=== PATIENT | female | born 1980 | race Caucasian/White ===

== ENCOUNTER 2018-12-20 11:29 | Observation (INO) | payer OTHER ==
[2018-12-20] MEDS ORDERED: Sodium Chloride 0.9% 1000 ML 1,000 ML IV STA (11:39)
[2018-12-20] MEDS: Zofran 4 MG/2 ML VIAL IV PRN (11:59)
[2018-12-20] MEDS: Levofloxacin 500MG/100ML D5W 500 MG/100 ML BAG IV SCH (12:02)
[2018-12-20] MEDS: Lactated Ringers 1,000 ML IV SCH ×2 (12:02→23:30)
[2018-12-20 12:08] LABS: BASOPHIL % 0.2 % (0.0-0.4); Basophil (Absolute #) 0.01 (0-0.4); Eosinophil % 4.9 % (0.00-5.0); Eosinophil (Absolute #) 0.24 (0-0.5); Granulocyte Absolute (ANC) 2.96 (1.4-6.9); Hematocrit 40.5 % (35-47); Hemoglobin 13.5 gm/dl (12.0-16.0); Lymphocyte (Absolute #) 1.23 (1.0-4.6); Lymphocytes % 25.4 % (24.0-44.0); Mean Cell Volume 92.3 fl (78-100); Mean Corpuscular Hemoglobin 30.8 pg (26-32); Mean Corpuscular Hgb Concent. 33.3 g/dl (32-36); Mean Platelet Volume 11.8 fl (6-9.5); Monocyte (Absolute #) 0.41 (0.0-1.3); Monocytes % 8.5 % (0.0-12.0); Platelet Count 218 K/mm3 (150-450); Red Blood Count 4.39 M/mm3 (4.1-5.4); Red Cell Distribution Width 14.1 % (11.5-14.0); White Blood Count 4.9 K/mm3 (4.0-10.5)
[2018-12-20 12:25] LABS: ALBUMIN 3.9 g/dL (3.5-5.0); ALKALINE PHOSPHATASE 42 U/L (38-126); AMYLASE 56 U/L (30-110); ANION GAP 15.6 MEQ/L (5-15); BLOOD UREA NITROGEN 9 mg/dL (7-17); CHLORIDE 110 mmol/L (98-107); Carbon Dioxide 18 mmol/L (22-30); Creatinine 1 0.71 mg/dL (0.52-1.04); Glucose 94 mg/dL (74-106); Potassium 3.8 mmol/L (3.5-5.1); SGOT/AST 31 U/L (14-36); SGPT/ALT 21 U/L (0-35); SODIUM 140 mmol/L (137-145); Total Protein 7.1 g/dL (6.3-8.2)
[2018-12-20] MEDS ORDERED: PROVENTIL COMMON CANISTER IH PRN (12:54)
[2018-12-20] MEDS ORDERED: Cyclobenzaprine 10 MG PO PRN (13:00)
[2018-12-20] MEDS ORDERED: MEDICATION INTERVENTION MC SCH (13:15)
[2018-12-20] MEDS: Protonix 40MG Tablet PO SCH (13:26)
[2018-12-20 16:49] LABS: Appearance TURBID (CLEAR); Bacteria RARE /HPF (NEGATIVE); Bilirubin NEGATIVE (NEGATIVE); Blood NEGATIVE Ery/ul (0-5); Epithelial Cells MODERATE /HPF (FEW); Glucose NEGATIVE (NEGATIVE); Hyaline Casts 0-2 /LPF (0-2); Ketones MODERATE (NEGATIVE); Leukocyte Esterase LARGE (NEGATIVE); Mucus SLIGHT /HPF (NEGATIVE); Nitrite NEGATIVE (NEGATIVE); Protein,Urine Dip NEGATIVE (Negative); Specific Gravity 1.021 (1.005-1.025); Urobilinogen NEGATIVE mg/dL (0-1); WBC 51-100 /HPF (0-5)
[2018-12-20] MEDS: Norco 10/325 MG Tablet PO PRN (20:13)
--- NOTE | 2018-12-20 20:32 | XRAY ---
Indication: Abdomen pain. Multiple contiguous axial images obtained through the abdomen and pelvis without contrast as ordered. Comparison: None Lung bases demonstrates right middle lobe calcified and noncalcified granulomas. No infiltrate or effusion. Heart is not enlarged. Noncontrasted stomach and bowel loops appear nonobstructed. Previous gastric bypass surgery. Normal appendix. There is a 5.3 x 3.7 x 3.7 cm right pelvic dermoid/teratoma mass. No free fluid/air. Spleen is enlarged measuring 13.4 cm in greatest axial dimension. Remaining liver, gallbladder, pancreas, spleen, adrenal glands, kidneys, ureters, uterus, and aorta appear unremarkable for noncontrast exam. Osseous structures intact with mild lower lumbar degenerative changes. Impression: 1. Right pelvic dermoid/teratoma mass as detailed. 2. Incidental right middle lobe calcified/noncalcified granulomas and splenomegaly. 3. Remaining CT abdomen/pelvis without contrast exam is negative. Comment: Preliminary interpretation was made by [facility]. No critical discrepancy. CTDI 23.68
--- NOTE | 2018-12-20 20:34 | XRAY ---
Indication: UTI. Pain. Comparison: None KUB nonacute and nonobstructed with gastric bypass surgery and CT proven right pelvic dermoid/teratoma. Remaining solid organs and osseous structures unremarkable. Comment: Preliminary interpretation was made by [facility]. No critical discrepancy.
[2018-12-20] MEDS: Prozac 20 MG PO SCH (23:26)
[2018-12-21] MEDS: Zofran 4 MG/2 ML VIAL IV PRN ×4 (07:54→21:59)
[2018-12-21] MEDS: Norco 10/325 MG Tablet PO PRN ×3 (07:56→17:29)
[2018-12-21] MEDS: Protonix 40MG Tablet PO SCH (08:36)
[2018-12-21] MEDS: Levofloxacin 500MG/100ML D5W 500 MG/100 ML BAG IV SCH (08:37)
[2018-12-21] MEDS: Lactated Ringers 1,000 ML IV SCH ×2 (08:42→17:33)
[2018-12-21] MEDS ORDERED: NON-FORMULARY ITEM (Omeprazole [Prilosec] 20 MG) PO SCH (10:00)
[2018-12-21] MEDS ORDERED: NON-FORMULARY ITEM (Fluticasone/Vilanterol [Breo Ellipta 100-25 Mcg Inh] 1 EACH) IH SCH (10:00)
--- NOTE | 2018-12-21 10:09 | PCM.HP ---
History of Present Illness - Chief Complaint Chief Complaint: uti History of Present Illness: is a 38 year old female pt of mine from [facility] with congentical myasthenia syndrome, thyroid nodule, obesity, and recent hx bariatric surgery ( October 2018) who has been treated twice for UTI in the past 1 month. She was initially given rocephin IM x 3d after UA done on 12/09/18 (which ended up mixed colonies), then with recurrence of sx on 12/16/18 she was started on macrobid, which she could not tolerate (this Ucx grew mixed colonies as well). Two days ago she called the office c/o low grade fevers and blood in the urine. She was instructed to go to as I was done seeing pts for the day. She went the next day (yesterday) and was admitted directly by me after I spoke with the nurse practitioner. Her UA showed 50-100 WBC and 3-5 RBC. neg nitrites. Pt showed me a picture of blood tinged mucous that she indicates came from her urethra. Temps were up to 99.9 at home. Was having LUQ/ epigastric pain, 8/10, intermittent, dull with sharp overtones, worse with eating. She had a question of a stone on the ureter on KUB so CT of the abd/pelvis was done which showed a 5.3cm x 3.7cm x 3.7 cm dermoid/teratoma mass in the R pelvis. Pt was admitted on IV levaquin. She is not feeling well today. Was given CLD but she has a poor appetite and feels she would do better on a regular diet. - Review of Systems Constitutional: Weight Loss (had bariatric surgery ) Cardiac: Edema (LE later in the day) Abdominal/Gastrointestinal: Abdominal Pain, Vomiting (of abx pills recently), Appetite Changes Genitourinary Symptoms: Frequency, Hematuria Skin: Rash (itchy that comes and goes, on back) Neurological: Dizziness, Other (no syncope) Psychological: No Anxiety, No Depression, No Suicidal Ideations, No Homicidal Ideations Medications & Allergies Home Medications: Home Medication List Cyclobenzaprine HCl 10 mg [Cyclobenzaprine 10 MG] 10 mg PO TIDPRN [History Confirmed 12/20/18] Hydrocodone/APAP 10/325 mg [[place] 10/325 MG Tablet] 1 tab PO QIDPRN PRN [History Confirmed 12/20/18] Omeprazole [Prilosec] 20 mg PO DAILY 06/30/15 [History Confirmed 12/20/18] Albuterol Common Canister [Proventil Common Canister] 2 puff IH Q4H PRN [History Confirmed 12/20/18] Fluoxetine HCl 20 mg [Prozac 20 MG] 1 cap PO HS 12/20/18 [History Confirmed 12/20/18] Fluticasone/Vilanterol [Breo Ellipta 100-25 Mcg INH] 1 each IH DAILY 12/20/18 [ History Confirmed 12/20/18] Pedi Multivit No.25/Folic Acid [Flintstones Multivit Chew Tab] 2 tab PO DAILY [History Confirmed 12/20/18] Vit D3/Folic Acid/B2/B6/B12 [Folgard Tablet] 1 each PO DAILY 12/20/18 [History Confirmed 12/20/18] Allergies/Adverse Reactions: Allergies Allergy/AdvReac Type Severity Reaction Status Date / Time NSAIDS (Non-Steroidal AdvReac Unknown Verified 12/20/18 23:25 Anti-Inflamma - Past Medical History Past Medical History: Yes Neurological History: Migraines ENT History: No Pertinent History Cardiac History: No Pertinent History Respiratory History: No Pertinent History Endocrine Medical History: Hypothyroidism Musculoskelatal History: No Pertinent History GI Medical History: GERD History: No Pertinent History Pyscho-Social History: No Pertinent History Reproductive Disorders: Menstrual Problems Comment: PT. TO HAVE HEART CATH 07/08/15; HX L-SPINE SURGERY - Female History Are you now?: No - Past Surgical History Past Surgical History: Yes Neuro Surgical History: No Pertinent History Cardiac History: No Pertinent History Respiratory Surgery: No Pertinent History GI Surgical History: No Pertinent History Genitourinary Surgical Hx: No Pertinent History Musculskeletal Surgical Hx: Orthopedic Surgery Female Surgical History: Other Other Surgical History: uterine thermal ablation, back surgery,L knee. D & C , several cyst. removed. nose. thyroid biopsy. tonsillectomy. - Social History Smoking Status: Never smoker Exposure to second hand smoke: No Alcohol: None Drug Use: none - Physical Exam Vital Signs: Vital Signs - 24 hr Temp Pulse Resp BP Pulse Ox 12/21/18 07:05 98.2 F 66 18 125/60 99 12/21/18 04:00 97.8 F 62 18 106/56 96 12/21/18 00:00 98.4 F 64 18 120/64 95 12/20/18 19:32 98.5 F 70 18 115/71 95 12/20/18 16:00 97.9 F 70 16 134/65 99 12/20/18 13:44 97 12/20/18 13:42 76 18 96 12/20/18 13:10 97.0 F 80 18 112/71 94 L 12/20/18 12:00 112/71 12/20/18 11:51 97.0 F 80 18 94 L General Appearance: no apparent distress, alert, obese Neurologic Exam: oriented x 3, cooperative Eye Exam: eyes nml inspection Ears, Nose, Throat Exam: moist mucous membranes Neck Exam: normal inspection Respiratory Exam: normal breath sounds, lungs clear, No crackles/rales, No rhonchi, No wheezing Cardiovascular Exam: regular rate/rhythm, normal heart sounds, No murmur Gastrointestinal/Abdomen Exam: soft, normal bowel sounds, tenderness (RUQ, LUQ, RLQ), No distention, No mass, No guarding, No rebound Back Exam: normal inspection, No CVA tenderness, No rash Extremity Exam: normal inspection, No pedal edema, No swelling Results - Labs Lab/Micro Results: Lab Results-Last 24 Hours 12/20/18 12/20/18 12/20/18 Range/Units 12:06 12:06 15:42 WBC 4.9 (4.0-10.5) K/mm3 RBC 4.39 (4.1-5.4) M/mm3 Hgb 13.5 (12.0-16.0) gm/dl Hct 40.5 (35-47) % MCV 92.3 (78-100) fl MCH 30.8 (26-32) pg MCHC 33.3 (32-36) g/dl RDW 14.1 H (11.5-14.0) % Plt Count 218 (150-450) K/mm3 MPV 11.8 H (6-9.5) fl Gran % 61.0 (36.0-66.0) % Eos # (Auto) 0.24 (0-0.5) Absolute Lymphs (auto) 1.23 (1.0-4.6) Absolute Monos (auto) 0.41 (0.0-1.3) Lymphocytes % 25.4 (24.0-44.0) % Monocytes % 8.5 (0.0-12.0) % Eosinophils % 4.9 (0.00-5.0) % Basophils % 0.2 (0.0-0.4) % Absolute Granulocytes 2.96 (1.4-6.9) Basophils # 0.01 (0-0.4) Sodium 140 (137-145) mmol/L Potassium 3.8 (3.5-5.1) mmol/L Chloride 110 H (98-107) mmol/L Carbon Dioxide 18 L (22-30) mmol/L Anion Gap 15.6 H (5-15) MEQ/L BUN 9 (7-17) mg/dL Creatinine 0.71 (0.52-1.04) mg/dL Estimated GFR > 60.0 ML/MIN Glucose 94 (74-106) mg/dL Calcium 9.0 (8.4-10.2) mg/dL Total Bilirubin 1.10 (0.2-1.3) mg/dL AST 31 (14-36) U/L ALT 21 (0-35) U/L Alkaline Phosphatase 42 (38-126) U/L Serum Total Protein 7.1 (6.3-8.2) g/dL Albumin 3.9 (3.5-5.0) g/dL Amylase 56 (30-110) U/L Lipase 69 (23-300) U/L Urine Color CARISSA (YELLOW) Urine Appearance TURBID (CLEAR) Urine pH 5.0 (5-6) Ur Specific [place] 1.021 (1.005-1.025) Urine Protein NEGATIVE (Negative) Urine Ketones MODERATE (NEGATIVE) Urine Blood NEGATIVE (0-5) Charly/ul Urine Nitrite NEGATIVE (NEGATIVE) Urine Bilirubin NEGATIVE (NEGATIVE) Urine Urobilinogen NEGATIVE (0-1) mg/dL Ur Leukocyte Esterase LARGE (NEGATIVE) Urine WBC (Auto) 51-100 (0-5) /HPF Urine RBC (Auto) 3-5 (0-2) /HPF U Hyaline Cast (Auto) 0-2 (0-2) /LPF U Epithel Cells (Auto) MODERATE (FEW) /HPF Urine Bacteria (Auto) RARE (NEGATIVE) /HPF Unidentified Crystals 2-5 (NEGATIVE) /HPF Urine Mucus (Auto) SLIGHT (NEGATIVE) /HPF Urine Culture Reflexed YES (NO) Urine Glucose NEGATIVE (NEGATIVE) mg/dL - Radiology Impressions Radiology Exams & Impressions: Radiology Procedures Category Date Time Status ABDOMEN AND PELVIS W/0 CONTRAS [CT] Routine Exams 12/20/18 15:37 Completed KUB Stat Exams 12/20/18 12:37 Completed - Other Procedures and Tests Respiratory Therapy 12/20/18 13:40 Respiratory MDI UD 12/20/18 13:41 Respiratory Therapy Assessment DAILY Assessment/Plan (1) UTI (urinary tract infection) Current Visit: Yes Status: Acute Qualifiers: Urinary tract infection type: acute cystitis Assessment & Plan: Dermoid/teratoma per CT abd/pelvis without IV contrast. Will have her f/u about this outpatient. I spoke with the compensation associate surgeon for that group, Dr. Robert Gordon, who indicated that they would not need to see the pt for this procedure. He recommended f/u with [facility] and stated that surgery for this tumor should not interfere with her recent gastric bypass. If she cannot or prefers not to go to for tx (as I usually refer to [facility]), Dr. Gordon recommended either Dr. Hoover (if she prefers a female physician) at the [facility] in [facility], or Dr. Nahid Houston (if she prefers a male physician) at [facility] [place]. Code(s): N39.0 - URINARY TRACT INFECTION, SITE NOT SPECIFIED (2) Pelvic mass Current Visit: Yes Status: Acute Assessment & Plan: Dermoid/Teratoma per CT without contrast. 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 Code(s): Z98.84 - BARIATRIC SURGERY STATUS
[2018-12-21 11:15] LABS: BASOPHIL % 0.3 % (0.0-0.4); Basophil (Absolute #) 0.01 (0-0.4); Eosinophil % 5.9 % (0.00-5.0); Eosinophil (Absolute #) 0.23 (0-0.5); Granulocytes % 56.2 % (36.0-66.0); Hematocrit 33.7 % (35-47); Hemoglobin 11.2 gm/dl (12.0-16.0); Lymphocyte (Absolute #) 1.12 (1.0-4.6); Lymphocytes % 28.6 % (24.0-44.0); Mean Cell Volume 93.1 fl (78-100); Mean Corpuscular Hemoglobin 30.9 pg (26-32); Mean Corpuscular Hgb Concent. 33.2 g/dl (32-36); Monocyte (Absolute #) 0.35 (0.0-1.3); Platelet Count 168 K/mm3 (150-450); Red Blood Count 3.62 M/mm3 (4.1-5.4); Red Cell Distribution Width 13.8 % (11.5-14.0); White Blood Count 3.9 K/mm3 (4.0-10.5)
[2018-12-21 11:26] LABS: ALBUMIN 3.2 g/dL (3.5-5.0); ALKALINE PHOSPHATASE 40 U/L (38-126); BLOOD UREA NITROGEN 6 mg/dL (7-17); CHLORIDE 106 mmol/L (98-107); Calcium 8.3 mg/dL (8.4-10.2); Carbon Dioxide 25 mmol/L (22-30); Creatinine 1 0.71 mg/dL (0.52-1.04); Glucose 80 mg/dL (74-106); Potassium 3.8 mmol/L (3.5-5.1); SGOT/AST 22 U/L (14-36); SGPT/ALT 19 U/L (0-35); SODIUM 140 mmol/L (137-145); Total Protein 5.9 g/dL (6.3-8.2)
[2018-12-21] MEDS: ENOXAPARIN SODIUM SQ SCH (12:38)
[2018-12-21] MEDS: Prozac 20 MG PO SCH (21:59)
[2018-12-22 06:13] LABS: BASOPHIL % 0.6 % (0.0-0.4); Basophil (Absolute #) 0.02 (0-0.4); Eosinophil % 6.8 % (0.00-5.0); Eosinophil (Absolute #) 0.23 (0-0.5); Granulocyte Absolute (ANC) 1.68 (1.4-6.9); Granulocytes % 49.4 % (36.0-66.0); Hematocrit 34.1 % (35-47); Hemoglobin 11.3 gm/dl (12.0-16.0); Lymphocyte (Absolute #) 1.15 (1.0-4.6); Lymphocytes % 33.8 % (24.0-44.0); Mean Cell Volume 92.4 fl (78-100); Mean Corpuscular Hemoglobin 30.6 pg (26-32); Mean Corpuscular Hgb Concent. 33.1 g/dl (32-36); Mean Platelet Volume 11.2 fl (6-9.5); Monocyte (Absolute #) 0.32 (0.0-1.3); Monocytes % 9.4 % (0.0-12.0); Platelet Count 166 K/mm3 (150-450); Red Blood Count 3.69 M/mm3 (4.1-5.4); Red Cell Distribution Width 13.9 % (11.5-14.0); White Blood Count 3.4 K/mm3 (4.0-10.5)
[2018-12-22] MEDS: Lactated Ringers 1,000 ML IV SCH (06:18)
[2018-12-22] MEDS: Norco 10/325 MG Tablet PO PRN (06:25)
[2018-12-22] MEDS: Zofran 4 MG/2 ML VIAL IV PRN (06:26)
[2018-12-22 06:32] LABS: ANION GAP 11.6 MEQ/L (5-15); BLOOD UREA NITROGEN 5 mg/dL (7-17); CHLORIDE 106 mmol/L (98-107); Calcium 8.1 mg/dL (8.4-10.2); Carbon Dioxide 24 mmol/L (22-30); Creatinine 1 0.67 mg/dL (0.52-1.04); Glucose 81 mg/dL (74-106); Potassium 3.3 mmol/L (3.5-5.1); SODIUM 138 mmol/L (137-145)
[2018-12-22] MEDS ORDERED: Klor Con 10 MEQ PO ONE (08:47)
[2018-12-22] MEDS: Protonix 40MG Tablet PO SCH (09:09)
[2018-12-22] MEDS: Levofloxacin 500MG/100ML D5W 500 MG/100 ML BAG IV SCH (09:10)
[2018-12-22] MEDS: ENOXAPARIN SODIUM SQ SCH (09:10)
[2018-12-22] MEDS ORDERED: Tums EX 750 MG PO SCH (10:00)
[2018-12-22 11:52] VITALS: BP 124/78; PULSE 68; O2SAT 98
--- NOTE | 2018-12-22 11:53 | PCM.DS ---
Discharge Summary Date of Admission: 12/20/18 11:29 Admitting Physician: RIANNA HUNTLEY Primary Care Provider: RIANNA HUNTLEY Allergies Allergies NSAIDS (Non-Steroidal Anti-Inflamma Adverse Reaction (Unknown, Verified 23:25) No NSAIDS due to bariatric surgery. Hospital Summary - Vitals & Intake/Output Vital Signs: Vital Signs Temperature 98.2 F 12/22/18 07:36 Pulse Rate 64 12/22/18 07:36 Respiratory Rate 18 12/22/18 07:36 Blood Pressure 109/59 12/22/18 07:36 O2 Sat by Pulse Oximetry 96 12/22/18 07:36 Intake & Output: Intake & Output 12/19/18 12/20/18 12/21/18 12/22/18 11:59 11:59 11:59 11:59 Intake Total 1440 2928 Output Total 600 1250 Balance 840 1678 Weight 97.1 kg 137.9 kg - Lab Result Diagrams: 12/22/18 05:52 12/22/18 05:00 Lab Results-Last 24 Hrs: Lab Results-Last 24 Hours 12/21/18 12/22/18 12/22/18 Range/Units 11:14 05:00 05:52 WBC 3.4 L (4.0-10.5) K/mm3 RBC 3.69 L (4.1-5.4) M/mm3 Hgb 11.3 L (12.0-16.0) gm/dl Hct 34.1 L (35-47) % MCV 92.4 (78-100) fl MCH 30.6 (26-32) pg MCHC 33.1 (32-36) g/dl RDW 13.9 (11.5-14.0) % Plt Count 166 (150-450) K/mm3 MPV 11.2 H (6-9.5) fl Gran % 49.4 (36.0-66.0) % Eos # (Auto) 0.23 (0-0.5) Absolute Lymphs (auto) 1.15 (1.0-4.6) Absolute Monos (auto) 0.32 (0.0-1.3) Lymphocytes % 33.8 (24.0-44.0) % Monocytes % 9.4 (0.0-12.0) % Eosinophils % 6.8 H (0.00-5.0) % Basophils % 0.6 (0.0-0.4) % Absolute Granulocytes 1.68 (1.4-6.9) Basophils # 0.02 (0-0.4) Sodium 140 138 (137-145) mmol/L Potassium 3.8 3.3 L (3.5-5.1) mmol/L Chloride 106 106 (98-107) mmol/L Carbon Dioxide 25 24 (22-30) mmol/L Anion Gap 13.0 11.6 (5-15) MEQ/L BUN 6 L 5 L (7-17) mg/dL Creatinine 0.71 0.67 (0.52-1.04) mg/dL Estimated GFR > 60.0 > 60.0 ML/MIN Glucose 80 81 (74-106) mg/dL Calcium 8.3 L 8.1 L (8.4-10.2) mg/dL Total Bilirubin 1.10 (0.2-1.3) mg/dL AST 22 (14-36) U/L ALT 19 (0-35) U/L Alkaline Phosphatase 40 (38-126) U/L Serum Total Protein 5.9 L (6.3-8.2) g/dL Albumin 3.2 L (3.5-5.0) g/dL 25-OH Vitamin D Total (30-100) ng/mL 12/22/18 Range/Units 06:00 WBC (4.0-10.5) K/mm3 RBC (4.1-5.4) M/mm3 Hgb (12.0-16.0) gm/dl Hct (35-47) % MCV (78-100) fl MCH (26-32) pg MCHC (32-36) g/dl RDW (11.5-14.0) % Plt Count (150-450) K/mm3 MPV (6-9.5) fl Gran % (36.0-66.0) % Eos # (Auto) (0-0.5) Absolute Lymphs (auto) (1.0-4.6) Absolute Monos (auto) (0.0-1.3) Lymphocytes % (24.0-44.0) % Monocytes % (0.0-12.0) % Eosinophils % (0.00-5.0) % Basophils % (0.0-0.4) % Absolute Granulocytes (1.4-6.9) Basophils # (0-0.4) Sodium (137-145) mmol/L Potassium (3.5-5.1) mmol/L Chloride (98-107) mmol/L Carbon Dioxide (22-30) mmol/L Anion Gap (5-15) MEQ/L BUN (7-17) mg/dL Creatinine (0.52-1.04) mg/dL Estimated GFR ML/MIN Glucose (74-106) mg/dL Calcium (8.4-10.2) mg/dL Total Bilirubin (0.2-1.3) mg/dL AST (14-36) U/L ALT (0-35) U/L Alkaline Phosphatase (38-126) U/L Serum Total Protein (6.3-8.2) g/dL Albumin (3.5-5.0) g/dL 25-OH Vitamin D Total 28.4 L (30-100) ng/mL Micro Results-Entire Visit: Microbiology 12/20/18 15:42 Urine Culture - Final Urine, Void MIXED RUSTY; 3 OR MORE TYPES. NO PREDOMINANT ORGANISM. NO FURTHER WORKUP. PLEASE RESUBMIT IF CLINICALLY INDICATED. - Radiology Exams Ordered Rad Exams-Entire Visit: Radiology Procedures Category Date Time Status ABDOMEN AND PELVIS W/0 CONTRAS [CT] Routine Exams 12/20/18 15:37 Completed KUB Stat Exams 12/20/18 12:37 Completed - Procedures and Test Procedures and Tests throughout Hospitalization: Therapy Orders & Screens 12/20/18 13:40 Respiratory MDI Comment: Diagnosis: uti 12/20/18 13:41 Respiratory Therapy Assessment DAILY Comment: Diagnosis: uti Final Diagnosis/Problem List - Final Discharge Diagnosis/Problem (1) Teratoma of pelvis Current Visit: Yes Status: Acute Assessment & Plan: teratoma right pelvis Code(s): D36.7 - BENIGN NEOPLASM OF OTHER SPECIFIED SITES (2) UTI (urinary tract infection) Current Visit: Yes Status: Acute Assessment & Plan: repeat UA ,clean catch and repeat culture. Rx Levaquin 500mg x 5 days Code(s): N39.0 - URINARY TRACT INFECTION, SITE NOT SPECIFIED (3) Abdominal pain Current Visit: Yes Status: Acute Assessment & Plan: chronic abdominal pain S/P bariatric surgery -has been on Hydrocodone for bouts of upper abdominal pain and is out and is asking for Rx. I filled a Bridge Rx # 14 tabs until she can see Dr Huntley in follow up. Code(s): R10.9 - UNSPECIFIED ABDOMINAL PAIN (4) Hx of bariatric surgery Current Visit: Yes Status: Acute Code(s): Z98.84 - BARIATRIC SURGERY STATUS (5) Congenital myasthenic syndrome Current Visit: Yes Status: Chronic Code(s): G70.2 - CONGENITAL AND DEVELOPMENTAL MYASTHENIA - Discharge Disposition: Home, Self-Care Condition: Stable Prescriptions: New Calcium Carbonate 750 mg [Tums EX 750 MG] 750 mg PO BID 30 Days #1 package Levofloxacin [Levaquin] 500 mg PO DAILY 5 Days #5 tablet Continue Omeprazole [Prilosec] 20 mg PO DAILY Cyclobenzaprine HCl 10 mg [Cyclobenzaprine 10 MG] 10 mg PO TIDPRN Hydrocodone/APAP 10/325 mg [[place] 10/325 MG Tablet] 1 tab PO QIDPRN PRN PRN Reason: Pain Fluoxetine HCl 20 mg [Prozac 20 MG] 1 cap PO HS Pedi Multivit No.25/Folic Acid [Flintstones Multivit Chew Tab] 2 tab PO DAILY Vit D3/Folic Acid/B2/B6/B12 [Folgard Tablet] 1 each PO DAILY Fluticasone/Vilanterol [Breo Ellipta 100-25 Mcg INH] 1 each IH DAILY Albuterol Common Canister [Proventil Common Canister] 2 puff IH Q4H PRN PRN Reason: Shortness Of Breath Instructions: Urinary Tract Infection, Adult (DC) Additional Instructions: COME TO [facility] ON 12/29 FOR LABWORK AND BRING PAPERWORK ('S ORDER) WITH YOU. Follow up with: BORA VALDERRAMA [COURTESY STAFF] - 12/29/18 2:00 pm RIANNA HUNTLEY [Primary Care Provider] - 01/01/19 10:45 am
[2018-12-22 12:20] LABS: Appearance CLEAR (CLEAR); Bacteria RARE /HPF (NEGATIVE); Bilirubin NEGATIVE (NEGATIVE); Blood NEGATIVE Ery/ul (0-5); Epithelial Cells RARE /HPF (FEW); Glucose NEGATIVE (NEGATIVE); Ketones SMALL (NEGATIVE); Leukocyte Esterase SMALL (NEGATIVE); Nitrite NEGATIVE (NEGATIVE); Protein,Urine Dip NEGATIVE (Negative); RBC 0-2 /HPF (0-2); Urobilinogen NEGATIVE mg/dL (0-1)
== END 2018-12-22 12:25 | disposition home or self-care (01) ==
LOC: MED SURG 11:29
PROVIDERS: ADMIT Family Medicine; ATTEND Family Medicine
DX: D36.7 Benign neoplasm of other specified sites (principal); N39.0 Urinary tract infection, site not specified; R10.9 Unspecified abdominal pain; Z98.84 Bariatric surgery status; G70.2 Congenital and developmental myasthenia; E03.9 Hypothyroidism, unspecified; R19.00 Intra-abdominal and pelvic swelling, mass and lump, unspecified site; K21.9 Gastro-esophageal reflux disease without esophagitis; Z79.899 Other long term (current) drug therapy
CPT/HCPCS: 36415; 74018; 74176; 80048; 80053; 81001; 82150; 82306; 83690; 85025; 87086; 94760; G0378; J1650; J1956; J2405; A9270-GY

== ENCOUNTER 2019-04-03 14:44 | Emergency (ER) | payer OTHER ==
[2019-04-03] MEDS ORDERED: Sodium Chloride 0.9% 1000 ML 1,000 ML IV STA (15:23)
[2019-04-03] MEDS ORDERED: Hydromorphone 1 mg/ml Ampule IV ONE (15:23)
[2019-04-03] MEDS ORDERED: Pepcid 20 MG VIAL IV ONE ×2 (15:25→15:51)
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
[2019-04-03 15:46] LABS: Absolute Neutrophil Ct (ANC) 3.25 (1.4-6.9); BASOPHIL % 0.4 % (0.0-0.4); Basophil (Absolute #) 0.02 (0-0.4); Eosinophil % 3.8 % (0.00-5.0); Hematocrit 34.8 % (35-47); Hemoglobin 11.7 gm/dl (12.0-16.0); Lymphocyte (Absolute #) 1.41 (1.0-4.6); Lymphocytes % 26.9 % (24.0-44.0); Mean Cell Volume 92.6 fl (78-100); Mean Corpuscular Hemoglobin 31.1 pg (26-32); Mean Corpuscular Hgb Concent. 33.6 g/dl (32-36); Mean Platelet Volume 10.9 fl (6-9.5); Monocyte (Absolute #) 0.36 (0.0-1.3); Monocytes % 6.9 % (0.0-12.0); Platelet Count 222 K/mm3 (150-450); Red Blood Count 3.76 M/mm3 (4.1-5.4); Red Cell Distribution Width 13.6 % (11.5-14.0); White Blood Count 5.2 K/mm3 (4.0-10.5)
[2019-04-03] MEDS ORDERED: Hydromorphone 1 mg/ml Ampule ONE (15:51)
[2019-04-03] MEDS ORDERED: Sodium Chloride 0.9% 1000 ML 1,000 ML ONE (15:51)
[2019-04-03 15:59] LABS: ALBUMIN 3.9 g/dL (3.5-5.0); ALKALINE PHOSPHATASE 58 U/L (38-126); AMYLASE 47 U/L (30-110); ANION GAP 15.2 MEQ/L (5-15); BLOOD UREA NITROGEN 18 mg/dL (7-17); CHLORIDE 107 mmol/L (98-107); Calcium 8.7 mg/dL (8.4-10.2); Carbon Dioxide 23 mmol/L (22-30); Creatinine 1 0.69 mg/dL (0.52-1.04); Glucose 88 mg/dL (74-106); LIPASE 36 U/L (23-300); Potassium 3.9 mmol/L (3.5-5.1); SGOT/AST 34 U/L (14-36); SGPT/ALT 26 U/L (0-35); SODIUM 142 mmol/L (137-145); Total Protein 7.1 g/dL (6.3-8.2)
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
[2019-04-03 18:06] LABS: Appearance SLIGHTLY CLOUDY (CLEAR); Bacteria RARE /HPF (NEGATIVE); Bilirubin NEGATIVE (NEGATIVE); Blood NEGATIVE Ery/ul (0-5); Epithelial Cells FEW /HPF (FEW); Glucose NEGATIVE (NEGATIVE); Ketones SMALL (NEGATIVE); Leukocyte Esterase SMALL (NEGATIVE); Mucus MANY /HPF (NEGATIVE); Nitrite NEGATIVE (NEGATIVE); Protein,Urine Dip NEGATIVE (Negative); Specific Gravity 1.056 (1.005-1.025); Urobilinogen 2 mg/dL (0-1)
[2019-04-03] MEDS ORDERED: TORAdol 30 mg Injection IV ONE (18:40)
[2019-04-03] MEDS ORDERED: TORAdol 30 mg Injection ONE (19:00)
[2019-04-03 19:14] VITALS: BP 117/87; PULSE 85; O2SAT 96
== END 2019-04-03 19:27 | disposition home or self-care (01) ==
LOC: ED 14:44
DX: R10.32 Left lower quadrant pain (principal); R03.0 Elevated blood-pressure reading, without diagnosis of hypertension; S16.1XXA Strain of muscle, fascia and tendon at neck level, initial encounter; S39.012A Strain of muscle, fascia and tendon of lower back, initial encounter; S29.019A Strain of muscle and tendon of unspecified wall of thorax, initial encounter; V53.6XXA Passenger in pick-up truck or van injured in collision with car, pick-up truck or van in traffic accident, initial encounter; M54.5 Low back pain; M54.2 Cervicalgia; Z79.899 Other long term (current) drug therapy; Z79.891 Long term (current) use of opiate analgesic; E03.9 Hypothyroidism, unspecified
CPT/HCPCS: 36000; 36415; 71046; 72050; 74177; 80053; 81001; 82150; 83605; 83690; 84703; 85025; 87086; 96374; 96375; 99285; J1170; J1885

== ENCOUNTER 2019-12-23 14:57 | Day surgery (SDC) | payer OTHER ==
[2019-12-23] MEDS ORDERED: Decadron 4 MG INJ IV ONE (14:58)
[2019-12-23] MEDS ORDERED: Sodium Chloride 0.9(Preservative Free) 10 ML IJ ONE (14:58)
[2019-12-23] MEDS ORDERED: Xylocaine 1% Vial 30 ML PF IJ ONE (14:58)
[2019-12-23] MEDS ORDERED: Lactated Ringers 1,000 ML IV ONE (16:39)
--- NOTE | 2019-12-23 18:47 | XRAY ---
29 seconds of fluoroscopy was used in surgery for a cervical BREE.
--- NOTE | 2019-12-23 18:50 | XRAY ---
Indication: Cervical BREE. Intraoperative fluoroscopy was provided for 29 seconds. 2 digital spot images submitted for interpretation demonstrates midline posterior needle tip projecting just posterior to the C7-T1 interspace. Small amount of contrast injected for needle tip placement. Correlate with intraoperative findings/report.
== END 2019-12-23 16:32 | disposition home or self-care (01) ==
LOC: SDC-PAIN 14:57
PROVIDERS: ATTEND Psychiatry & Neurology Pain Medicine
DX: M54.12 Radiculopathy, cervical region (principal); K21.9 Gastro-esophageal reflux disease without esophagitis; E06.3 Autoimmune thyroiditis; J45.909 Unspecified asthma, uncomplicated; G62.9 Polyneuropathy, unspecified; G70.2 Congenital and developmental myasthenia; Z79.899 Other long term (current) drug therapy
CPT/HCPCS: 62321; 72040; 77003; J1100; J2001; Q9966

== ENCOUNTER 2020-01-28 10:56 | Emergency (ER) | payer OTHER ==
--- NOTE | 2020-01-28 10:59 | ERPHSYRPT ---
- History of Present Illness Time Seen by Provider: 01/28/20 10:59 Source: patient Exam Limitations: no limitations Physician History: Is a 39-year-old white female who has a history of migraine headaches and presents with a 2-day history of similar type headache as her migraines. However it is lasted for 2 days. Her Maxalt medication is not helping. Patient denies head injury. It is been a while since she is had a CAT scan of her head per her report. Patient did drive herself but states she can get a ride home. Patient was sent here from the patient's doctor's office who told her to come to the emergency department to get some imaging performed. Patient has some other minor, generalized, chronic complaints. However, the main reason why she is here today, per her report, is her migraine headache. Timing/Duration: day(s) (2 days), worse Head Pain Location: global Severity of Pain-Max: moderate Severity of Pain-Current: moderate Recent Head Trauma: no recent headache/trauma, occasional headaches Modifying Factors: Improves With: exposure to light, noise Associated Symptoms: sensitive to light Previous symptoms: same symptoms as today Allergies/Adverse Reactions: NSAIDS (Non-Steroidal Anti-Inflamma Adverse Reaction (Unknown, Verified 04/03/19 15:10) No NSAIDS due to bariatric surgery. Home Medications: Cyclobenzaprine HCl 10 mg [Cyclobenzaprine 10 MG] 10 mg PO TIDPRN 06/30/15 [History] Omeprazole [Prilosec] 20 mg PO DAILY 06/30/15 [History] Albuterol Common Canister [Ventolin Common Canister] 2 puff IH Q4H PRN 12/20/18 [History] Fluoxetine HCl 20 mg [Prozac 20 MG] 1 cap PO HS 12/20/18 [History] Fluticasone/Vilanterol [Breo Ellipta 100-25 Mcg INH] 1 each IH DAILY 12/20/18 [History] Pedi Multivit No.25/Folic Acid [Flintstones Multivit Chew Tab] 2 tab PO DAILY 12/20/18 [History] Vit D3/Folic Acid/B2/B6/B12 [Folgard Tablet] 1 each PO DAILY 12/20/18 [History] Hx Tetanus, Diphtheria Vaccination/Date Given: (unk) Hx Influenza Vaccination/Date Given: No Hx Pneumococcal Vaccination/Date Given: No Travel Risk - International Travel Have you traveled outside of the country in past 3 weeks: No - Coronavirus Screening Are you exhibiting any of the following symptoms?: No Close contact with a COVID-19 positive Pt in past 14-21 Days: No - Review of Systems Constitutional: No Symptoms Eyes: No Symptoms Ears, Nose, & Throat: No Symptoms Respiratory: No Symptoms Cardiac: No Symptoms Abdominal/Gastrointestinal: No Symptoms Genitourinary Symptoms: No Symptoms Musculoskeletal: No Symptoms Skin: No Symptoms Neurological: Headache Psychological: No Symptoms Endocrine: No Symptoms Hematologic/Lymphatic: No Symptoms Immunological/Allergic: No Symptoms All Other Systems: Reviewed and Negative - Past Medical History Pertinent Past Medical History: Yes Neurological History: Migraines ENT History: No Pertinent History Cardiac History: No Pertinent History Respiratory History: No Pertinent History, Asthma Endocrine Medical History: Hypothyroidism Musculoskeletal History: No Pertinent History GI Medical History: GERD History: No Pertinent History Psycho-Social History: No Pertinent History Female Reproductive Disorders: Menstrual Problems Other Medical History: HX L-SPINE SURGERY. congenital muscle disease - Past Surgical History Past Surgical History: Yes Neuro Surgical History: No Pertinent History Cardiac: No Pertinent History, Cardiac Catheterization Respiratory: No Pertinent History Gastrointestinal: Other Genitourinary: No Pertinent History Musculoskeletal: Orthopedic Surgery Female Surgical History: Hysterectomy, Dilation & Curettage, Other Other Surgical History: uterine thermal ablation, back surgery 2011 ,L knee. D & C , several cyst. removed. thyroid biopsy. bariatric surgery 10/23/18 - Social History Smoking Status: Never smoker Exposure to second hand smoke: No Drug Use: none Patient Lives Alone: No - Nursing Vital Signs Nursing Vital Signs: Initial Vital Signs Temperature 98.8 F 01/28/20 11:10 Pulse Rate 82 01/28/20 11:10 Respiratory Rate 20 01/28/20 11:10 Blood Pressure 135/72 01/28/20 11:10 O2 Sat by Pulse Oximetry 96 01/28/20 11:10 Pain Scale Pain Intensity 8 - Physical Exam General Appearance: mild distress, alert, anxiety Eye Exam: PERRL/EOMI, eyes nml inspection Ears, Nose, Throat Exam: normal ENT inspection, moist mucous membranes Neck Exam: normal inspection, non-tender, supple, full range of motion Respiratory Exam: airway intact, No chest tenderness, No respiratory distress Gastrointestinal/Abdominal Exam: No tenderness Back Exam: normal inspection, normal range of motion, No CVA tenderness, No vertebral tenderness Extremity Exam: normal inspection, normal range of motion, pelvis stable Mental Status Exam: alert, oriented x 3, 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 Exam: normal hearing, normal speech, PERRL, tongue midline Coordination/Gait Exam: normal gait, normal cerebellar function Motor/Sensory Exam: no motor deficit, no sensory deficit Skin Exam: normal color, warm, dry Lymphatic Exam: No adenopathy SpO2 Interpretation: normal O2 Delivery: Room Air Ordered Tests: Active Orders 24 hr Category Date Time Status HEAD WITHOUT CONTRAST [CT] Stat Exams 01/28/20 11:31 Completed Medication Summary Discontinued Medications Generic Name Dose Route Start Last Admin Trade Name Elizabeth PRN Reason Stop Dose Admin Hydromorphone HCl 1 mg 01/28/20 12:06 Hydromorphone 1 Mg/Ml Ampule IM 01/28/20 12:07 STAT ONE Promethazine HCl 25 mg 01/28/20 12:06 Phenergan 25 Mg Inj IM 01/28/20 12:07 STAT ONE - Progress Progress: improved Air Movement: good Progress Note: 01/28/20 12:16 CAT scan of the head reveals no acute intracranial abnormality Blood Culture(s) Obtained: No Antibiotics given: No Counseled pt/family regarding: diagnosis, need for follow-up, rad results - Departure Departure Disposition: Home Clinical Impression: Migraine headache Condition: Stable Critical Care Time: No Referrals: RIANNA VAN [Primary Care Provider] - Additional Instructions: Take your medication as prescribed. Follow-up with your primary care physician for the addressing of your chronic medical conditions.
[2020-01-28] MEDS ORDERED: Hydromorphone 1 mg/ml Ampule IM ONE (12:06)
[2020-01-28] MEDS ORDERED: Phenergan 25 MG INJ IM ONE (12:06)
--- NOTE | 2020-01-28 12:10 | XRAY ---
Indication: Headache, nausea, and vomiting. Multiple contiguous axial images obtained through the head without contrast. Comparison: None Normal appearing brain parenchyma, ventricles, and bony calvarium. Visualized paranasal sinuses and mastoid air cells are clear. Impression: Normal CT head without contrast exam.
[2020-01-28] MEDS ORDERED: Hydromorphone 1 mg/ml Ampule ONE (12:40)
[2020-01-28] MEDS ORDERED: Phenergan 25 MG INJ ONE (12:40)
[2020-01-28] MEDS ORDERED: ZOFRAN ODT 4 MG PO ONE (13:02)
[2020-01-28] MEDS ORDERED: ZOFRAN ODT 4 MG ONE (13:07)
[2020-01-28 13:35] VITALS: BP 111/76; PULSE 67; O2SAT 97
== END 2020-01-28 13:30 | disposition home or self-care (01) ==
LOC: ED 10:56
DX: G43.909 Migraine, unspecified, not intractable, without status migrainosus (principal)
CPT/HCPCS: 70450; 96372; 99284; J1170; J2550; Q0162

== ENCOUNTER 2020-01-30 17:32 | Emergency (ER) | payer OTHER ==
[2020-01-30] MEDS ORDERED: Inapsine 5 MG/2 ML IV ONE (18:20)
[2020-01-30] MEDS ORDERED: Zofran 4 MG/2 ML VIAL IV ONE (18:20)
[2020-01-30] MEDS ORDERED: Sodium Chloride 0.9% 1000 ML 1,000 ML IV STA (18:20)
[2020-01-30] MEDS ORDERED: SUBLIMAZE 100 MCG/2 ML IV ONE (18:20)
--- NOTE | 2020-01-30 18:20 | ERPHSYRPT ---
- History of Present Illness Source: patient Exam Limitations: no limitations Timing/Duration: today Head Pain Location: occipital Severity of Pain-Max: moderate Severity of Pain-Current: moderate Recent Head Trauma: frequent headaches, chronic headaches Associated Symptoms: nausea/vomiting, neck pain Hx Tetanus, Diphtheria Vaccination/Date Given: (unk) Hx Influenza Vaccination/Date Given: No Hx Pneumococcal Vaccination/Date Given: No <GOLDIE VIZCARRA - Last Filed: 01/30/20 18:39> <ALO CAMACHO - Last Filed: 01/30/20 20:24> - History of Present Illness Time Seen by Provider: 01/30/20 18:18 Physician History: Patient is 39-year-old female with long history of for headache secondary to migraine as well as cervical disc degeneration as well as chronic sinusitis. Patient was in the emergency room 3 days ago and at that time she was given Toradol with very little help for her headache. She was given another dose of Toradol as an outpatient but her headache still persist so she came back to the emergency room today. She is complaining of nausea and stomach upset. She denies any fever chills or COVID exposure. (GOLDIE VIZCARRA) Allergies/Adverse Reactions: NSAIDS (Non-Steroidal Anti-Inflamma Adverse Reaction (Unknown, Verified 01/30/20 18:45) No NSAIDS due to bariatric surgery. Home Medications: Cyclobenzaprine HCl 10 mg [Cyclobenzaprine 10 MG] 10 mg PO TIDPRN 06/30/15 [History] Omeprazole [Prilosec] 20 mg PO DAILY 06/30/15 [History] Albuterol Common Canister [Ventolin Common Canister] 2 puff IH Q4H PRN 12/20/18 [History] Fluoxetine HCl 20 mg [Prozac 20 MG] 1 cap PO HS 12/20/18 [History] Fluticasone/Vilanterol [Breo Ellipta 100-25 Mcg INH] 1 each IH DAILY 12/20/18 [History] Pedi Multivit No.25/Folic Acid [Flintstones Multivit Chew Tab] 2 tab PO DAILY 12/20/18 [History] Vit D3/Folic Acid/B2/B6/B12 [Folgard Tablet] 1 each PO DAILY 12/20/18 [History] Gabapentin 400 mg PO TID 01/29/20 [History] Montelukast Sodium [Singulair] 4 mg PO DAILY 01/29/20 [History] Tiotropium [place] [Spiriva Respimat] 4 gm IH DAILY 01/29/20 [History] - Review of Systems Constitutional: No Fever, No Chills Eyes: No Symptoms Ears, Nose, & Throat: No Symptoms Respiratory: No Cough, No Dyspnea Cardiac: No Chest Pain, No Edema, No Syncope Abdominal/Gastrointestinal: No Abdominal Pain, No Nausea, No Vomiting, No Diarrhea Genitourinary Symptoms: No Dysuria Musculoskeletal: No Back Pain, No Neck Pain Skin: No Rash Neurological: Headache, No Dizziness, No Focal Weakness, No Sensory Changes Psychological: No Symptoms Endocrine: No Symptoms All Other Systems: Reviewed and Negative <CARMITA,GOLDIE - Last Filed: 01/30/20 18:39> - Past Medical History Pertinent Past Medical History: Yes Neurological History: Migraines ENT History: No Pertinent History Cardiac History: Arrhythmia Respiratory History: Asthma Endocrine Medical History: Hypothyroidism Musculoskeletal History: No Pertinent History GI Medical History: GERD History: No Pertinent History Psycho-Social History: No Pertinent History Female Reproductive Disorders: Menstrual Problems Other Medical History: HX L-SPINE SURGERY. congenital muscle disease - Past Surgical History Past Surgical History: Yes Neuro Surgical History: No Pertinent History Cardiac: Cardiac Catheterization Respiratory: No Pertinent History Gastrointestinal: Other Genitourinary: No Pertinent History Musculoskeletal: Orthopedic Surgery Female Surgical History: Hysterectomy, Dilation & Curettage, Other Other Surgical History: uterine thermal ablation, back surgery 2011 ,L knee. D & C , several cyst. removed. thyroid biopsy. bariatric surgery 10/23/18 - Social History Smoking Status: Never smoker Exposure to second hand smoke: No Drug Use: none Patient Lives Alone: No <CARMITA,GOLDIE - Last Filed: 01/30/20 18:39> - Physical Exam General Appearance: no apparent distress Eye Exam: PERRL/EOMI Ears, Nose, Throat Exam: normal ENT inspection, moist mucous membranes Neck Exam: normal inspection, supple, full range of motion, No meningismus Respiratory Exam: normal breath sounds, lungs clear Cardiovascular Exam: regular rate/rhythm, normal heart sounds Gastrointestinal/Abdominal Exam: soft, No tenderness, No distention Back Exam: normal inspection, normal range of motion Mental Status Exam: alert, oriented x 3, cooperative environment artist Exam: normal speech, PERRL, No facial droop Coordination/Gait Exam: normal cerebellar function Motor/Sensory Exam: no motor deficit, no sensory deficit Skin Exam: normal color, warm, dry, No rash <CARMITA,GOLDIE - Last Filed: 01/30/20 18:39> - Nursing Vital Signs Nursing Vital Signs: Initial Vital Signs Temperature 97.9 F 01/30/20 18:39 Pulse Rate 99 H 01/30/20 18:39 Respiratory Rate 01/30/20 18:39 O2 Sat by Pulse Oximetry 97 01/30/20 18:39 Pain Scale Pain Intensity 8 Ordered Tests: Medication Summary Discontinued Medications Generic Name Dose Route Start Last Admin Trade Name Trevorq PRN Reason Stop Dose Admin Droperidol 1.25 mg 01/30/20 18:20 01/30/20 19:19 Inapsine 5 Mg/2 Ml IV 01/30/20 18:21 1.25 mg STAT ONE Administration Droperidol Confirm 01/30/20 19:13 Inapsine 5 Mg/2 Ml Administered 01/30/20 19:14 Dose 5 mg .ROUTE .STK-MED ONE Fentanyl Citrate 50 mcg 01/30/20 18:20 01/30/20 19:23 Sublimaze 100 Mcg/2 Ml IV 01/30/20 18:21 50 mcg STAT ONE Administration Fentanyl Citrate Confirm 01/30/20 19:13 Sublimaze 100 Mcg/2 Ml Administered 01/30/20 19:14 Dose 100 mcg .ROUTE .STK-MED ONE Sodium Chloride 1,000 mls @ 999 mls/hr 01/30/20 18:20 01/30/20 19:19 Sodium Chloride 0.9% 1000 Ml IV 01/30/20 19:20 999 mls/hr .Q1H1M STA Administration Sodium Chloride Confirm 01/30/20 19:13 Sodium Chloride 0.9% 1000 Ml Administered 01/30/20 19:14 Dose 1,000 mls @ ud .ROUTE .STK-MED ONE Ondansetron HCl 4 mg 01/30/20 18:20 01/30/20 19:20 Zofran 4 Mg/2 Ml Vial IV 01/30/20 18:21 4 mg STAT ONE Administration Ondansetron HCl Confirm 01/30/20 19:13 Zofran 4 Mg/2 Ml Vial Administered 01/30/20 19:14 Dose 4 mg .ROUTE .STK-MED ONE - Progress Progress: re-examined Air Movement: good Blood Culture(s) Obtained: No Antibiotics given: No Counseled pt/family regarding: lab results, diagnosis, need for follow-up <ALO CAMACHO - Last Filed: 01/30/20 20:24> - Progress Progress Note: 01/30/20 18:57 pt received in handoff at change of shift from Dr. Vizcarra after discussion of prior w/u and is set up with pain management for Cspine Dx on recent imaging and well as neuro for headaches and is here for pain rescue tonight with no new symptoms or traumas or blood thinners or blood dyscrasias. No neuro deficits or findings. 01/30/20 20:19 pt states headache has resolved - no neuro symptoms; no neuro deficit on exam, no temporal tenderness ; normal fundi, no pronator drift . 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 (ALO CAMACHO) <GOLDIE VIZCARRA - Last Filed: 01/30/20 18:39> - Departure Departure Disposition: Home Critical Care Time: No <ALO CAMACHO - Last Filed: 01/30/20 20:24> - Departure Clinical Impression: chronic recuring headaches , cervical spine DDD/DJD Condition: Good Referrals: RIANNA VAN [Primary Care Provider] - Instructions: Headache, Adult (DC) Additional Instructions: followup with your Neurologist and pain Drs as planned and return meantime if fever, increasing symptoms or any neuro symptoms new numbness , weakness or other concerns
[2020-01-30 18:45] VITALS: O2SAT 97
[2020-01-30] MEDS ORDERED: Zofran 4 MG/2 ML VIAL ONE (19:13)
[2020-01-30] MEDS ORDERED: Inapsine 5 MG/2 ML ONE (19:13)
[2020-01-30] MEDS ORDERED: SUBLIMAZE 100 MCG/2 ML ONE (19:13)
[2020-01-30] MEDS ORDERED: Sodium Chloride 0.9% 1000 ML 1,000 ML ONE (19:13)
[2020-01-30 20:24] VITALS: BP 127/70; PULSE 65
== END 2020-01-30 20:33 | disposition home or self-care (01) ==
LOC: ED 17:32
DX: R51 Headache (principal); M50.30 Other cervical disc degeneration, unspecified cervical region; M47.892 Other spondylosis, cervical region
CPT/HCPCS: 96374; 96375; 99284; J2405; J3010

== ENCOUNTER 2020-03-28 07:25 | Day surgery (SDC) | payer OTHER ==
[2020-03-28] MEDS ORDERED: MEFOXIN 2 GM PREMIX** 2 GM/50 ML ML IV ONE (07:47)
[2020-03-28] MEDS ORDERED: Lactated Ringers 1,000 ML IV ONE ×2 (07:47→09:08)
[2020-03-28] MEDS ORDERED: MEFOXIN 2 GM PREMIX** 2 GM/50 ML ML IV SCH (08:00)
[2020-03-28] MEDS ORDERED: Lactated Ringers 1,000 ML IV SCH (08:00)
--- NOTE | 2020-03-28 08:03 | HP ---
DATE OF SURGERY: 03/28/2020 HISTORY OF PRESENT ILLNESS: The patient is a 39 year old who had some left upper abdominal pain radiating to right upper quadrant. CT scan showed stones and prior gastric bypass, no evidence of disease. She has been having symptoms with eating but not with bland food. PAST MEDICAL HISTORY: Asthma. Migraines. Gastroesophageal reflux disease. Congenital muscle disease. [place]. Enlarged spleen. Peripheral neuropathy. PAST SURGICAL HISTORY: Cardiac catheterization. Bariatric surgery. Back surgery. Cysts removed. Thyroid biopsy. D&C. Hysterectomy. Lumbar spine surgery. MEDICATIONS: Omeprazole, Spiriva, Pepcid, Prozac, Albuterol, carvedilol, oxybutynin, estradiol, vitamin D3, Singulair, diclofenac gel, Mestinon, gabapentin, Azelastine. ALLERGIES: NSAIDS. FAMILY HISTORY: Throat cancer. Colon cancer. Hypertension. SOCIAL HISTORY: No smoking or alcohol use. REVIEW OF SYSTEMS: Fourteen systems reviewed. No chest pain or palpitations. Other systems negative or noncontributory as above and per preadmission questionnaire. PHYSICAL EXAMINATION: GENERAL: No acute distress. HEENT: Sclerae nonicteric. NECK: No JVD. CHEST: Equal excursion, nonlabored breathing. CVS: Regular rate and rhythm. ABDOMEN: Soft. No peritoneal signs. EXTREMITIES: No edema. NEURO: Alert, oriented, moving extremities symmetrically. No gross motor deficits noted. PSYCH: Appropriate mood and affect. IMPRESSION: Right upper quadrant pain radiating to the back. I feel she would benefit from diagnostic laparoscopy for further evaluation given persistent symptoms. She prefers to go ahead and proceed cholecystectomy at this point. If it fails to improve her symptoms would consider upper endoscopy, other studies or procedures. Risks and benefits were explained in detail. I feel she is a candidate for cholecystectomy. Risks and benefits explained in detail including but not limited to bleeding or infection, risk of trocar injury or hernia, risk of bowel, bladder or blood vessel injury, risk of bile leak, bile duct injury, retained stone or sludge possibly requiring further procedure either open or ERCP, general risk of anesthesia, deep venous thrombosis, pulmonary embolism, pneumonia, perioperative risk of aches, pains, bloating, constipation and/or loose stools possibly even chronic in nature, possibility the procedure may not improve her symptoms. She may need further work up and/or testing, endoscopy, other studies or procedures. She understands and agrees to the planned procedure, will proceed with laparoscopic cholecystectomy with possible open as an outpatient.
[2020-03-28] MEDS ORDERED: Sensorcaine 0.25% 10 ML ONE (09:07)
[2020-03-28] MEDS ORDERED: DIPRIVAN 200 MG/20 ML IV ONE (09:41)
[2020-03-28] MEDS ORDERED: Sufenta 50 MCG/ML ONE (09:41)
[2020-03-28] MEDS ORDERED: Versed 2 MG/2 ML Injection ONE (09:41)
[2020-03-28] MEDS ORDERED: PHENYLEPHRINE HCL ONE (10:29)
[2020-03-28] MEDS ORDERED: Pre-Attached Lta Kit TP ONE (10:33)
[2020-03-28] MEDS ORDERED: SUBLIMAZE 100 MCG/2 ML ONE (11:01)
[2020-03-28] MEDS ORDERED: Zofran 4 MG/2 ML VIAL IV PRN (12:05)
[2020-03-28 12:35] VITALS: O2SAT 99
[2020-03-28 12:41] VITALS: BP 130/80; PULSE 68
--- NOTE | 2020-03-29 08:52 | OP ---
SURGERY DATE/TIME: 03/28/2020 0954 PREOPERATIVE DIAGNOSIS: Acute exacerbation symptomatic cholelithiasis, chronic cholecystitis. POSTOPERATIVE DIAGNOSIS: Acute exacerbation symptomatic cholelithiasis, chronic cholecystitis. PROCEDURE: Laparoscopic cholecystectomy. SURGEON: Dr. Nahid Garcia. ANESTHESIA: General. ESTIMATED BLOOD LOSS: Minimal. INDICATIONS: As noted above. Risks and benefits explained in detail but not limited to and consent obtained. DESCRIPTION OF PROCEDURE AND FINDINGS: The patient was taken to the operating room. General anesthesia induced. Abdomen prepped and draped in the usual sterile fashion. After official time out and no disagreement with planned procedure, a transverse incision made at the supraumbilical area. Fascia grasped and pulled upward. Veress needle inserted and tested with saline. Pneumoperitoneum accomplished insufflating opening pressure of 0-15. An 11 mm bladeless port and camera inserted without difficulty followed by two - 5 mm right upper quadrant ports and 5 mm epigastric port. The gallbladder is grasped. It had some mild chronic inflammatory reaction. Dissecting posterior, lateral to anterior fashion slowly and carefully cystic duct and infundibular area slowly and carefully well skeletonized until the critical view obtained both anteriorly and posteriorly. Once this was accomplished the cystic duct and cystic artery clipped x3 and divided in usual fashion. Gallbladder slowly and carefully dissected free clipping additional oozing side branches off the cystic artery directly on the gallbladder wall as necessary. Just prior to releasing from final attachments to the anterior edge of the liver, the liver bed re-inspected. Clips noted to be in place in cystic duct and cystic artery stumps. No signs of any active bleeding or bowel leakage. It was felt there was no benefit from drain placement. Gallbladder released from final attachments to anterior edge of the liver. The gallbladder is pulled up into the supraumbilical 10/11 port size site, decompressed of bile and sludge, pulled free and passed off. Copious amount of irrigation accomplished lateral to the liver and subhepatic space irrigating until clear. Liver bed re-inspected. Clips noted in place cystic duct and cystic artery stump. No signs of any active bleeding or bile leakage. It was felt there is no benefit from drain placement. Fascial defect 10/11 site was closed with puncture closure device with #1 Vicryl. Pneumoperitoneum decompressed. The wound irrigated out. Skin incision closed with 4-0 Vicryl. Steri-Strips and sterile dressing applied. The patient tolerated the procedure well. There were no immediate complications. Findings discussed with the family out in the waiting area.
== END 2020-03-28 12:30 | disposition home or self-care (01) ==
LOC: SDC 07:25
PROVIDERS: ATTEND Surgery
DX: K80.10 Calculus of gallbladder with chronic cholecystitis without obstruction (principal); Z79.899 Other long term (current) drug therapy
CPT/HCPCS: 88304; J0694; J2250; J2370; J2405; J2704; J3010

== ENCOUNTER 2020-04-02 15:34 | Emergency (ER) | payer OTHER ==
[2020-04-02] MEDS ORDERED: MORPHINE SULFATE 2 MG INJ IV ONE (16:04)
[2020-04-02] MEDS ORDERED: Zofran 4 MG/2 ML VIAL IV ONE (16:04)
[2020-04-02] MEDS ORDERED: Sodium Chloride 0.9% 1000 ML 1,000 ML IV STA (16:04)
[2020-04-02] MEDS ORDERED: Zofran 4 MG/2 ML VIAL ONE (16:12)
[2020-04-02] MEDS ORDERED: Sodium Chloride 0.9% 1000 ML 1,000 ML ONE (16:12)
[2020-04-02 16:30] LABS: BASOPHIL % 0.2 % (0.0-0.4); Basophil (Absolute #) 0.01 (0-0.4); Eosinophil % 10.8 % (0.00-5.0); Hematocrit 36.7 % (35-47); Hemoglobin 12.1 gm/dl (12.0-16.0); Lymphocyte (Absolute #) 1.67 (1.0-4.6); Mean Cell Volume 94.6 fl (78-100); Mean Corpuscular Hemoglobin 31.2 pg (26-32); Monocyte (Absolute #) 0.38 (0.0-1.3); Monocytes % 6.8 % (0.0-12.0); Neutrophil % 52.2 % (36.0-66.0); Platelet Count 236 K/mm3 (150-450); Red Blood Count 3.88 M/mm3 (4.1-5.4); Red Cell Distribution Width 12.6 % (11.5-14.0); White Blood Count 5.6 K/mm3 (4.0-10.5)
[2020-04-02 16:37] LABS: Appearance SLIGHTLY CLOUDY (CLEAR); Bacteria FEW /HPF (NEGATIVE); Bilirubin NEGATIVE (NEGATIVE); Blood NEGATIVE Ery/ul (0-5); Calcium Oxalate Crystals 0-2 /HPF (NEGATIVE); Epithelial Cells FEW /HPF (FEW); Glucose NEGATIVE (NEGATIVE); Ketones NEGATIVE (NEGATIVE); Leukocyte Esterase NEGATIVE (NEGATIVE); Mucus SLIGHT /HPF (NEGATIVE); Nitrite NEGATIVE (NEGATIVE); Protein,Urine Dip NEGATIVE (Negative); Specific Gravity 1.013 (1.005-1.025); Urobilinogen 4 mg/dL (0-1)
[2020-04-02 17:06] LABS: ALBUMIN 3.6 g/dL (3.5-5.0); ALKALINE PHOSPHATASE 85 U/L (38-126); ANION GAP 9.5 MEQ/L (5-15); BLOOD UREA NITROGEN 14 mg/dL (7-17); CHLORIDE 106 mmol/L (98-107); Calcium 8.1 mg/dL (8.4-10.2); Carbon Dioxide 25 mmol/L (22-30); Creatinine 1 0.76 mg/dL (0.52-1.04); EST GLOMERULAR FILTRATION RATE > 60.0 ML/MIN; Glucose 83 mg/dL (74-106); LIPASE 56 U/L (23-300); Potassium 4.2 mmol/L (3.5-5.1); SGOT/AST 38 U/L (14-36); SGPT/ALT 24 U/L (0-35); SODIUM 136 mmol/L (137-145); Total Protein 6.2 g/dL (6.3-8.2)
[2020-04-02] MEDS ORDERED: MORPHINE SULFATE 2 MG INJ ONE (17:53)
--- NOTE | 2020-04-02 17:57 | ERPHSYRPT ---
- History of Present Illness Time Seen by Provider: 04/02/20 15:55 Historian: patient Exam Limitations: no limitations Patient Subjective Stated Complaint: Abdominal pain Triage Nursing Assessment: Patient ambulated back to ED and transferred self to bed. Patient A+O X 3. Patient's skin pink, warm and dry. Patient complains of abdominal pain after eating X 2. Patient had recent gallbladder surgery on Saturday03/28/[address] Banks. Patient's abdomen soft and round with BS X 4. Patient denies N/V or diarrhea. Pain is 9/10. Physician History: 39 years old female with history of laparoscopic cholecystectomy postop day 5 presented in the ER with gradually increasing pain epigastric and right upper quadrant since last night moderate intensity sharp in nature, nonradiating, aggravated with movements palpation and partial relief with being still and taking Hinton's. She also reports increasing nausea since last night but has no vomiting. Does have history of bariatric surgery and does not usually vomit a lot. No fever or chills reported. Denies any diarrhea. Timing/Duration: yesterday, gradual onset, worse Activities at Onset: activity, rest Quality: sharpness Abdominal Pain Onset Location: RUQ, epigastric Pain Radiation: no radiation Severity of Pain-Max: moderate Severity of Pain-Current: moderate Modifying Factors: Improves With: rest. Worsens With: movement, palpation Associated Symptoms: nausea Previous symptoms: no prior history Allergies/Adverse Reactions: NSAIDS (Non-Steroidal Anti-Inflamma Adverse Reaction (Unknown, Verified 04/02/20 16:08) No NSAIDS due to bariatric surgery. Home Medications: Cyclobenzaprine HCl 10 mg [Cyclobenzaprine 10 MG] 10 mg PO TIDPRN 06/30/15 [History] Omeprazole [Prilosec] 20 mg PO DAILY 06/30/15 [History] Albuterol Common Canister [Ventolin Common Canister] 2 puff IH Q4H PRN 12/20/18 [History] Fluoxetine HCl 20 mg [Prozac 20 MG] 1 cap PO HS 12/20/18 [History] Fluticasone/Vilanterol [Breo Ellipta 100-25 Mcg INH] 1 each IH DAILY 12/20/18 [History] Pedi Multivit No.25/Folic Acid [Flintstones Multivit Chew Tab] 2 tab PO DAILY 12/20/18 [History] Gabapentin 800 mg PO TID 01/29/20 [History] Montelukast Sodium [Singulair] 4 mg PO DAILY 01/29/20 [History] Tiotropium [place] [Spiriva Respimat] 4 gm IH DAILY 01/29/20 [History] Azelastine Nasal [Astelin Nasal] 1 spray INTRANASAL UD 03/25/20 [History] Carvedilol 3.125 mg [Coreg 3.125 MG] 3.125 mg PO BID 03/25/20 [History] Diclofenac Sodium Gel [Voltaren GEL] 1 applic TOP UD PRN 03/25/20 [History] Estradiol 1 mg [Estrace 1 mg] 1 mg PO DAILY 03/25/20 [History] Ondansetron ODT 4 MG [Zofran Odt 4 mg] 4 mg PO Q4-6HPRN PRN 03/25/20 [History] Oxybutynin Chloride [Oxybutynin Chloride ER] 10 mg PO DAILY 03/25/20 [History] Pyridostigmine [place] [Mestinon] 60 mg PO TID 03/25/20 [History] Topiramate [Topamax] 50 mg PO BID 03/25/20 [History] Trazodone HCl 150 mg PO DAILY 03/25/20 [History] Hx Tetanus, Diphtheria Vaccination/Date Given: (unk) Hx Influenza Vaccination/Date Given: No Hx Pneumococcal Vaccination/Date Given: No Immunizations Up to Date: Yes Travel Risk - International Travel Have you traveled outside of the country in past 3 weeks: No - Coronavirus Screening Are you exhibiting any of the following symptoms?: No Close contact with a COVID-19 positive Pt in past 14-21 Days: No - Review of Systems Constitutional: No Symptoms Eyes: No Symptoms Ears, Nose, & Throat: No Symptoms Respiratory: No Symptoms Cardiac: No Symptoms Abdominal/Gastrointestinal: Abdominal Pain, Nausea Genitourinary Symptoms: No Symptoms Musculoskeletal: No Symptoms Skin: No Symptoms Neurological: No Symptoms Psychological: No Symptoms Endocrine: No Symptoms Hematologic/Lymphatic: No Symptoms Immunological/Allergic: No Symptoms - Past Medical History Pertinent Past Medical History: Yes Neurological History: Migraines, Peripheral Neuropathy, Other ENT History: No Pertinent History Cardiac History: Other Respiratory History: Asthma Endocrine Medical History: Other Musculoskeletal History: Other GI Medical History: GERD, Gallbladder Disease History: No Pertinent History Psycho-Social History: No Pertinent History Female Reproductive Disorders: Menstrual Problems Other Medical History: Congenital Myathenic Syndrome , Hashimotos, Bariatric surgery, enlarged spleen, Peripherial neuropathy. - Past Surgical History Past Surgical History: Yes Neuro Surgical History: No Pertinent History Cardiac: Cardiac Catheterization Respiratory: No Pertinent History Gastrointestinal: Other Genitourinary: No Pertinent History Musculoskeletal: Orthopedic Surgery Female Surgical History: Hysterectomy, Dilation & Curettage, Other Other Surgical History: uterine thermal ablation, back surgery 2011 ,L knee scope D & C , several cyst. removed. thyroid biopsy. bariatric surgery 10/23/18. ear tubes - Social History Smoking Status: Never smoker Exposure to second hand smoke: No Drug Use: none Patient Lives Alone: No - Female History Hx Last Menstrual Period: hysterectomy 2018 Hx Now: (unkn) - Nursing Vital Signs Nursing Vital Signs: Initial Vital Signs Temperature 98.0 F 04/02/20 15:56 Pulse Rate 85 04/02/20 15:56 Respiratory Rate 18 04/02/20 15:56 Blood Pressure 95/72 04/02/20 15:56 O2 Sat by Pulse Oximetry 99 04/02/20 15:56 Pain Scale Pain Intensity 4 - Physical Exam General Appearance: no apparent distress, alert Eye Exam: eyes nml inspection Ears, Nose, Throat Exam: normal ENT inspection, pharynx normal Neck Exam: normal inspection, supple, full range of motion Respiratory Exam: normal breath sounds, lungs clear Cardiovascular Exam: regular rate/rhythm, normal heart sounds Gastrointestinal/Abdomen Exam: soft, normal bowel sounds, tenderness (Right upper quadrant/epigastric area), No guarding Back Exam: normal inspection Extremity Exam: normal inspection, normal range of motion Neurologic Exam: alert, oriented x 3, cooperative Skin Exam: normal color SpO2 Interpretation: normal SpO2: 98 O2 Delivery: Room Air Ordered Tests: Active Orders 24 hr Category Date Time Status IV Insertion STAT Care 04/02/20 16:04 Completed NPO (ED) STAT Care 04/02/20 16:04 Completed ABDOMEN AND PELVIS W CONTRAST [CT] Stat Exams 04/02/20 16:04 Completed AMYLASE Stat Lab 04/02/20 16:23 Completed CBC W DIFF Stat Lab 04/02/20 16:23 Completed CMP Stat Lab 04/02/20 16:23 Completed CULTURE,URINE Stat Lab 04/02/20 16:23 Received HCG,QUALITATIVE URINE Stat Lab 04/02/20 16:23 Completed LIPASE Stat Lab 04/02/20 16:23 Completed UA W/RFX UR CULTURE Stat Lab 04/02/20 16:23 Completed Medication Summary Discontinued Medications Generic Name Dose Route Start Last Admin Trade Name Elizabeth PRN Reason Stop Dose Admin Sodium Chloride 1,000 mls @ 999 mls/hr 04/02/20 16:04 04/02/20 17:22 Sodium Chloride 0.9% 1000 Ml IV 04/02/20 17:04 Infused .Q1H1M STA Infusion Sodium Chloride Confirm 04/02/20 16:12 Sodium Chloride 0.9% 1000 Ml Administered 04/02/20 16:13 Dose 1,000 mls @ ud .ROUTE .STK-MED ONE Morphine Sulfate 2 mg 04/02/20 16:04 04/02/20 17:55 Morphine Sulfate 2 Mg Inj IV 04/02/20 16:05 2 mg STAT ONE Administration Morphine Sulfate Confirm 04/02/20 17:53 Morphine Sulfate 2 Mg Inj Administered 04/02/20 17:54 Dose 2 mg .ROUTE .STK-MED ONE Ondansetron HCl 4 mg 04/02/20 16:04 04/02/20 16:13 Zofran 4 Mg/2 Ml Vial IV 04/02/20 16:05 4 mg STAT ONE Administration Ondansetron HCl Confirm 04/02/20 16:12 Zofran 4 Mg/2 Ml Vial Administered 04/02/20 16:13 Dose 4 mg .ROUTE .STK-MED ONE Lab/Rad Data: Laboratory Result Diagrams 04/02/20 16:23 04/02/20 16:23 Laboratory Results 04/02/20 04/02/20 04/02/20 Range/Units 16:23 16:23 16:23 WBC (4.0-10.5) K/mm3 RBC (4.1-5.4) M/mm3 Hgb (12.0-16.0) gm/dl Hct (35-47) % MCV (78-100) fl MCH (26-32) pg MCHC (32-36) g/dl RDW (11.5-14.0) % Plt Count (150-450) K/mm3 MPV (7.5-11.0) fl Gran % (36.0-66.0) % Eos # (Auto) (0-0.5) Absolute Lymphs (auto) (1.0-4.6) Absolute Monos (auto) (0.0-1.3) Lymphocytes % (24.0-44.0) % Monocytes % (0.0-12.0) % Eosinophils % (0.00-5.0) % Basophils % (0.0-0.4) % Absolute Granulocytes (1.4-6.9) Basophils # (0-0.4) Sodium 136 L (137-145) mmol/L Potassium 4.2 (3.5-5.1) mmol/L Chloride 106 (98-107) mmol/L Carbon Dioxide 25 (22-30) mmol/L Anion Gap 9.5 (5-15) MEQ/L BUN 14 (7-17) mg/dL Creatinine 0.76 (0.52-1.04) mg/dL Estimated GFR > 60.0 ML/MIN Glucose 83 (74-106) mg/dL Calcium 8.1 L (8.4-10.2) mg/dL Total Bilirubin 0.60 (0.2-1.3) mg/dL AST 38 H (14-36) U/L ALT 24 (0-35) U/L Alkaline Phosphatase 85 (38-126) U/L Serum Total Protein 6.2 L (6.3-8.2) g/dL Albumin 3.6 (3.5-5.0) g/dL Amylase 59 (30-110) U/L Lipase 56 (23-300) U/L Urine Color YELLOW (YELLOW) Urine Appearance SLIGHTLY CLOUDY (CLEAR) Urine pH 7.0 (5-6) Ur Specific [place] 1.013 (1.005-1.025) Urine Protein NEGATIVE (Negative) Urine Ketones NEGATIVE (NEGATIVE) Urine Blood NEGATIVE (0-5) Charly/ul Urine Nitrite NEGATIVE (NEGATIVE) Urine Bilirubin NEGATIVE (NEGATIVE) Urine Urobilinogen 4 (0-1) mg/dL Ur Leukocyte Esterase NEGATIVE (NEGATIVE) Urine WBC (Auto) 3-5 (0-5) /HPF Urine RBC (Auto) 3-5 (0-2) /HPF U Epithel Cells (Auto) FEW (FEW) /HPF Urine Bacteria (Auto) FEW (NEGATIVE) /HPF Calcium Oxalate Crystal 0-2 (NEGATIVE) /HPF Urine Mucus (Auto) SLIGHT (NEGATIVE) /HPF Urine Culture Reflexed YES (NO) Urine Glucose NEGATIVE (NEGATIVE) mg/dL Urine HCG, Qual NEGATIVE (Negative) 04/02/20 Range/Units 16:23 WBC 5.6 (4.0-10.5) K/mm3 RBC 3.88 L (4.1-5.4) M/mm3 Hgb 12.1 (12.0-16.0) gm/dl Hct 36.7 (35-47) % MCV 94.6 (78-100) fl MCH 31.2 (26-32) pg MCHC 33.0 (32-36) g/dl RDW 12.6 (11.5-14.0) % Plt Count 236 (150-450) K/mm3 MPV 10.0 (7.5-11.0) fl Gran % 52.2 (36.0-66.0) % Eos # (Auto) 0.60 H (0-0.5) Absolute Lymphs (auto) 1.67 (1.0-4.6) Absolute Monos (auto) 0.38 (0.0-1.3) Lymphocytes % 30.0 (24.0-44.0) % Monocytes % 6.8 (0.0-12.0) % Eosinophils % 10.8 H (0.00-5.0) % Basophils % 0.2 (0.0-0.4) % Absolute Granulocytes 2.90 (1.4-6.9) Basophils # 0.01 (0-0.4) Sodium (137-145) mmol/L Potassium (3.5-5.1) mmol/L Chloride (98-107) mmol/L Carbon Dioxide (22-30) mmol/L Anion Gap (5-15) MEQ/L BUN (7-17) mg/dL Creatinine (0.52-1.04) mg/dL Estimated GFR ML/MIN Glucose (74-106) mg/dL Calcium (8.4-10.2) mg/dL Total Bilirubin (0.2-1.3) mg/dL AST (14-36) U/L ALT (0-35) U/L Alkaline Phosphatase (38-126) U/L Serum Total Protein (6.3-8.2) g/dL Albumin (3.5-5.0) g/dL Amylase (30-110) U/L Lipase (23-300) U/L Urine Color (YELLOW) Urine Appearance (CLEAR) Urine pH (5-6) Ur Specific [place] (1.005-1.025) Urine Protein (Negative) Urine Ketones (NEGATIVE) Urine Blood (0-5) Charly/ul Urine Nitrite (NEGATIVE) Urine Bilirubin (NEGATIVE) Urine Urobilinogen (0-1) mg/dL Ur Leukocyte Esterase (NEGATIVE) Urine WBC (Auto) (0-5) /HPF Urine RBC (Auto) (0-2) /HPF U Epithel Cells (Auto) (FEW) /HPF Urine Bacteria (Auto) (NEGATIVE) /HPF Calcium Oxalate Crystal (NEGATIVE) /HPF Urine Mucus (Auto) (NEGATIVE) /HPF Urine Culture Reflexed (NO) Urine Glucose (NEGATIVE) mg/dL Urine HCG, Qual (Negative) - Progress Progress: improved, pain not gone completely, re-examined Progress Note: She is given symptomatic treatment for pain. Has normal white count, grossly unremarkable chemistries. CT ruled out biliary leak or any other acute intra- abdominal findings. Patient has no signs of peritonitis on repeat evaluation. She is advised to continue with pain medicine which she has at home and outpatient follow-up with general surgery. Counseled pt/family regarding: lab results, diagnosis, need for follow-up, rad results - Departure Departure Disposition: Home Clinical Impression: Postoperative upper abdominal pain Condition: Stable Critical Care Time: No Referrals: RIANNA BUI [Primary Care Provider] - Follow Up with PCP/3 days MEENAKSHI SAMANIEGO [COURTESY STAFF] - (2 days for re evaluation) Instructions: Acute Abdomen (Belly Pain), Adult (DC) Additional Instructions: Take pain medications which you have at home as needed. Follow-up with your general surgeon for reevaluation early next week. Return to ER for worsening pain/nausea or if develop fever chills etc.
[2020-04-02 18:19] LABS: AMYLASE 59 U/L (30-110)
[2020-04-02 18:46] VITALS: BP 108/76; PULSE 68
--- NOTE | 2020-04-02 20:40 | XRAY ---
Indication: Pain dominant nausea, and vomiting. Status post cholecystectomy 5 days ago. Multiple contiguous axial images obtained through the abdomen and pelvis using 80 cc of Isovue 370 contrast. Comparison: February 01, 2020. Lung bases demonstrates new tiny bibasilar effusions, right greater than left. Incidental right middle lobe and right hilar calcified granulomas not previously imaged. Heart is not enlarged. Again previous gastric bypass surgery and hysterectomy. Noncontrasted stomach and bowel loops appear nonobstructed. Normal appendix. There remains mild diffuse scattered colonic fecal debris, less than before. Stable minimal sigmoid diverticulosis and 14 cm splenomegaly. Interval cholecystectomy. No free fluid/air. Remaining liver, pancreas, spleen, adrenal glands, kidneys, ureters, bladder, and aorta appear unremarkable. Osseous structures intact again with L4-S1 degenerative disc disease. Impression: 1. Status post cholecystectomy without complications. 2. Again diffuse fecal debris without obstruction, sigmoid diverticulosis, and splenomegaly. 3. New tiny bibasilar effusions. 4. Remaining CT abdomen/pelvis with contrast exam is negative. Comment: Preliminary interpretation was made by [facility]. No critical discrepancy.
[2020-04-03 10:18] VITALS: O2SAT 98
== END 2020-04-02 18:55 | disposition home or self-care (01) ==
LOC: ED 15:34
DX: G89.18 Other acute postprocedural pain (principal); R10.11 Right upper quadrant pain; R10.13 Epigastric pain; Z98.84 Bariatric surgery status; Z79.899 Other long term (current) drug therapy; R11.0 Nausea
CPT/HCPCS: 36000; 36415; 74177; 80053; 81001; 82150; 83690; 84703; 85025; 87077; 87086; 87186; 96374; 96375; 99284; J2270; J2405

== ENCOUNTER 2020-04-20 14:01 | Day surgery (SDC) | payer OTHER ==
[2020-04-20] MEDS ORDERED: Xylocaine 1% Vial 30 ML PF IJ ONE (14:02)
[2020-04-20] MEDS ORDERED: Sodium Chloride 0.9(Preservative Free) 10 ML IJ ONE (14:02)
[2020-04-20] MEDS ORDERED: Decadron 4 MG INJ IV ONE (14:02)
[2020-04-20] MEDS ORDERED: MORPHINE SULFATE 10 MG/ML ONE (16:33)
[2020-04-20] MEDS ORDERED: TORAdol 30 mg Injection ONE (16:34)
--- NOTE | 2020-04-20 16:45 | XRAY ---
30 seconds fluoroscopy time in surgery for cervical BREE.
--- NOTE | 2020-04-20 16:49 | XRAY ---
Indication: Cervical BREE. Intraoperative fluoroscopy was provided for 30 seconds. 2 digital spot images submitted for interpretation demonstrates midline posterior needle tip projecting posterior to the C7-T1 interspace. Small amount of contrast injected for needle tip placement. Correlate with intraoperative findings/report.
[2020-04-20] MEDS ORDERED: Lactated Ringers 1,000 ML IV ONE (16:52)
== END 2020-04-20 16:45 | disposition home or self-care (01) ==
LOC: SDC-PAIN 14:01
PROVIDERS: ATTEND Psychiatry & Neurology Pain Medicine
DX: M54.12 Radiculopathy, cervical region (principal); K21.9 Gastro-esophageal reflux disease without esophagitis; E06.3 Autoimmune thyroiditis; G62.9 Polyneuropathy, unspecified; G70.2 Congenital and developmental myasthenia; J45.909 Unspecified asthma, uncomplicated; Z79.899 Other long term (current) drug therapy
CPT/HCPCS: 62321; 72040; 77003; J1100; J1885; J2001; J2270; Q9966

== ENCOUNTER 2020-05-11 10:44 | Day surgery (SDC) | payer OTHER ==
[2020-05-11] MEDS ORDERED: Decadron 4 MG INJ IV ONE (10:45)
[2020-05-11] MEDS ORDERED: LIDOCAINE HCL 2% 100 MG/5 ML IJ ONE (10:45)
[2020-05-11] MEDS ORDERED: Ketamine HCl 50 MG/ML ONE (13:05)
[2020-05-11] MEDS ORDERED: DIPRIVAN 200 MG/20 ML IV ONE (13:05)
--- NOTE | 2020-05-11 14:05 | XRAY ---
Indication: Right C2-C4 MBB. Intraoperative fluoroscopy was provided for 17 seconds. 2 digital spot images submitted for interpretation demonstrates posterior needle tips projecting over the expected right C2-C4 nerve roots. Correlate with intraoperative findings/report.
--- NOTE | 2020-05-11 14:09 | XRAY ---
17 seconds fluoroscopy time in surgery for right C2-C4 MBB.
[2020-05-11] MEDS ORDERED: Lactated Ringers 1,000 ML IV ONE (15:43)
== END 2020-05-11 13:33 | disposition home or self-care (01) ==
LOC: SDC-PAIN 10:44
PROVIDERS: ATTEND Psychiatry & Neurology Pain Medicine
DX: M47.812 Spondylosis without myelopathy or radiculopathy, cervical region (principal); E06.3 Autoimmune thyroiditis; K21.9 Gastro-esophageal reflux disease without esophagitis; G62.9 Polyneuropathy, unspecified; G70.2 Congenital and developmental myasthenia; J45.909 Unspecified asthma, uncomplicated; Z79.899 Other long term (current) drug therapy
CPT/HCPCS: 36415; 64490; 64491; 72020; 77002; 80053; 82306; 82525; 82607; 82728; 82746; 83540; 83921; 83970; 84134; 84425; 84590; 84630; 85025; J1100; J2704

== ENCOUNTER 2020-07-06 10:07 | Day surgery (SDC) | payer OTHER ==
[2020-07-06] MEDS ORDERED: LIDOCAINE HCL 2% 100 MG/5 ML IJ ONE (10:08)
[2020-07-06] MEDS ORDERED: Decadron 4 MG INJ IV ONE (10:08)
[2020-07-06] MEDS ORDERED: Ketamine HCl 50 MG/ML ONE (12:18)
[2020-07-06] MEDS ORDERED: DIPRIVAN 200 MG/20 ML IV ONE (12:18)
--- NOTE | 2020-07-06 13:57 | XRAY ---
27 seconds fluoroscopy time in surgery for left C2-C4 MBB.
--- NOTE | 2020-07-06 14:07 | XRAY ---
Indication: Left C2-C4 MBB. Intraoperative fluoroscopy was provided for 27 seconds. 2 digital spot images submitted for interpretation demonstrates posterior needle tips projecting over the expected left C2-C4 nerve roots. Correlate with intraoperative findings/report.
[2020-07-06] MEDS ORDERED: Lactated Ringers 1,000 ML IV ONE (15:28)
== END 2020-07-06 13:08 | disposition home or self-care (01) ==
LOC: SDC-PAIN 10:07
PROVIDERS: ATTEND Psychiatry & Neurology Pain Medicine
DX: M47.812 Spondylosis without myelopathy or radiculopathy, cervical region (principal); K21.9 Gastro-esophageal reflux disease without esophagitis; E06.3 Autoimmune thyroiditis; G70.2 Congenital and developmental myasthenia; J45.909 Unspecified asthma, uncomplicated; G62.9 Polyneuropathy, unspecified; Z79.899 Other long term (current) drug therapy
CPT/HCPCS: 72020; 77002; J1100; J2704

== ENCOUNTER 2020-07-27 10:41 | Day surgery (SDC) | payer OTHER ==
[2020-07-27] MEDS ORDERED: BUPIVACAINE 0.5% VIAL IJ ONE (10:42)
[2020-07-27] MEDS ORDERED: Depo-Medrol 40 MG/ML IM ONE (10:42)
[2020-07-27] MEDS ORDERED: DIPRIVAN 200 MG/20 ML IV ONE (13:08)
--- NOTE | 2020-07-27 14:21 | XRAY ---
Indication: Left knee injection. Intraoperative fluoroscopy was provided for 7 seconds. 2 digital spot images submitted for interpretation demonstrates needle tip projecting over the left femur intercondylar notch. Small amount of contrast injected for needle tip placement. Correlate with intraoperative findings/report.
--- NOTE | 2020-07-27 14:21 | XRAY ---
7 seconds fluoroscopy time in surgery for intra-articular injection of the left knee.
--- NOTE | 2020-07-27 14:21 | XRAY ---
Indication: Right knee injection. Intraoperative fluoroscopy was provided for 9 seconds. 2 digital spot images submitted for interpretation demonstrates needle tip projecting over the right femur intercondylar notch. Small amount of contrast injected for needle tip placement. Correlate with intraoperative findings/report.
--- NOTE | 2020-07-27 14:21 | XRAY ---
9 seconds fluoroscopy time in surgery for intra-articular injection of the right knee.
[2020-07-27] MEDS ORDERED: Lactated Ringers 1,000 ML IV ONE (14:38)
== END 2020-07-27 13:50 | disposition home or self-care (01) ==
LOC: SDC-PAIN 10:41
PROVIDERS: ATTEND Psychiatry & Neurology Pain Medicine
DX: M17.0 Bilateral primary osteoarthritis of knee (principal); E06.3 Autoimmune thyroiditis; K21.9 Gastro-esophageal reflux disease without esophagitis; G62.9 Polyneuropathy, unspecified; G70.2 Congenital and developmental myasthenia; J45.909 Unspecified asthma, uncomplicated; Z79.899 Other long term (current) drug therapy
CPT/HCPCS: 20610; 73560; 77002; 77003; J1030; J2704; Q9966

== ENCOUNTER 2020-08-10 10:03 | Day surgery (SDC) | payer OTHER ==
[2020-08-10] MEDS ORDERED: BUPIVACAINE 0.5% VIAL IJ ONE (10:04)
[2020-08-10] MEDS ORDERED: Decadron 4 MG INJ IV ONE (10:04)
[2020-08-10] MEDS ORDERED: Lactated Ringers 1,000 ML IV ONE (11:02)
[2020-08-10] MEDS ORDERED: DIPRIVAN 200 MG/20 ML IV ONE (12:38)
[2020-08-10] MEDS ORDERED: Ketamine HCl 50 MG/ML ONE (12:39)
--- NOTE | 2020-08-10 13:59 | XRAY ---
Indication: Right C2-C4 MBB. Intraoperative fluoroscopy provided for 31 seconds. 2 digital spot images submitted for interpretation demonstrates posterior needle tips projecting over the expected right C2-C4 nerve roots. Correlate with intraoperative findings/report.
--- NOTE | 2020-08-10 14:08 | XRAY ---
31 seconds of fluoroscopy was used in surgery for a right C2-C3 and C3-C4 MBB.
== END 2020-08-10 13:07 | disposition home or self-care (01) ==
LOC: SDC-PAIN 10:03
PROVIDERS: ATTEND Psychiatry & Neurology Pain Medicine
DX: M47.812 Spondylosis without myelopathy or radiculopathy, cervical region (principal); K21.9 Gastro-esophageal reflux disease without esophagitis; E06.3 Autoimmune thyroiditis; G62.9 Polyneuropathy, unspecified; G70.2 Congenital and developmental myasthenia; J45.909 Unspecified asthma, uncomplicated; Z79.899 Other long term (current) drug therapy
CPT/HCPCS: 64490; 64491; 72020; 77002; J1100; J2704

== ENCOUNTER 2020-09-21 11:02 | Day surgery (SDC) | payer OTHER ==
[2020-09-21] MEDS ORDERED: BUPIVACAINE 0.5% VIAL IJ ONE (11:03)
[2020-09-21] MEDS ORDERED: Decadron 4 MG INJ IV ONE (11:03)
[2020-09-21] MEDS ORDERED: DIPRIVAN 200 MG/20 ML IV ONE (13:02)
--- NOTE | 2020-09-21 13:35 | XRAY ---
Indication: Left C2-C4 MBB. Intraoperative fluoroscopy provided for 26 seconds. 2 digital spot image submitted for interpretation demonstrates posterior needle tips projecting over the left C2-C4 nerve roots. Correlate with intraoperative findings/report.
--- NOTE | 2020-09-21 14:01 | XRAY ---
26 seconds fluoroscopy time in surgery for left C2-C4 MBB.
[2020-09-21] MEDS ORDERED: Lactated Ringers 1,000 ML IV ONE (14:37)
== END 2020-09-21 13:31 | disposition home or self-care (01) ==
LOC: SDC-PAIN 11:02
PROVIDERS: ATTEND Psychiatry & Neurology Pain Medicine
DX: M47.812 Spondylosis without myelopathy or radiculopathy, cervical region (principal); K21.9 Gastro-esophageal reflux disease without esophagitis; E06.3 Autoimmune thyroiditis; G62.9 Polyneuropathy, unspecified; G70.2 Congenital and developmental myasthenia; J45.909 Unspecified asthma, uncomplicated; Z79.899 Other long term (current) drug therapy
CPT/HCPCS: 64490; 64491; 72020; 77002; J1100; J2704

== ENCOUNTER 2020-11-09 13:59 | Day surgery (SDC) | payer OTHER ==
[2020-11-09] MEDS ORDERED: Lactated Ringers 1,000 ML IV ONE ×2 (14:22→15:30)
[2020-11-09] MEDS ORDERED: DIPRIVAN 200 MG/20 ML IV ONE ×2 (15:56→16:10)
--- NOTE | 2020-11-09 18:29 | XRAY ---
Indication: Right C2-C4 RFA. Intraoperative fluoroscopy provided for 1 minute 2 seconds. 7 digital spot images submitted for interpretation demonstrates posterior needle tips projecting over the expected right C2-C4 nerve roots. Correlate with intraoperative findings/report.
--- NOTE | 2020-11-10 09:12 | XRAY ---
1 minute and 2 seconds fluoroscopy time in surgery for right C2-C4 RFA.
== END 2020-11-09 16:47 | disposition home or self-care (01) ==
LOC: SDC-PAIN 13:59
PROVIDERS: ATTEND Psychiatry & Neurology Pain Medicine
DX: M47.812 Spondylosis without myelopathy or radiculopathy, cervical region (principal); E06.3 Autoimmune thyroiditis; K21.9 Gastro-esophageal reflux disease without esophagitis; G62.9 Polyneuropathy, unspecified; G70.2 Congenital and developmental myasthenia; J45.909 Unspecified asthma, uncomplicated; Z79.899 Other long term (current) drug therapy
CPT/HCPCS: 64633; 64634; 72040; 77002; J2704

== ENCOUNTER 2020-11-16 10:41 | Day surgery (SDC) | payer OTHER ==
[2020-11-16] MEDS ORDERED: Xylocaine 1% Vial 30 ML PF IJ ONE (10:42)
[2020-11-16] MEDS ORDERED: Decadron 4 MG INJ IV ONE (10:42)
[2020-11-16] MEDS ORDERED: BUPIVACAINE 0.5% VIAL IJ ONE (10:42)
[2020-11-16] MEDS ORDERED: DIPRIVAN 200 MG/20 ML IV ONE (12:12)
--- NOTE | 2020-11-16 13:06 | XRAY ---
Indication: Left C2-C4 RFA. Intraoperative fluoroscopy provided for 32 seconds. 2 digital spot images submitted for interpretation demonstrates posterior needle tips projecting over the expected left C2-C4 nerve roots. Correlate with intraoperative findings/report.
--- NOTE | 2020-11-16 13:41 | XRAY ---
32 seconds fluoroscopy time in surgery for left C2-C4 RFA.
[2020-11-16] MEDS ORDERED: Lactated Ringers 1,000 ML IV ONE (16:19)
== END 2020-11-16 12:54 | disposition home or self-care (01) ==
LOC: SDC-PAIN 10:41
PROVIDERS: ATTEND Psychiatry & Neurology Pain Medicine
DX: M47.812 Spondylosis without myelopathy or radiculopathy, cervical region (principal); K21.9 Gastro-esophageal reflux disease without esophagitis; E06.3 Autoimmune thyroiditis; G62.9 Polyneuropathy, unspecified; J45.909 Unspecified asthma, uncomplicated; Z79.899 Other long term (current) drug therapy
CPT/HCPCS: 64633; 64634; 72040; 77002; J1100; J2001; J2704

== ENCOUNTER 2021-01-11 17:12 | Observation (INO) | payer MEDICAID ==
[2021-01-11 19:17] LABS: BASOPHIL % 0.4 % (0.0-0.4); Basophil (Absolute #) 0.02 (0-0.4); Eosinophil % 4.9 % (0.00-5.0); Eosinophil (Absolute #) 0.26 (0-0.5); Hematocrit 34.8 % (35-47); Hemoglobin 11.3 gm/dl (12.0-16.0); Lymphocyte (Absolute #) 1.45 (1.0-4.6); Lymphocytes % 27.6 % (24.0-44.0); Mean Cell Volume 94.3 fl (78-100); Mean Corpuscular Hemoglobin 30.6 pg (26-32); Mean Corpuscular Hgb Concent. 32.5 g/dl (32-36); Mean Platelet Volume 10.1 fl (7.5-11.0); Monocyte (Absolute #) 0.33 (0.0-1.3); Monocytes % 6.3 % (0.0-12.0); Neutrophil % 60.8 % (36.0-66.0); Platelet Count 203 K/mm3 (150-450); Red Blood Count 3.69 M/mm3 (4.1-5.4); Red Cell Distribution Width 12.8 % (11.5-14.0); White Blood Count 5.3 K/mm3 (4.0-10.5)
[2021-01-11 19:32] LABS: ALBUMIN 3.4 g/dL (3.5-5.0); ALKALINE PHOSPHATASE 56 U/L (38-126); ANION GAP 13.8 MEQ/L (5-15); BLOOD UREA NITROGEN 15 mg/dL (7-17); CHLORIDE 107 mmol/L (98-107); Calcium 8.2 mg/dL (8.4-10.2); Carbon Dioxide 22 mmol/L (22-30); Creatinine 1 0.62 mg/dL (0.52-1.04); EST GLOMERULAR FILTRATION RATE > 60.0 ML/MIN; Glucose 81 mg/dL (74-106); Potassium 4.3 mmol/L (3.5-5.1); SGOT/AST 28 U/L (14-36); SGPT/ALT 13 U/L (0-35); SODIUM 138 mmol/L (137-145); Total Protein 5.8 g/dL (6.3-8.2)
[2021-01-11 19:56] LABS: Appearance SLIGHTLY CLOUDY (CLEAR); Bilirubin NEGATIVE (NEGATIVE); Blood NEGATIVE Ery/ul (0-5); Epithelial Cells RARE /HPF (FEW); Glucose NEGATIVE (NEGATIVE); Ketones NEGATIVE (NEGATIVE); Leukocyte Esterase NEGATIVE (NEGATIVE); Mucus SLIGHT /HPF (NEGATIVE); Nitrite NEGATIVE (NEGATIVE); Protein,Urine Dip NEGATIVE (Negative); Specific Gravity 1.021 (1.005-1.025); Urobilinogen 4 mg/dL (0-1); WBC 0-2 /HPF (0-5)
--- NOTE | 2021-01-11 20:10 | ERPHSYRPT ---
- History of Present Illness Time Seen by Provider: 01/11/21 17:30 Source: patient Exam Limitations: no limitations Patient Subjective Stated Complaint: pt here for vomiting about 6 times today. she aslo feels like food is getting stuck, she has gastric bypass surg october 2018. she is to get testes done next week Triage Nursing Assessment: pt alert, resp easy, skin w/d/p.abd soft Physician History: Patient is a 40-year-old female presents to our ED with vomiting x6 times. She also has chest discomfort. Patient states over the past week she has had difficulty keeping her food down. Patient states she has a history of esophageal strictures. Patient had a meal today and thinks that she may have gotten food stuck in her esophagus. Patient tried a dose of Zofran and states that the medication "came back up". Patient states that she has had her esophagus dilated in the past. Additionally patient had a gastric bypass performed in 2018. Patient denies chest pain. No diarrhea. No trauma. No fever. No rash. Symptoms are mild to moderate in intensity. No specific worsening improving factors. Patient gastric bypass surgeon is Dr. Camejo from [facility]. Timing/Duration: week(s) Severity: moderate (Weeks) Modifying Factors: Improves With: nothing Associated Symptoms: vomiting, No abdominal pain, No diaphoresis, No chest pain, No fever, No malaise, No weakness Allergies/Adverse Reactions: NSAIDS (Non-Steroidal Anti-Inflamma Adverse Reaction (Unknown, Verified 01/11/21 17:26) No NSAIDS due to bariatric surgery. Home Medications: Cyclobenzaprine HCl 10 mg [Cyclobenzaprine 10 MG] 10 mg PO TIDPRN 06/30/15 [History] Omeprazole [Prilosec] 20 mg PO DAILY 06/30/15 [History] Albuterol Common Canister [Ventolin Common Canister] 2 puff IH Q4H PRN 12/20/18 [History] Fluoxetine HCl 20 mg [Prozac 20 MG] 1 cap PO HS 12/20/18 [History] Fluticasone/Vilanterol [Breo Ellipta 100-25 Mcg INH] 1 each IH DAILY 12/20/18 [History] Pedi Multivit No.25/Folic Acid [Flintstones Multivit Chew Tab] 2 tab PO DAILY 12/20/18 [History] Gabapentin 800 mg PO TID 01/29/20 [History] Montelukast Sodium [Singulair] 4 mg PO DAILY 01/29/20 [History] Tiotropium [place] [Spiriva Respimat] 4 gm IH DAILY 01/29/20 [History] Azelastine Nasal [Astelin Nasal] 1 spray INTRANASAL UD 03/25/20 [History] Diclofenac Sodium Gel [Voltaren GEL] 1 applic TOP UD PRN 03/25/20 [History] Estradiol 1 mg [Estrace 1 mg] 1 mg PO DAILY 03/25/20 [History] Ondansetron ODT 4 MG [Zofran Odt 4 mg] 4 mg PO Q4-6HPRN PRN 03/25/20 [History] Oxybutynin Chloride [Oxybutynin Chloride ER] 10 mg PO DAILY 03/25/20 [History] Pyridostigmine [place] [Mestinon] 60 mg PO TID 03/25/20 [History] Topiramate [Topamax] 50 mg PO BID 03/25/20 [History] Trazodone HCl 150 mg PO DAILY 03/25/20 [History] Isomethept/Acetaminop/Dichlphn [Midrin Capsule] 1 ea DAILY 01/11/21 [History] Pramipexole Di-HCl 0.5 mg [Mirapex 0.5 MG Tablet] 1 ea DAILY 01/11/21 [Hi story] Hx Tetanus, Diphtheria Vaccination/Date Given: (unk) Hx Influenza Vaccination/Date Given: No Hx Pneumococcal Vaccination/Date Given: No Immunizations Up to Date: Yes Travel Risk - International Travel Have you traveled outside of the country in past 3 weeks: No - Coronavirus Screening Are you exhibiting any of the following symptoms?: No Close contact with a COVID-19 positive Pt in past 14-21 Days: No - Vaccine Status Have you recieved a Covid-19 vaccination: No - Review of Systems Constitutional: No Symptoms, No Fever, No Chills Eyes: No Symptoms Ears, Nose, & Throat: No Symptoms Respiratory: No Symptoms, No Cough, No Dyspnea Cardiac: No Symptoms, No Chest Pain, No Edema, No Syncope Abdominal/Gastrointestinal: No Symptoms, No Abdominal Pain, No Nausea, No Vomiting, No Diarrhea Genitourinary Symptoms: No Symptoms, No Dysuria Musculoskeletal: No Symptoms, No Back Pain, No Neck Pain Skin: No Symptoms, No Rash Neurological: No Symptoms, No Dizziness, No Focal Weakness, No Sensory Changes Psychological: No Symptoms Endocrine: No Symptoms Hematologic/Lymphatic: No Symptoms Immunological/Allergic: No Symptoms All Other Systems: Reviewed and Negative - Past Medical History Pertinent Past Medical History: Yes Neurological History: Migraines, Peripheral Neuropathy, Other ENT History: No Pertinent History Cardiac History: Other Respiratory History: Asthma Endocrine Medical History: Other Musculoskeletal History: Other GI Medical History: GERD, Gallbladder Disease History: No Pertinent History Psycho-Social History: No Pertinent History Female Reproductive Disorders: Menstrual Problems Other Medical History: Congenital Myathenic Syndrome , Hashimotos, Bariatric surgery, enlarged spleen, Peripherial neuropathy. - Past Surgical History Past Surgical History: Yes Neuro Surgical History: No Pertinent History Cardiac: Cardiac Catheterization Respiratory: No Pertinent History Gastrointestinal: Other Genitourinary: No Pertinent History Musculoskeletal: Orthopedic Surgery Female Surgical History: Hysterectomy, Dilation & Curettage, Other Other Surgical History: uterine thermal ablation, back surgery 2011 ,L knee scope D & C , several cyst. removed. thyroid biopsy. bariatric surgery 10/23/18. ear tubes - Social History Smoking Status: Never smoker Exposure to second hand smoke: No Drug Use: none Patient Lives Alone: No - Female History Hx Last Menstrual Period: hyster Hx Now: No - Nursing Vital Signs Nursing Vital Signs: Initial Vital Signs O2 Sat by Pulse Oximetry 100 01/11/21 17:12 Pain Scale Pain Intensity 2 - Physical Exam General Appearance: no apparent distress, alert Eye Exam: PERRL/EOMI, eyes nml inspection Ears, Nose, Throat Exam: normal ENT inspection, TMs normal, pharynx normal, moist mucous membranes Neck Exam: normal inspection, non-tender, supple, full range of motion Respiratory Exam: normal breath sounds, lungs clear, No respiratory distress Cardiovascular Exam: regular rate/rhythm, normal heart sounds, normal peripheral pulses Gastrointestinal/Abdomen Exam: soft, normal bowel sounds, pulsatile mass, No tenderness, No mass Back Exam: normal inspection, normal range of motion, No CVA tenderness, No v ertebral tenderness Extremity Exam: normal inspection, normal range of motion, pelvis stable Neurologic Exam: alert, oriented x 3, cooperative, normal mood/affect, nml cerebellar function, nml station & gait, sensation nml, No motor deficits Skin Exam: normal color, warm, dry, No rash Lymphatic Exam: No adenopathy SpO2 Interpretation: normal SpO2: 97 O2 Delivery: Room Air - Course Nursing assessment & vital signs reviewed: Yes EKG Interpreted by Me: RATE (60), Sinus Rhythm, NORMAL AXIS, NORMAL INTERVALS - CT Exams Chest CT Interpretation: Tele-radiologist Report (To 10/29/2017, interval gastric bypass surgery with new small hiatal hernia. Otherwise continued negative CT chest including esophagus.) Ordered Tests: Active Orders 24 hr Category Date Time Status Environmental Planner STAT Care 01/11/21 18:23 Active EKG-ER Only STAT Care 01/11/21 18:22 Active IV Insertion STAT Care 01/11/21 18:22 Active Pulse Oximetry (ED) STAT Care 01/11/21 18:22 Active CHEST WITHOUT CONTRAST [CT] Stat Exams 01/11/21 19:28 Taken CBC W DIFF Stat Lab 01/11/21 19:14 Completed CMP Stat Lab 01/11/21 19:14 Completed TROPONIN Q3H Lab 01/11/21 19:14 Completed TROPONIN Q3H Lab 01/11/21 21:30 Completed TROPONIN Q3H Lab 01/12/21 00:30 Ordered TROPONIN Q3H Lab 01/12/21 03:30 Ordered TROPONIN Q3H Lab 01/12/21 06:30 Ordered UA W/RFX UR CULTURE Stat Lab 01/11/21 19:40 Completed Transfer Order Routine Transfer 01/11/21 Ordered Medication Summary Generic Name Dose Route Start Last Admin Trade Name Freq PRN Reason Stop Dose Admin Sodium Chloride 1,000 mls @ 100 mls/hr 01/11/21 22:45 01/11/21 22:46 Sodium Chloride 0.9% 1000 Ml IV 02/10/21 22:44 100 mls/hr .Q10H RAHUL Administration Zinc Acetate/Diphenhydramine 0.5 gm 01/11/21 20:59 01/11/21 21:10 Benadryl Itch Stopping Crm TP 02/10/21 20:58 0.5 gm QID PRN PRN Administration ITCHING Discontinued Medications Generic Name Dose Route Start Last Admin Trade Name Freq PRN Reason Stop Dose Admin Sodium Chloride Confirm 01/11/21 22:43 Sodium Chloride 0.9% 1000 Ml Administered 01/11/21 22:44 Dose 1,000 mls @ .ROUTE .[facility] Lab/Rad Data: Laboratory Result Diagrams 01/11/21 19:14 01/11/21 19:14 Laboratory Results 01/11/21 01/11/21 01/11/21 Range/Units 21:30 21:10 19:40 WBC (4.0-10.5) K/mm3 RBC (4.1-5.4) M/mm3 Hgb (12.0-16.0) gm/dl Hct (35-47) % MCV (78-100) fl MCH (26-32) pg MCHC (32-36) g/dl RDW (11.5-14.0) % Plt Count (150-450) K/mm3 MPV (7.5-11.0) fl Gran % (36.0-66.0) % Eos # (Auto) (0-0.5) Absolute Lymphs (auto) (1.0-4.6) Absolute Monos (auto) (0.0-1.3) Lymphocytes % (24.0-44.0) % Monocytes % (0.0-12.0) % Eosinophils % (0.00-5.0) % Basophils % (0.0-0.4) % Absolute Granulocytes (1.4-6.9) Basophils # (0-0.4) Sodium (137-145) mmol/L Potassium (3.5-5.1) mmol/L Chloride (98-107) mmol/L Carbon Dioxide (22-30) mmol/L Anion Gap (5-15) MEQ/L BUN (7-17) mg/dL Creatinine (0.52-1.04) mg/dL Estimated GFR ML/MIN Glucose (74-106) mg/dL Calcium (8.4-10.2) mg/dL Total Bilirubin (0.2-1.3) mg/dL AST (14-36) U/L ALT (0-35) U/L Alkaline Phosphatase (38-126) U/L Troponin I < 0.012 (0.000-0.034) ng/mL Serum Total Protein (6.3-8.2) g/dL Albumin (3.5-5.0) g/dL Urine Color YELLOW (YELLOW) Urine Appearance SLIGHTLY CLOUDY (CLEAR) Urine pH 6.0 (5-6) Ur Specific [place] 1.021 (1.005-1.025) Urine Protein NEGATIVE (Negative) Urine Ketones NEGATIVE (NEGATIVE) Urine Blood NEGATIVE (0-5) Charly/ul Urine Nitrite NEGATIVE (NEGATIVE) Urine Bilirubin NEGATIVE (NEGATIVE) Urine Urobilinogen 4 (0-1) mg/dL Ur Leukocyte Esterase NEGATIVE (NEGATIVE) Urine WBC (Auto) 0-2 (0-5) /HPF Urine RBC (Auto) NONE (0-2) /HPF U Epithel Cells (Auto) RARE (FEW) /HPF Urine Bacteria (Auto) NONE (NEGATIVE) /HPF Urine Mucus (Auto) SLIGHT (NEGATIVE) /HPF Urine Culture Reflexed NO (NO) Urine Glucose NEGATIVE (NEGATIVE) mg/dL SARS-CoV-2 (PCR) NEGATIVE (NEGATIVE) 01/11/21 01/11/21 01/11/21 Range/Units 19:14 19:14 19:14 WBC 5.3 (4.0-10.5) K/mm3 RBC 3.69 L (4.1-5.4) M/mm3 Hgb 11.3 L (12.0-16.0) gm/dl Hct 34.8 L (35-47) % MCV 94.3 (78-100) fl MCH 30.6 (26-32) pg MCHC 32.5 (32-36) g/dl RDW 12.8 (11.5-14.0) % Plt Count 203 (150-450) K/mm3 MPV 10.1 (7.5-11.0) fl Gran % 60.8 (36.0-66.0) % Eos # (Auto) 0.26 (0-0.5) Absolute Lymphs (auto) 1.45 (1.0-4.6) Absolute Monos (auto) 0.33 (0.0-1.3) Lymphocytes % 27.6 (24.0-44.0) % Monocytes % 6.3 (0.0-12.0) % Eosinophils % 4.9 (0.00-5.0) % Basophils % 0.4 (0.0-0.4) % Absolute Granulocytes 3.20 (1.4-6.9) Basophils # 0.02 (0-0.4) Sodium 138 (137-145) mmol/L Potassium 4.3 (3.5-5.1) mmol/L Chloride 107 (98-107) mmol/L Carbon Dioxide 22 (22-30) mmol/L Anion Gap 13.8 (5-15) MEQ/L BUN 15 (7-17) mg/dL Creatinine 0.62 (0.52-1.04) mg/dL Estimated GFR > 60.0 ML/MIN Glucose 81 (74-106) mg/dL Calcium 8.2 L (8.4-10.2) mg/dL Total Bilirubin 0.40 (0.2-1.3) mg/dL AST 28 (14-36) U/L ALT 13 (0-35) U/L Alkaline Phosphatase 56 (38-126) U/L Troponin I < 0.012 (0.000-0.034) ng/mL Serum Total Protein 5.8 L (6.3-8.2) g/dL Albumin 3.4 L (3.5-5.0) g/dL Urine Color (YELLOW) Urine Appearance (CLEAR) Urine pH (5-6) Ur Specific [place] (1.005-1.025) Urine Protein (Negative) Urine Ketones (NEGATIVE) Urine Blood (0-5) Charly/ul Urine Nitrite (NEGATIVE) Urine Bilirubin (NEGATIVE) Urine Urobilinogen (0-1) mg/dL Ur Leukocyte Esterase (NEGATIVE) Urine WBC (Auto) (0-5) /HPF Urine RBC (Auto) (0-2) /HPF U Epithel Cells (Auto) (FEW) /HPF Urine Bacteria (Auto) (NEGATIVE) /HPF Urine Mucus (Auto) (NEGATIVE) /HPF Urine Culture Reflexed (NO) Urine Glucose (NEGATIVE) mg/dL SARS-CoV-2 (PCR) (NEGATIVE) - Progress Progress: improved Progress Note: This discussed with Dr. Clemente Who accepts admission to observation. She will contact Dr. Camejo in the morning regarding transfer for esophageal dilation. Plan of care discussed with patient. She agrees to admission at [facility] for further evaluation and treatment. 01/11/21 22:52 Patient is Covid negative. 01/11/21 22:[address] DrKyle: Puja Will see patient in: hospital (observation) Counseled pt/family regarding: lab results, diagnosis, rad results - Departure Departure Disposition: Home Clinical Impression: Hiatal hernia, Esophageal stricture, Nausea & vomiting Condition: Stable Critical Care Time: No Referrals: RIANNA CLEMENTE [Primary Care Provider] - Additional Instructions: Discharge/Care Plan JUANCARLOSSYDNI BLANCA was seen on 01/11/21 in the Emergency Room. The patient was counseled regarding Diagnosis,Lab results, Imaging studies, need for follow up and when to return to the Emergency Room. Prescriptions given: Discharge Note I have spoken with the patient and/or caregivers. I have explained the patient's condition, diagnosis and treatment plan based on the information available to me at this time. I have answered the patient's and/or caregiver's questions and addressed any concerns. The patient and/or caregivers have as good understanding of the patient's diagnosis, condition and treatment plan as can be expected at this point. The vital signs have been stable. The patient's condition is stable and appropriate for discharge from the emergency department. The patient will pursue further outpatient evaluation with the primary care physician or other designated or consulting physician as outlined in the discharge instructions. The patient and/or caregivers are agreeable to this plan of care and follow-up instructions have been explained in detail. The patient and/or caregivers have received these instruction. The patient/and or caregivers are aware that any significant change in condition or worsening of symptoms should prompt an immediate return to this or the closest emergency department or call 911.
[2021-01-11] MEDS ORDERED: Benadryl Itch Stopping Crm TP PRN (20:59)
[2021-01-11] MEDS ORDERED: Sodium Chloride 0.9% 1000 ML 1,000 ML ONE (22:43)
[2021-01-11] MEDS ORDERED: Sodium Chloride 0.9% 1000 ML 1,000 ML IV SCH (22:45)
[2021-01-11] MEDS: Sodium Chloride 0.9% 1000 ML 1,000 ML IV SCH (23:05)
[2021-01-11] MEDS: Zofran 4 MG/2 ML VIAL IV PRN (23:56)
[2021-01-11] MEDS: MORPHINE SULFATE 2 MG INJ IV PRN (23:56)
[2021-01-12] MEDS ORDERED: Prozac 20 MG PO SCH (00:30)
[2021-01-12] MEDS: Ativan 2 MG/1 ML VIAL IV PRN ×2 (00:44→03:54)
[2021-01-12 05:28] LABS: BASOPHIL % 0.2 % (0.0-0.4); Basophil (Absolute #) 0.01 (0-0.4); Eosinophil % 8.1 % (0.00-5.0); Eosinophil (Absolute #) 0.33 (0-0.5); Hematocrit 33.2 % (35-47); Hemoglobin 10.8 gm/dl (12.0-16.0); Lymphocyte (Absolute #) 1.52 (1.0-4.6); Lymphocytes % 37.3 % (24.0-44.0); Mean Cell Volume 94.6 fl (78-100); Mean Corpuscular Hemoglobin 30.8 pg (26-32); Mean Corpuscular Hgb Concent. 32.5 g/dl (32-36); Mean Platelet Volume 9.7 fl (7.5-11.0); Monocyte (Absolute #) 0.31 (0.0-1.3); Monocytes % 7.6 % (0.0-12.0); Neutrophil % 46.8 % (36.0-66.0); Platelet Count 178 K/mm3 (150-450); Red Blood Count 3.51 M/mm3 (4.1-5.4); Red Cell Distribution Width 12.8 % (11.5-14.0); White Blood Count 4.1 K/mm3 (4.0-10.5)
[2021-01-12 05:46] LABS: ALKALINE PHOSPHATASE 47 U/L (38-126); ANION GAP 11.7 MEQ/L (5-15); BLOOD UREA NITROGEN 12 mg/dL (7-17); CHLORIDE 107 mmol/L (98-107); Carbon Dioxide 24 mmol/L (22-30); Creatinine 1 0.68 mg/dL (0.52-1.04); EST GLOMERULAR FILTRATION RATE > 60.0 ML/MIN; Glucose 81 mg/dL (74-106); Potassium 3.5 mmol/L (3.5-5.1); SGOT/AST 20 U/L (14-36); SGPT/ALT 11 U/L (0-35); SODIUM 139 mmol/L (137-145); Total Protein 5.3 g/dL (6.3-8.2)
[2021-01-12] MEDS: Neurontin 400 MG PO SCH ×3 (06:19→15:50)
[2021-01-12] MEDS: TOPIRAMATE PO SCH ×2 (06:19→11:42)
[2021-01-12] MEDS: Sodium Chloride 0.9% 1000 ML 1,000 ML IV SCH ×2 (07:51→15:49)
[2021-01-12] MEDS: Zofran 4 MG/2 ML VIAL IV PRN ×2 (07:59→14:21)
[2021-01-12] MEDS: MORPHINE SULFATE 2 MG INJ IV PRN ×2 (07:59→14:20)
--- NOTE | 2021-01-12 08:56 | XRAY ---
Indication: Esophageal pain. Difficulty swallowing. Possible esophageal food bolus. Nausea and vomiting. Multiple contiguous axial images obtained through the chest without contrast. Comparison: October 29, 2017. Esophagus is normal in course and caliber with new small hiatal hernia with new gastric bypass surgery. No pneumomediastinum. Heart not enlarged. Aorta is normal in course and caliber. Stable small right hilar calcified nodes. No pathologic mediastinal lymphadenopathy. Lungs again demonstrates right perihilar calcified and noncalcified granulomas. No suspicious pulmonary mass, infiltrate, effusion, or pneumothorax. Bony thorax intact. Limited upper abdomen again demonstrates fatty liver. There has been interval cholecystectomy. Impression: 1. Interval gastric bypass surgery and cholecystectomy. New small hiatal hernia. 2. Again incidental fatty liver and old granulomatous disease. 3. Remaining CT chest without contrast exam is negative.
--- NOTE | 2021-01-12 09:20 | PCM.SSS ---
History of Present Illness - Chief Complaint Chief Complaint: esophageal stricture, dehydration History of Present Illness: is a 40 year old female who admitted last night with persistent vomiting and epigastric pain, she had a ct that showed hiatal hernia and evidence of small hiatal hernia. had gastric bypass at [facility] 2 years ago, hx esophageal dilation 10 years ago, she is unable to tolerate anything by mouth yesterday and vomiting 5-6 times. - Review of Systems Constitutional: No Fever, No Chills Ears, Nose, & Throat: No Symptoms Respiratory: No Cough, No Short Of Breath Cardiac: No Chest Pain, No Edema, No Syncope Abdominal/Gastrointestinal: Abdominal Pain, Nausea, Vomiting Genitourinary Symptoms: No Dysuria Skin: No Rash All Other Systems: Reviewed and Negative Medications & Allergies Home Medications: Home Medication List Cyclobenzaprine HCl 10 mg [Cyclobenzaprine 10 MG] 10 mg PO TIDPRN 06/30/15 [History Confirmed 01/11/21] Omeprazole [Prilosec] 20 mg PO DAILY 06/30/15 [History Confirmed 01/11/21] Albuterol Common Canister [Ventolin Common Canister] 2 puff IH Q4H PRN 12/20/18 [History Confirmed 01/11/21] Fluoxetine HCl 20 mg [Prozac 20 MG] 1 cap PO HS 12/20/18 [History Confirme d 01/11/21] Fluticasone/Vilanterol [Breo Ellipta 100-25 Mcg INH] 1 each IH DAILY 12/20/18 [History Confirmed 01/11/21] Pedi Multivit No.25/Folic Acid [Flintstones Multivit Chew Tab] 2 tab PO DAILY 12/20/18 [History Confirmed 01/11/21] Gabapentin 800 mg PO TID 01/29/20 [History Confirmed 01/11/21] Montelukast Sodium [Singulair] 4 mg PO DAILY 01/29/20 [History Confirmed 01/11/21] Tiotropium Ardenvoir [Spiriva Respimat] 4 gm IH DAILY 01/29/20 [History Confirmed 01/11/21] Azelastine Nasal [Astelin Nasal] 1 spray INTRANASAL UD 03/25/20 [History Confirmed 01/11/21] Diclofenac Sodium Gel [Voltaren GEL] 1 applic TOP UD PRN 03/25/20 [History Confirmed 01/11/21] Estradiol 1 mg [Estrace 1 mg] 1 mg PO DAILY 03/25/20 [History Confirmed 01/11/21] Ondansetron ODT 4 MG [Zofran Odt 4 mg] 4 mg PO Q4-6HPRN PRN 03/25/20 [History Confirmed 01/11/21] Oxybutynin Chloride [Oxybutynin Chloride ER] 10 mg PO DAILY 03/25/20 [History Confirmed 01/11/21] Pyridostigmine Ardenvoir [Mestinon] 60 mg PO TID 03/25/20 [History Confirmed 01/11/21] Topiramate [Topamax] 50 mg PO BID 03/25/20 [History Confirmed 01/11/21] Trazodone HCl 150 mg PO HS 03/25/20 [History Confirmed 01/12/21] Isomethept/Acetaminop/Dichlphn [Midrin Capsule] 10 mg PO TID 01/11/21 [History Confirmed 01/12/21] Pramipexole Di-HCl 0.5 mg [Mirapex 0.5 MG Tablet] 1 ea DAILY 01/11/21 [History Confirmed 01/11/21] Hydrocodone/APAP 5-325 Tab^^^ [Moultrie 5-325 Tablet^^^] 10 - 325 mg PO TID MDD 6 01/12/21 [History Confirmed 01/12/21] Allergies/Adverse Reactions: Allergies Allergy/AdvReac Type Severity Reaction Status Date / Time NSAIDS (Non-Steroidal AdvReac Unknown Verified 01/11/21 17:26 Anti-Inflamma - Past Medical History Past Medical History: Yes Neurological History: Migraines, Peripheral Neuropathy, Other ENT History: Other Cardiac History: Other Respiratory History: Asthma Endocrine Medical History: Other Musculoskelatal History: Other GI Medical History: GERD, Gallbladder Disease History: No Pertinent History Pyscho-Social History: No Pertinent History Reproductive Disorders: Menstrual Problems Comment: Congenital Myathenic Syndrome , Hashimotos, Bariatric surgery, enlarged spleen, Peripherial neuropathy. Throat strictures. postural tachycardia. cms, arthritis, back surgery in 2011 for herniated disc. Bone spurs, arthritis in neck - Female History Hx Last Menstrual Period: hyster Are you now?: No - Past Surgical History Past Surgical History: Yes Neuro Surgical History: No Pertinent History Cardiac History: Cardiac Catheterization Respiratory Surgery: No Pertinent History GI Surgical History: Other Genitourinary Surgical Hx: No Pertinent History Musculskeletal Surgical Hx: Orthopedic Surgery Female Surgical History: Hysterectomy, Dilation & Curettage, Other Other Surgical History: uterine thermal ablation, back surgery 2011 ,L knee scope D & C , several cyst. removed. thyroid biopsy. bariatric surgery 10/23/18. ear tubes - Social History Smoking Status: Never smoker Exposure to second hand smoke: No Alcohol: None Drug Use: none - Physical Exam Vital Signs: Vital Signs - 24 hr Temp Pulse Resp BP BP Pulse Ox 01/12/21 07:29 98.8 F 51 L 16 100/59 98 01/12/21 04:00 97.9 F 53 L 16 104/59 97 01/11/21 23:16 99.9 F 70 18 117/63 99 01/11/21 22:55 97 01/11/21 22:00 76 16 112/78 97 01/11/21 21:00 71 18 111/72 99 01/11/21 20:09 81 95/68 96 01/11/21 19:40 97 01/11/21 19:00 88 18 110/75 98 01/11/21 17:20 97.9 F 89 18 107/60 95 01/11/21 17:12 100 General Appearance: no apparent distress, alert Respiratory Exam: normal breath sounds, lungs clear, No respiratory distress Cardiovascular Exam: regular rate/rhythm, normal heart sounds, normal peripheral pulses Gastrointestinal/Abdomen Exam: soft, normal bowel sounds Extremity Exam: normal inspection, normal range of motion, pelvis stable Results - Labs Lab/Micro Results: Lab Results-Last 24 Hours 01/11/21 01/11/21 01/11/21 Range/Units 19:14 19:14 19:14 WBC 5.3 (4.0-10.5) K/mm3 RBC 3.69 L (4.1-5.4) M/mm3 Hgb 11.3 L (12.0-16.0) gm/dl Hct 34.8 L (35-47) % MCV 94.3 (78-100) fl MCH 30.6 (26-32) pg MCHC 32.5 (32-36) g/dl RDW 12.8 (11.5-14.0) % Plt Count 203 (150-450) K/mm3 MPV 10.1 (7.5-11.0) fl Gran % 60.8 (36.0-66.0) % Eos # (Auto) 0.26 (0-0.5) Absolute Lymphs (auto) 1.45 (1.0-4.6) Absolute Monos (auto) 0.33 (0.0-1.3) Lymphocytes % 27.6 (24.0-44.0) % Monocytes % 6.3 (0.0-12.0) % Eosinophils % 4.9 (0.00-5.0) % Basophils % 0.4 (0.0-0.4) % Absolute Granulocytes 3.20 (1.4-6.9) Basophils # 0.02 (0-0.4) Sodium 138 (137-145) mmol/L Potassium 4.3 (3.5-5.1) mmol/L Chloride 107 (98-107) mmol/L Carbon Dioxide 22 (22-30) mmol/L Anion Gap 13.8 (5-15) MEQ/L BUN 15 (7-17) mg/dL Creatinine 0.62 (0.52-1.04) mg/dL Estimated GFR > 60.0 ML/MIN Glucose 81 (74-106) mg/dL Calcium 8.2 L (8.4-10.2) mg/dL Total Bilirubin 0.40 (0.2-1.3) mg/dL AST 28 (14-36) U/L ALT 13 (0-35) U/L Alkaline Phosphatase 56 (38-126) U/L Troponin I < 0.012 (0.000-0.034) ng/mL Serum Total Protein 5.8 L (6.3-8.2) g/dL Albumin 3.4 L (3.5-5.0) g/dL Urine Color (YELLOW) Urine Appearance (CLEAR) Urine pH (5-6) Ur Specific Frederica (1.005-1.025) Urine Protein (Negative) Urine Ketones (NEGATIVE) Urine Blood (0-5) Charly/ul Urine Nitrite (NEGATIVE) Urine Bilirubin (NEGATIVE) Urine Urobilinogen (0-1) mg/dL Ur Leukocyte Esterase (NEGATIVE) Urine WBC (Auto) (0-5) /HPF Urine RBC (Auto) (0-2) /HPF U Epithel Cells (Auto) (FEW) /HPF Urine Bacteria (Auto) (NEGATIVE) /HPF Urine Mucus (Auto) (NEGATIVE) /HPF Urine Culture Reflexed (NO) Urine Glucose (NEGATIVE) mg/dL SARS-CoV-2 (PCR) (NEGATIVE) 01/11/21 01/11/21 01/11/21 Range/Units 19:40 21:10 21:30 WBC (4.0-10.5) K/mm3 RBC (4.1-5.4) M/mm3 Hgb (12.0-16.0) gm/dl Hct (35-47) % MCV (78-100) fl MCH (26-32) pg MCHC (32-36) g/dl RDW (11.5-14.0) % Plt Count (150-450) K/mm3 MPV (7.5-11.0) fl Gran % (36.0-66.0) % Eos # (Auto) (0-0.5) Absolute Lymphs (auto) (1.0-4.6) Absolute Monos (auto) (0.0-1.3) Lymphocytes % (24.0-44.0) % Monocytes % (0.0-12.0) % Eosinophils % (0.00-5.0) % Basophils % (0.0-0.4) % Absolute Granulocytes (1.4-6.9) Basophils # (0-0.4) Sodium (137-145) mmol/L Potassium (3.5-5.1) mmol/L Chloride (98-107) mmol/L Carbon Dioxide (22-30) mmol/L Anion Gap (5-15) MEQ/L BUN (7-17) mg/dL Creatinine (0.52-1.04) mg/dL Estimated GFR ML/MIN Glucose (74-106) mg/dL Calcium (8.4-10.2) mg/dL Total Bilirubin (0.2-1.3) mg/dL AST (14-36) U/L ALT (0-35) U/L Alkaline Phosphatase (38-126) U/L Troponin I < 0.012 (0.000-0.034) ng/mL Serum Total Protein (6.3-8.2) g/dL Albumin (3.5-5.0) g/dL Urine Color YELLOW (YELLOW) Urine Appearance SLIGHTLY CLOUDY (CLEAR) Urine pH 6.0 (5-6) Ur Specific Frederica 1.021 (1.005-1.025) Urine Protein NEGATIVE (Negative) Urine Ketones NEGATIVE (NEGATIVE) Urine Blood NEGATIVE (0-5) Charly/ul Urine Nitrite NEGATIVE (NEGATIVE) Urine Bilirubin NEGATIVE (NEGATIVE) Urine Urobilinogen 4 (0-1) mg/dL Ur Leukocyte Esterase NEGATIVE (NEGATIVE) Urine WBC (Auto) 0-2 (0-5) /HPF Urine RBC (Auto) NONE (0-2) /HPF U Epithel Cells (Auto) RARE (FEW) /HPF Urine Bacteria (Auto) NONE (NEGATIVE) /HPF Urine Mucus (Auto) SLIGHT (NEGATIVE) /HPF Urine Culture Reflexed NO (NO) Urine Glucose NEGATIVE (NEGATIVE) mg/dL SARS-CoV-2 (PCR) NEGATIVE (NEGATIVE) 01/12/21 01/12/21 Range/Units 05:05 05:05 WBC 4.1 (4.0-10.5) K/mm3 RBC 3.51 L (4.1-5.4) M/mm3 Hgb 10.8 L (12.0-16.0) gm/dl Hct 33.2 L (35-47) % MCV 94.6 (78-100) fl MCH 30.8 (26-32) pg MCHC 32.5 (32-36) g/dl RDW 12.8 (11.5-14.0) % Plt Count 178 (150-450) K/mm3 MPV 9.7 (7.5-11.0) fl Gran % 46.8 (36.0-66.0) % Eos # (Auto) 0.33 (0-0.5) Absolute Lymphs (auto) 1.52 (1.0-4.6) Absolute Monos (auto) 0.31 (0.0-1.3) Lymphocytes % 37.3 (24.0-44.0) % Monocytes % 7.6 (0.0-12.0) % Eosinophils % 8.1 H (0.00-5.0) % Basophils % 0.2 (0.0-0.4) % Absolute Granulocytes 1.90 (1.4-6.9) Basophils # 0.01 (0-0.4) Sodium 139 (137-145) mmol/L Potassium 3.5 (3.5-5.1) mmol/L Chloride 107 (98-107) mmol/L Carbon Dioxide 24 (22-30) mmol/L Anion Gap 11.7 (5-15) MEQ/L BUN 12 (7-17) mg/dL Creatinine 0.68 (0.52-1.04) mg/dL Estimated GFR > 60.0 ML/MIN Glucose 81 (74-106) mg/dL Calcium 8.0 L (8.4-10.2) mg/dL Total Bilirubin 0.40 (0.2-1.3) mg/dL AST 20 (14-36) U/L ALT 11 (0-35) U/L Alkaline Phosphatase 47 (38-126) U/L Troponin I (0.000-0.034) ng/mL Serum Total Protein 5.3 L (6.3-8.2) g/dL Albumin 3.0 L (3.5-5.0) g/dL Urine Color (YELLOW) Urine Appearance (CLEAR) Urine pH (5-6) Ur Specific Frederica (1.005-1.025) Urine Protein (Negative) Urine Ketones (NEGATIVE) Urine Blood (0-5) Charly/ul Urine Nitrite (NEGATIVE) Urine Bilirubin (NEGATIVE) Urine Urobilinogen (0-1) mg/dL Ur Leukocyte Esterase (NEGATIVE) Urine WBC (Auto) (0-5) /HPF Urine RBC (Auto) (0-2) /HPF U Epithel Cells (Auto) (FEW) /HPF Urine Bacteria (Auto) (NEGATIVE) /HPF Urine Mucus (Auto) (NEGATIVE) /HPF Urine Culture Reflexed (NO) Urine Glucose (NEGATIVE) mg/dL SARS-CoV-2 (PCR) (NEGATIVE) - Radiology Impressions Radiology Exams & Impressions: Radiology Procedures Category Date Time Status CHEST WITHOUT CONTRAST [CT] Stat Exams 01/11/21 19:28 Completed Assessment/Plan (1) Nausea & vomiting Current Visit: Yes Status: Acute Assessment & Plan: I spoke with Dr Camejo and he requests transfer, he will have transfer center call unit with bed assignment Code(s): R11.2 - NAUSEA WITH VOMITING, UNSPECIFIED (2) Abdominal pain Current Visit: No Status: Acute Code(s): R10.9 - UNSPECIFIED ABDOMINAL PAIN (3) Hx of bariatric surgery Current Visit: No Status: Acute Code(s): Z98.84 - BARIATRIC SURGERY STATUS Hospital Summary - Vitals & Intake/Output Vital Signs: Vital Signs Temperature 98.8 F 01/12/21 07:29 Pulse Rate 51 L 01/12/21 07:29 Respiratory Rate 16 01/12/21 07:29 Blood Pressure 100/59 01/12/21 07:29 O2 Sat by Pulse Oximetry 98 01/12/21 07:29 Intake & Output: Intake & Output 01/09/21 01/10/21 01/11/21 01/12/21 11:59 11:59 11:59 11:59 Intake Total 560 Balance 560 Weight 106 kg - Lab Result Diagrams: 01/12/21 05:05 01/12/21 05:05 Lab Results-Last 24 Hrs: Lab Results-Last 24 Hours 01/11/21 01/11/21 01/11/21 Range/Units 19:14 19:14 19:14 WBC 5.3 (4.0-10.5) K/mm3 RBC 3.69 L (4.1-5.4) M/mm3 Hgb 11.3 L (12.0-16.0) gm/dl Hct 34.8 L (35-47) % MCV 94.3 (78-100) fl MCH 30.6 (26-32) pg MCHC 32.5 (32-36) g/dl RDW 12.8 (11.5-14.0) % Plt Count 203 (150-450) K/mm3 MPV 10.1 (7.5-11.0) fl Gran % 60.8 (36.0-66.0) % Eos # (Auto) 0.26 (0-0.5) Absolute Lymphs (auto) 1.45 (1.0-4.6) Absolute Monos (auto) 0.33 (0.0-1.3) Lymphocytes % 27.6 (24.0-44.0) % Monocytes % 6.3 (0.0-12.0) % Eosinophils % 4.9 (0.00-5.0) % Basophils % 0.4 (0.0-0.4) % Absolute Granulocytes 3.20 (1.4-6.9) Basophils # 0.02 (0-0.4) Sodium 138 (137-145) mmol/L Potassium 4.3 (3.5-5.1) mmol/L Chloride 107 (98-107) mmol/L Carbon Dioxide 22 (22-30) mmol/L Anion Gap 13.8 (5-15) MEQ/L BUN 15 (7-17) mg/dL Creatinine 0.62 (0.52-1.04) mg/dL Estimated GFR > 60.0 ML/MIN Glucose 81 (74-106) mg/dL Calcium 8.2 L (8.4-10.2) mg/dL Total Bilirubin 0.40 (0.2-1.3) mg/dL AST 28 (14-36) U/L ALT 13 (0-35) U/L Alkaline Phosphatase 56 (38-126) U/L Troponin I < 0.012 (0.000-0.034) ng/mL Serum Total Protein 5.8 L (6.3-8.2) g/dL Albumin 3.4 L (3.5-5.0) g/dL Urine Color (YELLOW) Urine Appearance (CLEAR) Urine pH (5-6) Ur Specific Frederica (1.005-1.025) Urine Protein (Negative) Urine Ketones (NEGATIVE) Urine Blood (0-5) Charly/ul Urine Nitrite (NEGATIVE) Urine Bilirubin (NEGATIVE) Urine Urobilinogen (0-1) mg/dL Ur Leukocyte Esterase (NEGATIVE) Urine WBC (Auto) (0-5) /HPF Urine RBC (Auto) (0-2) /HPF U Epithel Cells (Auto) (FEW) /HPF Urine Bacteria (Auto) (NEGATIVE) /HPF Urine Mucus (Auto) (NEGATIVE) /HPF Urine Culture Reflexed (NO) Urine Glucose (NEGATIVE) mg/dL SARS-CoV-2 (PCR) (NEGATIVE) 01/11/21 01/11/21 01/11/21 Range/Units 19:40 21:10 21:30 WBC (4.0-10.5) K/mm3 RBC (4.1-5.4) M/mm3 Hgb (12.0-16.0) gm/dl Hct (35-47) % MCV (78-100) fl MCH (26-32) pg MCHC (32-36) g/dl RDW (11.5-14.0) % Plt Count (150-450) K/mm3 MPV (7.5-11.0) fl Gran % (36.0-66.0) % Eos # (Auto) (0-0.5) Absolute Lymphs (auto) (1.0-4.6) Absolute Monos (auto) (0.0-1.3) Lymphocytes % (24.0-44.0) % Monocytes % (0.0-12.0) % Eosinophils % (0.00-5.0) % Basophils % (0.0-0.4) % Absolute Granulocytes (1.4-6.9) Basophils # (0-0.4) Sodium (137-145) mmol/L Potassium (3.5-5.1) mmol/L Chloride (98-107) mmol/L Carbon Dioxide (22-30) mmol/L Anion Gap (5-15) MEQ/L BUN (7-17) mg/dL Creatinine (0.52-1.04) mg/dL Estimated GFR ML/MIN Glucose (74-106) mg/dL Calcium (8.4-10.2) mg/dL Total Bilirubin (0.2-1.3) mg/dL AST (14-36) U/L ALT (0-35) U/L Alkaline Phosphatase (38-126) U/L Troponin I < 0.012 (0.000-0.034) ng/mL Serum Total Protein (6.3-8.2) g/dL Albumin (3.5-5.0) g/dL Urine Color YELLOW (YELLOW) Urine Appearance SLIGHTLY CLOUDY (CLEAR) Urine pH 6.0 (5-6) Ur Specific Frederica 1.021 (1.005-1.025) Urine Protein NEGATIVE (Negative) Urine Ketones NEGATIVE (NEGATIVE) Urine Blood NEGATIVE (0-5) Charly/ul Urine Nitrite NEGATIVE (NEGATIVE) Urine Bilirubin NEGATIVE (NEGATIVE) Urine Urobilinogen 4 (0-1) mg/dL Ur Leukocyte Esterase NEGATIVE (NEGATIVE) Urine WBC (Auto) 0-2 (0-5) /HPF Urine RBC (Auto) NONE (0-2) /HPF U Epithel Cells (Auto) RARE (FEW) /HPF Urine Bacteria (Auto) NONE (NEGATIVE) /HPF Urine Mucus (Auto) SLIGHT (NEGATIVE) /HPF Urine Culture Reflexed NO (NO) Urine Glucose NEGATIVE (NEGATIVE) mg/dL SARS-CoV-2 (PCR) NEGATIVE (NEGATIVE) 01/12/21 01/12/21 Range/Units 05:05 05:05 WBC 4.1 (4.0-10.5) K/mm3 RBC 3.51 L (4.1-5.4) M/mm3 Hgb 10.8 L (12.0-16.0) gm/dl Hct 33.2 L (35-47) % MCV 94.6 (78-100) fl MCH 30.8 (26-32) pg MCHC 32.5 (32-36) g/dl RDW 12.8 (11.5-14.0) % Plt Count 178 (150-450) K/mm3 MPV 9.7 (7.5-11.0) fl Gran % 46.8 (36.0-66.0) % Eos # (Auto) 0.33 (0-0.5) Absolute Lymphs (auto) 1.52 (1.0-4.6) Absolute Monos (auto) 0.31 (0.0-1.3) Lymphocytes % 37.3 (24.0-44.0) % Monocytes % 7.6 (0.0-12.0) % Eosinophils % 8.1 H (0.00-5.0) % Basophils % 0.2 (0.0-0.4) % Absolute Granulocytes 1.90 (1.4-6.9) Basophils # 0.01 (0-0.4) Sodium 139 (137-145) mmol/L Potassium 3.5 (3.5-5.1) mmol/L Chloride 107 (98-107) mmol/L Carbon Dioxide 24 (22-30) mmol/L Anion Gap 11.7 (5-15) MEQ/L BUN 12 (7-17) mg/dL Creatinine 0.68 (0.52-1.04) mg/dL Estimated GFR > 60.0 ML/MIN Glucose 81 (74-106) mg/dL Calcium 8.0 L (8.4-10.2) mg/dL Total Bilirubin 0.40 (0.2-1.3) mg/dL AST 20 (14-36) U/L ALT 11 (0-35) U/L Alkaline Phosphatase 47 (38-126) U/L Troponin I (0.000-0.034) ng/mL Serum Total Protein 5.3 L (6.3-8.2) g/dL Albumin 3.0 L (3.5-5.0) g/dL Urine Color (YELLOW) Urine Appearance (CLEAR) Urine pH (5-6) Ur Specific Frederica (1.005-1.025) Urine Protein (Negative) Urine Ketones (NEGATIVE) Urine Blood (0-5) Charly/ul Urine Nitrite (NEGATIVE) Urine Bilirubin (NEGATIVE) Urine Urobilinogen (0-1) mg/dL Ur Leukocyte Esterase (NEGATIVE) Urine WBC (Auto) (0-5) /HPF Urine RBC (Auto) (0-2) /HPF U Epithel Cells (Auto) (FEW) /HPF Urine Bacteria (Auto) (NEGATIVE) /HPF Urine Mucus (Auto) (NEGATIVE) /HPF Urine Culture Reflexed (NO) Urine Glucose (NEGATIVE) mg/dL SARS-CoV-2 (PCR) (NEGATIVE) - Radiology Exams Ordered Rad Exams-Entire Visit: Radiology Procedures Category Date Time Status CHEST WITHOUT CONTRAST [CT] Stat Exams 01/11/21 19:28 Completed - Discharge Disposition: XFER OTHER Condition: Stable Prescriptions: No Action Omeprazole [Prilosec] 20 mg PO DAILY Cyclobenzaprine HCl 10 mg [Cyclobenzaprine 10 MG] 10 mg PO TIDPRN Fluoxetine HCl 20 mg [Prozac 20 MG] 1 cap PO HS Pedi Multivit No.25/Folic Acid [Flintstones Multivit Chew Tab] 2 tab PO DAILY Fluticasone/Vilanterol [Breo Ellipta 100-25 Mcg INH] 1 each IH DAILY Albuterol Common Canister [Ventolin Common Canister] 2 puff IH Q4H PRN PRN Reason: Shortness Of Breath Montelukast Sodium [Singulair] 4 mg PO DAILY Tiotropium Ardenvoir [Spiriva Respimat] 4 gm IH DAILY Gabapentin 800 mg PO TID Ondansetron ODT 4 MG [Zofran Odt 4 mg] 4 mg PO Q4-6HPRN PRN PRN Reason: Nausea Estradiol 1 mg [Estrace 1 mg] 1 mg PO DAILY Azelastine Nasal [Astelin Nasal] 1 spray INTRANASAL UD Trazodone HCl 150 mg PO HS Pyridostigmine Ardenvoir [Mestinon] 60 mg PO TID Oxybutynin Chloride [Oxybutynin Chloride ER] 10 mg PO DAILY Topiramate [Topamax] 50 mg PO BID Diclofenac Sodium Gel [Voltaren GEL] 1 applic TOP UD PRN PRN Reason: joint pain Pramipexole Di-HCl 0.5 mg [Mirapex 0.5 MG Tablet] 1 ea DAILY Isomethept/Acetaminop/Dichlphn [Midrin Capsule] 10 mg PO TID Hydrocodone/APAP 5-325 Tab^^^ [Moultrie 5-325 Tablet^^^] 10 - 325 mg PO TID MDD 6 Additional Instructions: Dr Liang Camejo accepting physician Follow up with: RIANNA BUI [Primary Care Provider] -
[2021-01-12] MEDS ORDERED: VENTOLIN COMMON CANISTER IH PRN (09:54)
[2021-01-12] MEDS ORDERED: NON-FORMULARY ITEM (Pyridostigmine Bromide [Mestinon] 60 MG) PO SCH (10:00)
[2021-01-12] MEDS ORDERED: ASTELIN NASAL INTRANASAL SCH (10:00)
[2021-01-12] MEDS ORDERED: Spiriva 18 Mcg/Cap Inhaler IH SCH (10:00)
[2021-01-12] MEDS ORDERED: NON-FORMULARY ITEM (Fluticasone/Vilanterol [Breo Ellipta 100-25 Mcg Inh] 1 EACH) IH SCH (10:00)
[2021-01-12] MEDS ORDERED: TIOTROPIUM BROMIDE 4 GM IH SCH (10:00)
[2021-01-12] MEDS ORDERED: PROTONIX 40 MG IV IV SCH (10:00)
[2021-01-12] MEDS ORDERED: MEDICATION INTERVENTION MC SCH (10:15)
[2021-01-12] MEDS ORDERED: Advair Hfa 115/21 Common canister IH SCH (10:30)
[2021-01-12] MEDS ORDERED: MORPHINE SULFATE 4 MG INJ IV ONE (10:32)
[2021-01-12 11:53] VITALS: BP 99/63; PULSE 62; O2SAT 97
== END 2021-01-12 16:20 ==
LOC: ED 17:12 → MED SURG 22:53
PROVIDERS: ADMIT Family Medicine; ATTEND Family Medicine
DX: R11.2 Nausea with vomiting, unspecified (principal); K22.2 Esophageal obstruction; E86.0 Dehydration; R10.9 Unspecified abdominal pain; Z98.84 Bariatric surgery status; Z79.899 Other long term (current) drug therapy; Z20.828 Contact with and (suspected) exposure to other viral communicable diseases; K44.9 Diaphragmatic hernia without obstruction or gangrene
CPT/HCPCS: 36000; 36415; 71250; 80053; 81001; 84484; 85025; 93005; 93041; 94640; 94760; 99285; G0378; U0003; J2060; J2270; J2405; A9270-GY

== ENCOUNTER 2021-02-08 17:41 | Day surgery (SDC) | payer MEDICAID ==
[2021-02-08] MEDS ORDERED: Sodium Chloride 0.9(Preservative Free) 10 ML IJ ONE (17:42)
[2021-02-08] MEDS ORDERED: Decadron 4 MG INJ IV ONE (17:42)
[2021-02-08] MEDS ORDERED: Xylocaine 1% Vial 30 ML PF IJ ONE (17:42)
[2021-02-08] MEDS ORDERED: Lactated Ringers 1,000 ML IV ONE (17:58)
[2021-02-08] MEDS ORDERED: TORAdol 30 mg Injection ONE (19:12)
--- NOTE | 2021-02-09 09:13 | XRAY ---
Indication: Cervical BREE. Intraoperative fluoroscopy provided for 30 seconds. Single digital spot image submitted for interpretation demonstrates midline posterior needle tip projecting over the cervical thoracic junction. Small amount of contrast injected for needle tip placement. Correlate with intraoperative findings/report.
--- NOTE | 2021-02-09 15:50 | XRAY ---
30 seconds of fluoroscopy was used in surgery for a cervical BREE.
== END 2021-02-08 19:08 | disposition home or self-care (01) ==
LOC: SDC-PAIN 17:41
PROVIDERS: ATTEND Psychiatry & Neurology Pain Medicine
DX: M54.12 Radiculopathy, cervical region (principal); Z79.899 Other long term (current) drug therapy
CPT/HCPCS: 62321; 72040; 77003; J1100; J1885; J2001; Q9966

== ENCOUNTER 2021-05-12 14:48 | Emergency (ER) | payer OTHER ==
--- NOTE | 2021-05-12 14:54 | ERPHSYRPT ---
- History of Present Illness Time Seen by Provider: 05/12/21 14:54 Source: patient Exam Limitations: no limitations Physician History: This is a 40-year-old white female patient of Dr. Bryn Villarreal who presents with dizziness for at least a week and a half. Dr. Bryn Villarreal is aware of this patient's dizziness complaint. Patient does see a pain specialist as well. She is recently seen by her pain specialist. Patient has a history of migraine headaches, hypothyroidism, gastroesophageal reflux disease, asthma, peripheral neuropathy, congenital myasthenia syndrome, and Bárbara's disease. Patient states she also has some head pressure which is different than her typical migraine headache presentation. She has no visual changes. Patient underwent lab work on 05/12/2021 (today) and her thyroxine for level was within normal limits but her TSH level was low. She also had significant lab work done on 05/10/[address] Bryn Villarreal. Of significance the sedimentation rate was 37 with normal being less than 20. Patient denies head injury. Patient is concerned because she has had persistent dizziness for a week and a half. Timing/Duration: week(s) (A week and a half) Severity: mild (To moderate) Character of Deficits: none Deficits: no difficulties Baseline/Normal Cognition: alert oriented x 3 Current Cognition: alert oriented x 3 Baseline Gait: walks w/o assistance Associated Symptoms: headache (Described as a pressure) Allergies/Adverse Reactions: NSAIDS (Non-Steroidal Anti-Inflamma Adverse Reaction (Unknown, Verified 05/12/21 15:12) No NSAIDS due to bariatric surgery. Home Medications: Cyclobenzaprine HCl 10 mg [Cyclobenzaprine 10 MG] 10 mg PO TIDPRN 06/30/15 [History] Omeprazole [Prilosec] 20 mg PO DAILY 06/30/15 [History] Albuterol Common Canister [Ventolin Common Canister] 2 puff IH Q4H PRN 12/20/18 [History] Fluoxetine HCl 20 mg [Prozac 20 MG] 1 cap PO HS 12/20/18 [History] Fluticasone/Vilanterol [Breo Ellipta 100-25 Mcg INH] 1 each IH DAILY 12/20/18 [History] Pedi Multivit No.25/Folic Acid [Flintstones Multivit Chew Tab] 2 tab PO DAILY 12/20/18 [History] Gabapentin 800 mg PO TID 01/29/20 [History] Montelukast Sodium [Singulair] 4 mg PO DAILY 01/29/20 [History] Tiotropium [place] [Spiriva Respimat] 4 gm IH DAILY 01/29/20 [History] Azelastine Nasal [Astelin Nasal] 1 spray INTRANASAL UD 03/25/20 [History] Diclofenac Sodium Gel [Voltaren GEL] 1 applic TOP UD PRN 03/25/20 [History] Estradiol 1 mg [Estrace 1 mg] 1 mg PO DAILY 03/25/20 [History] Ondansetron ODT 4 MG [Zofran Odt 4 mg] 4 mg PO Q4-6HPRN PRN 03/25/20 [History] Pyridostigmine [place] [Mestinon] 60 mg PO TID 03/25/20 [History] Topiramate [Topamax] 50 mg PO BID 03/25/20 [History] Trazodone HCl 150 mg PO HS 03/25/20 [History] Isomethept/Acetaminop/Dichlphn [Midrin Capsule] 10 mg PO TID 01/11/21 [History] Pramipexole Di-HCl 0.5 mg [Mirapex 0.5 MG Tablet] 1 ea DAILY 01/11/21 [History] Hydrocodone/APAP 5-325 Tab^^^ [[place] 5-325 Tablet^^^] 10 - 325 mg PO TID MDD 6 01/12/21 [History] Cyanocobalamin 1000 Mcg/ml [Cyanocobalamin B-12 1000 MCG/ML] 1,000 mcg SQ DIRECTIONS UNKNOWN 05/12/21 [History] Duloxetine HCl 30 mg [Cymbalta 30 MG Capsule] 30 mg PO DAILY 05/12/21 [History] Ergocalciferol (Vitamin D2) [Vitamin D2] 1 cap PO 2XW 05/12/21 [History] Pramipexole Di-HCl [Pramipexole Dihydrochloride] 1 tab PO DAILY 05/12/21 [History] Hx Tetanus, Diphtheria Vaccination/Date Given: (unk) Hx Influenza Vaccination/Date Given: No Hx Pneumococcal Vaccination/Date Given: No Travel Risk - International Travel Have you traveled outside of the country in past 3 weeks: No - Coronavirus Screening Are you exhibiting any of the following symptoms?: No Close contact with a COVID-19 positive Pt in past 14-21 Days: No - Vaccine Status Have you recieved a Covid-19 vaccination: No - Review of Systems Constitutional: No Symptoms Eyes: No Symptoms Ears, Nose, & Throat: No Symptoms Respiratory: No Symptoms Cardiac: No Symptoms Abdominal/Gastrointestinal: No Symptoms Genitourinary Symptoms: No Symptoms Musculoskeletal: No Symptoms Skin: No Symptoms Neurological: Dizziness, Headache (Described as a pressure) Psychological: No Symptoms Endocrine: No Symptoms Hematologic/Lymphatic: No Symptoms Immunological/Allergic: No Symptoms All Other Systems: Reviewed and Negative - Past Medical History Pertinent Past Medical History: Yes Neurological History: Migraines, Peripheral Neuropathy, Other ENT History: Other Cardiac History: Other Respiratory History: Asthma Endocrine Medical History: Other Musculoskeletal History: Other GI Medical History: GERD, Gallbladder Disease History: No Pertinent History Psycho-Social History: No Pertinent History Female Reproductive Disorders: Menstrual Problems Other Medical History: Congenital Myathenic Syndrome , Hashimotos, Bariatric surgery, enlarged spleen, Peripherial neuropathy. Throat strictures. postural tachycardia. cms, arthritis, back surgery in 2011 for herniated disc. Bone spurs, arthritis in neck - Past Surgical History Past Surgical History: Yes Neuro Surgical History: No Pertinent History Cardiac: Cardiac Catheterization Respiratory: No Pertinent History Gastrointestinal: Other Genitourinary: No Pertinent History Musculoskeletal: Orthopedic Surgery Female Surgical History: Hysterectomy, Dilation & Curettage, Other Other Surgical History: uterine thermal ablation, back surgery 2011 ,L knee scope D & C , several cyst. removed. thyroid biopsy. bariatric surgery 10/23/18. ear tubes - Social History Smoking Status: Never smoker Exposure to second hand smoke: No Drug Use: none Patient Lives Alone: No - Nursing Vital Signs Nursing Vital Signs: Initial Vital Signs Temperature 98.8 F 05/12/21 14:56 Pulse Rate 96 H 05/12/21 14:56 Respiratory Rate 20 05/12/21 14:56 Blood Pressure 131/84 05/12/21 14:56 O2 Sat by Pulse Oximetry 100 05/12/21 14:56 Pain Scale Pain Intensity 4 - [place] Coma Scale Best Eye Response ([place]): (4) open spontaneously Best Verbal Response ([place]): (5) oriented Best Motor Response ([place]): (6) obeys commands Earnest Total: 15 - Physical Exam General Appearance: no apparent distress, alert, anxiety Eye Exam: bilateral eye: normal inspection, PERRL, EOMI Ears, Nose, Throat Exam: normal ENT inspection, moist mucous membranes Neck Exam: normal inspection, non-tender, supple, full range of motion Respiratory: normal breath sounds, lungs clear, airway intact, No chest tenderness, No respiratory distress Cardiovascular: regular rate/rhythm, normal heart sounds, normal peripheral pulses Gastrointestinal: soft, normal bowel sounds, No tenderness Pelvic Exam: not done Rectal Exam: not done Back Exam: normal inspection, normal range of motion, No CVA tenderness Extremity Exam: normal inspection, normal range of motion, pelvis stable Mental Status: alert, oriented x 3, 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 Exam: normal hearing, normal speech, PERRL, tongue midline Coordination/Gait: normal finger to nose, normal gait, normal cerebellar function Motor/Sensory: no motor deficit, no sensory deficit, no pronator drift Skin Exam: normal color, warm, dry SpO2 Interpretation: normal O2 Delivery: Room Air - Course Nursing assessment & vital signs reviewed: Yes Ordered Tests: Active Orders 24 hr Category Date Time Status Clean Catch Urine Specimen STAT Care 05/12/21 15:46 Active EKG-ER Only STAT Care 05/12/21 15:46 Active IV Insertion STAT Care 05/12/21 15:46 Active HEAD WITHOUT CONTRAST [CT] Stat Exams 05/12/21 15:47 Completed CBC W DIFF Stat Lab 05/12/21 16:25 Completed CMP Stat Lab 05/12/21 16:25 Completed MAGNESIUM Stat Lab 05/12/21 16:25 Completed TROPONIN Q3H Lab 05/12/21 16:25 Received TROPONIN Q3H Lab 05/12/21 19:00 Ordered TROPONIN Q3H Lab 05/12/21 22:00 Ordered TROPONIN Q3H Lab 05/13/21 01:00 Ordered TROPONIN Q3H Lab 05/13/21 04:00 Ordered UA W/RFX UR CULTURE Stat Lab 05/12/21 16:55 Completed Urine Triage Profile Stat Lab 05/12/21 16:55 Ordered Lab/Rad Data: Laboratory Result Diagrams 05/12/21 16:25 05/12/21 16:25 Laboratory Results 05/12/21 05/12/21 05/12/21 Range/Units 16:55 16:25 16:25 WBC 6.6 (4.0-10.5) K/mm3 RBC 4.07 L (4.1-5.4) M/mm3 Hgb 12.3 (12.0-16.0) gm/dl Hct 38.5 (35-47) % MCV 94.6 (78-100) fl MCH 30.2 (26-32) pg MCHC 31.9 L (32-36) g/dl RDW 12.9 (11.5-14.0) % Plt Count 244 (150-450) K/mm3 MPV 9.9 (7.5-11.0) fl Gran % 65.4 (36.0-66.0) % Eos # (Auto) 0.41 (0-0.5) Absolute Lymphs (auto) 1.48 (1.0-4.6) Absolute Monos (auto) 0.37 (0.0-1.3) Lymphocytes % 22.5 L (24.0-44.0) % Monocytes % 5.6 (0.0-12.0) % Eosinophils % 6.2 H (0.00-5.0) % Basophils % 0.3 (0.0-0.4) % Absolute Granulocytes 4.29 (1.4-6.9) Basophils # 0.02 (0-0.4) Sodium 141 (137-145) mmol/L Potassium 4.4 (3.5-5.1) mmol/L Chloride 108 H (98-107) mmol/L Carbon Dioxide 25 (22-30) mmol/L Anion Gap 11.3 (5-15) MEQ/L BUN 21 H (7-17) mg/dL Creatinine 0.70 (0.52-1.04) mg/dL Estimated GFR > 60.0 ML/MIN Glucose 87 (74-106) mg/dL Calcium 8.1 L (8.4-10.2) mg/dL Magnesium 1.9 (1.6-2.3) mg/dL Total Bilirubin 0.50 (0.2-1.3) mg/dL AST 21 (14-36) U/L ALT 16 (0-35) U/L Alkaline Phosphatase 85 (38-126) U/L Serum Total Protein 6.5 (6.3-8.2) g/dL Albumin 3.8 (3.5-5.0) g/dL Urine Color YELLOW (YELLOW) Urine Appearance SLIGHTLY CLOUDY (CLEAR) Urine pH 5.0 (5-6) Ur Specific [place] 1.024 (1.005-1.025) Urine Protein NEGATIVE (Negative) Urine Ketones TRACE (NEGATIVE) Urine Blood NEGATIVE (0-5) Charly/ul Urine Nitrite NEGATIVE (NEGATIVE) Urine Bilirubin NEGATIVE (NEGATIVE) Urine Urobilinogen 2 (0-1) mg/dL Ur Leukocyte Esterase NEGATIVE (NEGATIVE) Urine WBC (Auto) 0-2 (0-5) /HPF Urine RBC (Auto) NONE (0-2) /HPF U Epithel Cells (Auto) RARE (FEW) /HPF Urine Bacteria (Auto) NONE (NEGATIVE) /HPF Urine Mucus (Auto) SLIGHT (NEGATIVE) /HPF Urine Culture Reflexed NO (NO) Urine Glucose >=500 (NEGATIVE) mg/dL - Progress Progress: improved, re-examined Progress Note: 05/12/21 17:41 CAT scan of the head without contrast is normal without acute findings Counseled pt/family regarding: lab results, diagnosis, need for follow-up, rad results - Departure Departure Disposition: Home Clinical Impression: Dizziness Condition: Stable Critical Care Time: No Referrals: RIANNA CUELLAR [Primary Care Provider] - Follow up/PCP as directed Additional Instructions: Drink plenty of fluids. Take your medication as prescribed. Follow-up with Dr. Bryn Villarreal office by phone on 05/15/2021, for further instructions and management.
--- NOTE | 2021-05-12 16:14 | XRAY ---
Indication: Dizziness and headache. Multiple contiguous images obtained through the head without contrast. Comparison: July 12, 2020. Normal appearing brain parenchyma, ventricles, and bony calvarium. Visualized paranasal sinuses and mastoid air cells are clear. Impression: Continued normal CT head without contrast exam.
[2021-05-12 17:22] LABS: ALBUMIN 3.8 g/dL (3.5-5.0); ALKALINE PHOSPHATASE 85 U/L (38-126); ANION GAP 11.3 MEQ/L (5-15); BLOOD UREA NITROGEN 21 mg/dL (7-17); CHLORIDE 108 mmol/L (98-107); Calcium 8.1 mg/dL (8.4-10.2); Carbon Dioxide 25 mmol/L (22-30); EST GLOMERULAR FILTRATION RATE > 60.0 ML/MIN; Glucose 87 mg/dL (74-106); MAGNESIUM 1.9 mg/dL (1.6-2.3); Potassium 4.4 mmol/L (3.5-5.1); SGOT/AST 21 U/L (14-36); SGPT/ALT 16 U/L (0-35); SODIUM 141 mmol/L (137-145); Total Protein 6.5 g/dL (6.3-8.2)
[2021-05-12 17:25] LABS: Appearance SLIGHTLY CLOUDY (CLEAR); Bilirubin NEGATIVE (NEGATIVE); Blood NEGATIVE Ery/ul (0-5); Epithelial Cells RARE /HPF (FEW); Glucose >=500 mg/dL (NEGATIVE); Ketones TRACE (NEGATIVE); Leukocyte Esterase NEGATIVE (NEGATIVE); Mucus SLIGHT /HPF (NEGATIVE); Nitrite NEGATIVE (NEGATIVE); Protein,Urine Dip NEGATIVE (Negative); Specific Gravity 1.024 (1.005-1.025); Urobilinogen 2 mg/dL (0-1); WBC 0-2 /HPF (0-5)
[2021-05-12 17:26] LABS: Absolute Neutrophil Ct (ANC) 4.29 (1.4-6.9); BASOPHIL % 0.3 % (0.0-0.4); Basophil (Absolute #) 0.02 (0-0.4); Eosinophil % 6.2 % (0.00-5.0); Eosinophil (Absolute #) 0.41 (0-0.5); Hematocrit 38.5 % (35-47); Hemoglobin 12.3 gm/dl (12.0-16.0); Lymphocyte (Absolute #) 1.48 (1.0-4.6); Lymphocytes % 22.5 % (24.0-44.0); Mean Cell Volume 94.6 fl (78-100); Mean Corpuscular Hemoglobin 30.2 pg (26-32); Mean Corpuscular Hgb Concent. 31.9 g/dl (32-36); Mean Platelet Volume 9.9 fl (7.5-11.0); Monocyte (Absolute #) 0.37 (0.0-1.3); Monocytes % 5.6 % (0.0-12.0); Neutrophil % 65.4 % (36.0-66.0); Platelet Count 244 K/mm3 (150-450); Red Blood Count 4.07 M/mm3 (4.1-5.4); Red Cell Distribution Width 12.9 % (11.5-14.0); White Blood Count 6.6 K/mm3 (4.0-10.5)
[2021-05-12 17:57] LABS: Amphetamine,Urine NEGATIVE (NEGATIVE); Barbiturate,Urine NEGATIVE (NEGATIVE); Benzodiazepine,Urine NEGATIVE (NEGATIVE); Cocaine,Urine NEGATIVE (NEGATIVE); Methadone,Urine NEGATIVE (NEGATIVE); Opiate,Urine POSITIVE (NEGATIVE); PCP,Urine NEGATIVE (NEGATIVE); THC,Urine NEGATIVE (NEGATIVE)
[2021-05-15 17:03] VITALS: BP 123/89; PULSE 73; O2SAT 98
== END 2021-05-12 18:19 | disposition home or self-care (01) ==
LOC: ED 14:48
DX: R42 Dizziness and giddiness (principal); R51.9 Headache, unspecified; Z79.891 Long term (current) use of opiate analgesic; Z79.899 Other long term (current) drug therapy
CPT/HCPCS: 36000; 36415; 70450; 80053; 80307; 81001; 83735; 84484; 85025; 93005; 99284

== ENCOUNTER 2021-06-23 11:43 | Emergency (ER) | payer OTHER ==
[2021-06-23] MEDS ORDERED: Lactated Ringers 1,000 ML IV ONE ×4 (12:22→14:54)
--- NOTE | 2021-06-23 12:37 | ERPHSYRPT ---
- History of Present Illness Time Seen by Provider: 06/23/21 11:45 Source: patient Exam Limitations: no limitations Patient Subjective Stated Complaint: weakness Triage Nursing Assessment: Patient brought back to ED via w/c and transferred self to bed. Patient A+O x3. Patient's skin pink, warm and dry. Patient was scheduled for an infusion of a liter of LR and 4mg of zofran to treat her othostatic hypotension. Prior to coming to outpatient patient states she started feeling weak, double vision/blurred vision and a feeling of faint. Patient also complains of intermittent chest pain /. Patient complains of fatigue and nausea. Physician History: 41 years old female with history of myasthenic syndrome, orthostatic hypotension/POTS needing lactated Ringer twice a week presented in the ER from infusion center with increasing generalized weakness fatigue and tiredness. Patient reports this has been going on since yesterday, checked her blood sugar it was in 40s, does not have history of diabetes mellitus but it does happen at times that her blood sugar bottoms out. She is feeling weak and tired and every time she tries to ambulate feels as if she is going to pass out. Same thing was happening at the infusion center earlier. She also has double vision which is part of myasthenic syndrome and this has been going off and on since yesterday. Denies any focal numbness tingling or weakness. Patient has been thoroughly worked up for diplopia in the past. No headache but gets dizzy/lightheaded with standing. On arrival in the ER patient could not stand up and was getting orthostatics with heart rate jumping in 140s. Denies any chest pain palpitations or shortness of breath. No fever or chills reported. Timing/Duration: yesterday, constant, gradual onset, worse Severity: moderate Modifying Factors: Improves With: rest. Worsens With: movement Associated Symptoms: malaise, weakness, No shortness of breath, No heartburn, No diaphoresis, No headaches Allergies/Adverse Reactions: NSAIDS (Non-Steroidal Anti-Inflamma Adverse Reaction (Unknown, Verified 06/23/21 11:53) No NSAIDS due to bariatric surgery. Home Medications: Cyclobenzaprine HCl 10 mg [Cyclobenzaprine 10 MG] 10 mg PO TIDPRN 06/30/15 [History] Omeprazole [Prilosec] 20 mg PO DAILY 06/30/15 [History] Albuterol Common Canister [Ventolin Common Canister] 2 puff IH Q4H PRN 12/20/18 [History] Fluoxetine HCl 20 mg [Prozac 20 MG] 1 cap PO HS 12/20/18 [History] Fluticasone/Vilanterol [Breo Ellipta 100-25 Mcg INH] 1 each IH DAILY 12/20/18 [History] Pedi Multivit No.25/Folic Acid [Flintstones Multivit Chew Tab] 2 tab PO DAILY 12/20/18 [History] Gabapentin 800 mg PO TID 01/29/20 [History] Montelukast Sodium [Singulair] 4 mg PO DAILY 01/29/20 [History] Tiotropium [place] [Spiriva Respimat] 4 gm IH DAILY 01/29/20 [History] Azelastine Nasal [Astelin Nasal] 1 spray INTRANASAL UD 03/25/20 [History] Diclofenac Sodium Gel [Voltaren GEL] 1 applic TOP UD PRN 03/25/20 [History] Estradiol 1 mg [Estrace 1 mg] 1 mg PO DAILY 03/25/20 [History] Ondansetron ODT 4 MG [Zofran Odt 4 mg] 4 mg PO Q4-6HPRN PRN 03/25/20 [History] Pyridostigmine [place] [Mestinon] 60 mg PO TID 03/25/20 [History] Topiramate [Topamax] 50 mg PO BID 03/25/20 [History] Trazodone HCl 150 mg PO HS 03/25/20 [History] Isomethept/Acetaminop/Dichlphn [Midrin Capsule] 10 mg PO TID 01/11/21 [History] Pramipexole Di-HCl 0.5 mg [Mirapex 0.5 MG Tablet] 1 ea DAILY 01/11/21 [Hi story] Hydrocodone/APAP 5-325 Tab^^^ [[place] 5-325 Tablet^^^] 10 - 325 mg PO TID MDD 6 01/12/21 [History] Cyanocobalamin 1000 Mcg/ml [Cyanocobalamin B-12 1000 MCG/ML] 1,000 mcg SQ DIRECTIONS UNKNOWN 05/12/21 [History] Duloxetine HCl 30 mg [Cymbalta 30 MG Capsule] 30 mg PO DAILY 05/12/21 [Hi story] Ergocalciferol (Vitamin D2) [Vitamin D2] 1 cap PO 2XW 05/12/21 [History] Pramipexole Di-HCl [Pramipexole Dihydrochloride] 1 tab PO DAILY 05/12/21 [History] Fluoxetine HCl 20 mg [Prozac 20 MG] 20 mg PO DAILY 05/16/21 [History] Hx Tetanus, Diphtheria Vaccination/Date Given: (unk) Hx Influenza Vaccination/Date Given: No Hx Pneumococcal Vaccination/Date Given: No Immunizations Up to Date: Yes Travel Risk - International Travel Have you traveled outside of the country in past 3 weeks: No - Coronavirus Screening Are you exhibiting any of the following symptoms?: No Close contact with a COVID-19 positive Pt in past 14-21 Days: No - Vaccine Status Have you recieved a Covid-19 vaccination: Yes Ap Processor: Moderna - Vaccination Dates Date of 2cond Vaccination (if applicable): March 2021 - Review of Systems Constitutional: Fatigue, Weakness Eyes: No Symptoms Ears, Nose, & Throat: No Symptoms Respiratory: No Symptoms Cardiac: No Symptoms Abdominal/Gastrointestinal: No Symptoms Genitourinary Symptoms: No Symptoms Musculoskeletal: No Symptoms Skin: No Symptoms Neurological: No Symptoms Psychological: No Symptoms Endocrine: No Symptoms Hematologic/Lymphatic: No Symptoms Immunological/Allergic: No Symptoms - Past Medical History Pertinent Past Medical History: Yes Neurological History: Migraines, Peripheral Neuropathy, Other ENT History: Other Cardiac History: Other Respiratory History: Asthma Endocrine Medical History: Other Musculoskeletal History: Other GI Medical History: GERD, Gallbladder Disease History: No Pertinent History Psycho-Social History: No Pertinent History Female Reproductive Disorders: Menstrual Problems Other Medical History: Congenital Myathenic Syndrome , Hashimotos, Bariatric surgery, enlarged spleen, Peripherial neuropathy. Throat strictures. postural tachycardia. cms, arthritis, back surgery in 2011 for herniated disc. Bone s purs, arthritis in neck,MS,Fibromyalgia - Past Surgical History Past Surgical History: Yes Neuro Surgical History: No Pertinent History Cardiac: Cardiac Catheterization Respiratory: No Pertinent History Gastrointestinal: Other Genitourinary: No Pertinent History Musculoskeletal: Orthopedic Surgery Female Surgical History: Hysterectomy, Dilation & Curettage, Other Other Surgical History: uterine thermal ablation, back surgery 2011 ,L knee scope D & C , several cyst. removed. thyroid biopsy. bariatric surgery 10/23/18. ear tubes. throat stretched and port placed - Social History Smoking Status: Never smoker Exposure to second hand smoke: No Drug Use: none Patient Lives Alone: No - Female History Hx Last Menstrual Period: hysterectomy Hx Now: (unkn) - Nursing Vital Signs Nursing Vital Signs: Initial Vital Signs Temperature 96.9 F 06/23/21 11:53 Pulse Rate 96 H 06/23/21 11:53 Respiratory Rate 18 06/23/21 11:53 Blood Pressure 127/92 06/23/21 11:53 O2 Sat by Pulse Oximetry 96 06/23/21 11:53 Pain Scale Pain Intensity 0 - Physical Exam General Appearance: no apparent distress, alert Eye Exam: PERRL/EOMI, eyes nml inspection Ears, Nose, Throat Exam: normal ENT inspection, pharynx normal, moist mucous membranes Neck Exam: normal inspection, non-tender, supple, full range of motion Respiratory Exam: normal breath sounds, lungs clear Cardiovascular Exam: regular rate/rhythm, normal heart sounds Gastrointestinal/Abdomen Exam: soft, normal bowel sounds, No tenderness Back Exam: normal inspection, normal range of motion Extremity Exam: normal inspection, normal range of motion, pelvis stable Neurologic Exam: alert, oriented x 3, cooperative, emergency detail driver II-XII nml as tested, normal mood/affect, nml cerebellar function, sensation nml, No motor deficits Skin Exam: normal color SpO2 Interpretation: normal SpO2: 96 O2 Delivery: Room Air - Course EKG Interpreted by Me: RATE ([id number]), Sinus Tach, NORMAL AXIS, NORMAL INTERVALS, Non-specific ST Changes Ordered Tests: Active Orders 24 hr Category Date Time Status Hazmat Technician STAT Care 06/23/21 12:21 Active EKG-ER Only STAT Care 06/23/21 12:21 Active IV Insertion STAT Care 06/23/21 12:21 Active CHEST 1 VIEW (PORTABLE) Stat Exams 06/23/21 12:21 Completed BLOOD CULTURE Stat Lab 06/23/21 12:37 Received CBC W DIFF Stat Lab 06/23/21 12:21 Completed CMP Stat Lab 06/23/21 12:30 Completed Lactic Acid Stat Lab 06/23/21 12:21 Completed Lactic Acid Stat Lab 06/23/21 15:20 Completed MAGNESIUM Stat Lab 06/23/21 12:30 Completed NT PRO BNP Stat Lab 06/23/21 12:30 Completed POCT GLUCOSE Stat Lab 06/23/21 12:18 Completed TROPONIN Q3H Lab 06/24/21 00:30 Ordered TROPONIN Q3H Lab 06/23/21 12:30 Completed TROPONIN Q3H Lab 06/23/21 15:35 Completed TROPONIN Q3H Lab 06/23/21 18:30 Ordered TROPONIN Q3H Lab 06/23/21 21:30 Ordered UA W/RFX UR CULTURE Stat Lab 06/23/21 14:09 Completed Medication Summary Discontinued Medications Generic Name Dose Route Start Last Admin Trade Name Freq PRN Reason Stop Dose Admin Lactated Ringer's 1,000 mls @ 999 mls/hr 06/23/21 12:22 06/23/21 13:35 Lactated Ringers IV 06/23/21 13:22 Infused .Q1H1M ONE Infusion Lactated Ringer's Confirm 06/23/21 12:24 Lactated Ringers Administered 06/23/21 12:25 Dose 1,000 mls @ ud IV .STK-MED ONE Lactated Ringer's 1,000 mls @ 999 mls/hr 06/23/21 14:54 06/23/21 14:56 Lactated Ringers IV 06/23/21 15:54 999 mls/hr .Q1H1M ONE Administration Lactated Ringer's Confirm 06/23/21 14:54 Lactated Ringers Administered 06/23/21 14:55 Dose 1,000 mls @ ud IV .STK-MED ONE Lab/Rad Data: Laboratory Result Diagrams 06/23/21 12:21 06/23/21 12:30 Laboratory Results 06/23/21 06/23/21 06/23/21 Range/Units 15:35 15:20 14:09 WBC (4.0-10.5) K/mm3 RBC (4.1-5.4) M/mm3 Hgb (12.0-16.0) gm/dl Hct (35-47) % MCV (78-100) fl MCH (26-32) pg MCHC (32-36) g/dl RDW (11.5-14.0) % Plt Count (150-450) K/mm3 MPV (7.5-11.0) fl Gran % (36.0-66.0) % Eos # (Auto) (0-0.5) Absolute Lymphs (auto) (1.0-4.6) Absolute Monos (auto) (0.0-1.3) Lymphocytes % (24.0-44.0) % Monocytes % (0.0-12.0) % Eosinophils % (0.00-5.0) % Basophils % (0.0-0.4) % Absolute Granulocytes (1.4-6.9) Basophils # (0-0.4) Sodium (137-145) mmol/L Potassium (3.5-5.1) mmol/L Chloride (98-107) mmol/L Carbon Dioxide (22-30) mmol/L Anion Gap (5-15) MEQ/L BUN (7-17) mg/dL Creatinine (0.52-1.04) mg/dL Estimated GFR ML/MIN Glucose (74-106) mg/dL POC Glucometer (74 to 106) mg/dL Lactic Acid 0.7 (0.4-2.0) Calcium (8.4-10.2) mg/dL Magnesium (1.6-2.3) mg/dL Total Bilirubin (0.2-1.3) mg/dL AST (14-36) U/L ALT (0-35) U/L Alkaline Phosphatase (38-126) U/L Troponin I < 0.012 (0.000-0.034) ng/mL NT-Pro-B Natriuret Pep (0-450) pg/mL Serum Total Protein (6.3-8.2) g/dL Albumin (3.5-5.0) g/dL Urine Color YELLOW (YELLOW) Urine Appearance SLIGHTLY CLOUDY (CLEAR) Urine pH 6.0 (5-6) Ur Specific Joes 1.021 (1.005-1.025) Urine Protein NEGATIVE (Negative) Urine Ketones NEGATIVE (NEGATIVE) Urine Blood NEGATIVE (0-5) Charly/ul Urine Nitrite NEGATIVE (NEGATIVE) Urine Bilirubin NEGATIVE (NEGATIVE) Urine Urobilinogen 2 (0-1) mg/dL Ur Leukocyte Esterase NEGATIVE (NEGATIVE) Urine WBC (Auto) 0-2 (0-5) /HPF Urine RBC (Auto) NONE (0-2) /HPF U Epithel Cells (Auto) RARE (FEW) /HPF Urine Bacteria (Auto) NONE (NEGATIVE) /HPF Urine Mucus (Auto) SLIGHT (NEGATIVE) /HPF Urine Culture Reflexed NO (NO) Urine Glucose NEGATIVE (NEGATIVE) mg/dL 06/23/21 06/23/21 06/23/21 Range/Units 12:30 12:30 12:21 WBC (4.0-10.5) K/mm3 RBC (4.1-5.4) M/mm3 Hgb (12.0-16.0) gm/dl Hct (35-47) % MCV (78-100) fl MCH (26-32) pg MCHC (32-36) g/dl RDW (11.5-14.0) % Plt Count (150-450) K/mm3 MPV (7.5-11.0) fl Gran % (36.0-66.0) % Eos # (Auto) (0-0.5) Absolute Lymphs (auto) (1.0-4.6) Absolute Monos (auto) (0.0-1.3) Lymphocytes % (24.0-44.0) % Monocytes % (0.0-12.0) % Eosinophils % (0.00-5.0) % Basophils % (0.0-0.4) % Absolute Granulocytes (1.4-6.9) Basophils # (0-0.4) Sodium 140 (137-145) mmol/L Potassium 3.9 (3.5-5.1) mmol/L Chloride 104 (98-107) mmol/L Carbon Dioxide 27 (22-30) mmol/L Anion Gap 12.5 (5-15) MEQ/L BUN 20 H (7-17) mg/dL Creatinine 0.78 (0.52-1.04) mg/dL Estimated GFR > 60.0 ML/MIN Glucose 118 H (74-106) mg/dL POC Glucometer (74 to 106) mg/dL Lactic Acid 2.5 H (0.4-2.0) Calcium 8.1 L (8.4-10.2) mg/dL Magnesium 1.8 (1.6-2.3) mg/dL Total Bilirubin 0.70 (0.2-1.3) mg/dL AST 23 (14-36) U/L ALT 17 (0-35) U/L Alkaline Phosphatase 90 (38-126) U/L Troponin I < 0.012 (0.000-0.034) ng/mL NT-Pro-B Natriuret Pep 20.3 (0-450) pg/mL Serum Total Protein 6.0 L (6.3-8.2) g/dL Albumin 3.5 (3.5-5.0) g/dL Urine Color (YELLOW) Urine Appearance (CLEAR) Urine pH (5-6) Ur Specific Joes (1.005-1.025) Urine Protein (Negative) Urine Ketones (NEGATIVE) Urine Blood (0-5) Charly/ul Urine Nitrite (NEGATIVE) Urine Bilirubin (NEGATIVE) Urine Urobilinogen (0-1) mg/dL Ur Leukocyte Esterase (NEGATIVE) Urine WBC (Auto) (0-5) /HPF Urine RBC (Auto) (0-2) /HPF U Epithel Cells (Auto) (FEW) /HPF Urine Bacteria (Auto) (NEGATIVE) /HPF Urine Mucus (Auto) (NEGATIVE) /HPF Urine Culture Reflexed (NO) Urine Glucose (NEGATIVE) mg/dL 06/23/21 06/23/21 Range/Units 12:21 12:18 WBC 5.3 (4.0-10.5) K/mm3 RBC 4.07 L (4.1-5.4) M/mm3 Hgb 12.6 (12.0-16.0) gm/dl Hct 39.2 (35-47) % MCV 96.3 (78-100) fl MCH 31.0 (26-32) pg MCHC 32.1 (32-36) g/dl RDW 12.5 (11.5-14.0) % Plt Count 202 (150-450) K/mm3 MPV 10.8 (7.5-11.0) fl Gran % 58.8 (36.0-66.0) % Eos # (Auto) 0.71 H (0-0.5) Absolute Lymphs (auto) 1.10 (1.0-4.6) Absolute Monos (auto) 0.35 (0.0-1.3) Lymphocytes % 20.9 L (24.0-44.0) % Monocytes % 6.6 (0.0-12.0) % Eosinophils % 13.5 H (0.00-5.0) % Basophils % 0.2 (0.0-0.4) % Absolute Granulocytes 3.10 (1.4-6.9) Basophils # 0.01 (0-0.4) Sodium (137-145) mmol/L Potassium (3.5-5.1) mmol/L Chloride (98-107) mmol/L Carbon Dioxide (22-30) mmol/L Anion Gap (5-15) MEQ/L BUN (7-17) mg/dL Creatinine (0.52-1.04) mg/dL Estimated GFR ML/MIN Glucose (74-106) mg/dL POC Glucometer 121 H (74 to 106) mg/dL Lactic Acid (0.4-2.0) Calcium (8.4-10.2) mg/dL Magnesium (1.6-2.3) mg/dL Total Bilirubin (0.2-1.3) mg/dL AST (14-36) U/L ALT (0-35) U/L Alkaline Phosphatase (38-126) U/L Troponin I (0.000-0.034) ng/mL NT-Pro-B Natriuret Pep (0-450) pg/mL Serum Total Protein (6.3-8.2) g/dL Albumin (3.5-5.0) g/dL Urine Color (YELLOW) Urine Appearance (CLEAR) Urine pH (5-6) Ur Specific Joes (1.005-1.025) Urine Protein (Negative) Urine Ketones (NEGATIVE) Urine Blood (0-5) Charly/ul Urine Nitrite (NEGATIVE) Urine Bilirubin (NEGATIVE) Urine Urobilinogen (0-1) mg/dL Ur Leukocyte Esterase (NEGATIVE) Urine WBC (Auto) (0-5) /HPF Urine RBC (Auto) (0-2) /HPF U Epithel Cells (Auto) (FEW) /HPF Urine Bacteria (Auto) (NEGATIVE) /HPF Urine Mucus (Auto) (NEGATIVE) /HPF Urine Culture Reflexed (NO) Urine Glucose (NEGATIVE) mg/dL - Progress Progress: improved Progress Note: 06/23/21 16:16 She is given IV fluids bolus x2, on reevaluation feeling better. Nonfocal neuro exam. Work-up showing mild dehydration. No other acute findings. Recommended increase hydration and outpatient follow-up. Discussed signs symptoms of worsening needing return to ER which she seems understanding. Stable for discharge. Counseled pt/family regarding: lab results, diagnosis, need for follow-up, rad results - Departure Departure Disposition: Home Clinical Impression: General weakness Condition: Stable Critical Care Time: No Referrals: RIANNA CUELLAR [Primary Care Provider] - Follow Up with PCP/3 days Instructions: Generalized Weakness (DC) Additional Instructions: Drink plenty of fluids to keep yourself hydrated. Follow-up with primary care and neurologist for reevaluation. Continue with your current medications. Return to ER for any worsening.
--- NOTE | 2021-06-23 12:59 | XRAY ---
Indication: Weakness. Comparison: July 12, 2020. Portable chest slightly less inflated crowding the lung bases with stable right lung calcified granuloma. No focal infiltrate, consolidation, or large effusion. Heart not enlarged with new left Port-A-Cath. Bony thorax intact. Impression: Nonacute chest with chronic features..
[2021-06-23 13:29] LABS: Basophil (Absolute #) 0.01 (0-0.4); Eosinophil % 13.5 % (0.00-5.0); Eosinophil (Absolute #) 0.71 (0-0.5); Hematocrit 39.2 % (35-47); Hemoglobin 12.6 gm/dl (12.0-16.0); Lymphocytes % 20.9 % (24.0-44.0); Mean Cell Volume 96.3 fl (78-100); Mean Corpuscular Hgb Concent. 32.1 g/dl (32-36); Mean Platelet Volume 10.8 fl (7.5-11.0); Monocyte (Absolute #) 0.35 (0.0-1.3); Monocytes % 6.6 % (0.0-12.0); Neutrophil % 58.8 % (36.0-66.0); Platelet Count 202 K/mm3 (150-450); Red Blood Count 4.07 M/mm3 (4.1-5.4); Red Cell Distribution Width 12.5 % (11.5-14.0); White Blood Count 5.3 K/mm3 (4.0-10.5)
[2021-06-23 13:45] LABS: ALBUMIN 3.5 g/dL (3.5-5.0); ALKALINE PHOSPHATASE 90 U/L (38-126); ANION GAP 12.5 MEQ/L (5-15); BLOOD UREA NITROGEN 20 mg/dL (7-17); CHLORIDE 104 mmol/L (98-107); Calcium 8.1 mg/dL (8.4-10.2); Carbon Dioxide 27 mmol/L (22-30); Creatinine 1 0.78 mg/dL (0.52-1.04); EST GLOMERULAR FILTRATION RATE > 60.0 ML/MIN; Glucose 118 mg/dL (74-106); MAGNESIUM 1.8 mg/dL (1.6-2.3); NT PRO BNP 20.3 pg/mL (0-450); Potassium 3.9 mmol/L (3.5-5.1); SGOT/AST 23 U/L (14-36); SGPT/ALT 17 U/L (0-35); SODIUM 140 mmol/L (137-145)
[2021-06-23 14:20] LABS: Appearance SLIGHTLY CLOUDY (CLEAR); Bilirubin NEGATIVE (NEGATIVE); Blood NEGATIVE Ery/ul (0-5); Epithelial Cells RARE /HPF (FEW); Glucose NEGATIVE (NEGATIVE); Ketones NEGATIVE (NEGATIVE); Leukocyte Esterase NEGATIVE (NEGATIVE); Mucus SLIGHT /HPF (NEGATIVE); Nitrite NEGATIVE (NEGATIVE); Protein,Urine Dip NEGATIVE (Negative); Specific Gravity 1.021 (1.005-1.025); Urobilinogen 2 mg/dL (0-1); WBC 0-2 /HPF (0-5)
[2021-06-23 16:17] VITALS: O2SAT 96
[2021-06-23 16:58] VITALS: BP 124/75; PULSE 84
== END 2021-06-23 17:10 | disposition home or self-care (01) ==
LOC: ED 11:43
DX: R53.1 Weakness (principal); R53.83 Other fatigue; G70.2 Congenital and developmental myasthenia; I49.8 Other specified cardiac arrhythmias; I95.1 Orthostatic hypotension; Z79.891 Long term (current) use of opiate analgesic; Z79.899 Other long term (current) drug therapy
CPT/HCPCS: 36415; 71045; 80053; 81001; 82947; 83605; 83735; 83880; 84484; 85025; 87040; 93005; 93041; 96360; 96361; 99285; J1642

== ENCOUNTER 2021-12-20 15:16 | Emergency (ER) | payer OTHER ==
--- NOTE | 2021-12-20 15:18 | ERPHSYRPT ---
- History of Present Illness Time Seen by Provider: 12/20/21 15:18 Source: patient Exam Limitations: no limitations Physician History: This is a 41-year-old white female who has some general muscle issues as well as Bárbara's thyroiditis and has a left subclavian portacatheter in place. In the last 2 weeks it has not been functioning well per patient report. She believes that has been present for 4 to 6 months. She was concerned today because she was having some pain that was shooting up and around the Port-A-Cath site. She had not experienced that before. Timing/Duration: week(s) (2) Severity: mild Associated Symptoms: denies symptoms Allergies/Adverse Reactions: NSAIDS (Non-Steroidal Anti-Inflamma Adverse Reaction (Unknown, Verified 12/20/21 15:50) No NSAIDS due to bariatric surgery. Home Medications: Cyclobenzaprine HCl 10 mg [Cyclobenzaprine 10 MG] 10 mg PO TIDPRN 06/30/15 [History] Omeprazole [Prilosec] 40 mg PO DAILY 06/30/15 [History] Albuterol Common Canister [Ventolin Common Canister] 2 puff IH Q4H PRN 12/20/18 [History] Fluoxetine HCl 20 mg [Prozac 20 MG] 1 cap PO HS 12/20/18 [History] Fluticasone/Vilanterol [Breo Ellipta 100-25 Mcg INH] 1 each IH DAILY 12/20/18 [History] Pedi Multivit No.25/Folic Acid [Flintstones Multivit Chew Tab] 2 tab PO DAILY 12/20/18 [History] Gabapentin 800 mg PO TID 01/29/20 [History] Montelukast Sodium [Singulair] 4 mg PO DAILY 01/29/20 [History] Tiotropium [place] [Spiriva Respimat] 4 gm IH DAILY 01/29/20 [History] Azelastine Nasal [Astelin Nasal] 1 spray INTRANASAL UD 03/25/20 [History] Diclofenac Sodium Gel [Voltaren GEL] 1 applic TOP UD PRN 03/25/20 [History] Estradiol 1 mg [Estrace 1 mg] 1 mg PO DAILY 03/25/20 [History] Ondansetron ODT 4 MG [Zofran Odt 4 mg] 4 mg PO Q4-6HPRN PRN 03/25/20 [History] Pyridostigmine [place] [Mestinon] 60 mg PO TID 03/25/20 [History] Topiramate [Topamax] 50 mg PO BID 03/25/20 [History] Trazodone HCl 150 mg PO HS 03/25/20 [History] Isomethept/Acetaminop/Dichlphn [Midrin Capsule] 10 mg PO TID 01/11/21 [History] Pramipexole Di-HCl 0.5 mg [Mirapex 0.5 MG Tablet] 1 ea DAILY 01/11/21 [History] Hydrocodone/APAP 5-325 Tab^^^ [[place] 5-325 Tablet^^^] 10 - 325 mg PO TID MDD 6 01/12/21 [History] Cyanocobalamin 1000 Mcg/ml [Cyanocobalamin B-12 1000 MCG/ML] 1,000 mcg SQ DIRECTIONS UNKNOWN 05/12/21 [History] Duloxetine HCl 30 mg [Cymbalta 30 MG Capsule] 60 mg PO DAILY 05/12/21 [History] Ergocalciferol (Vitamin D2) [Vitamin D2] 1 cap PO 2XW 05/12/21 [History] Pramipexole Di-HCl [Pramipexole Dihydrochloride] 1 tab PO DAILY 05/12/21 [History] Fluoxetine HCl 20 mg [Prozac 20 MG] 20 mg PO DAILY 05/16/21 [History] Hx Tetanus, Diphtheria Vaccination/Date Given: (unk) Hx Influenza Vaccination/Date Given: No Hx Pneumococcal Vaccination/Date Given: No Travel Risk - International Travel Have you traveled outside of the country in past 3 weeks: No - Coronavirus Screening Are you exhibiting any of the following symptoms?: No Close contact with a COVID-19 positive Pt in past 14-21 Days: No - Vaccine Status Have you recieved a Covid-19 vaccination: Yes Head Nurse: Moderna - Vaccination Dates Date of 2cond Vaccination (if applicable): March 2021 - Review of Systems Constitutional: No Symptoms Eyes: No Symptoms Ears, Nose, & Throat: No Symptoms Respiratory: No Symptoms Cardiac: No Symptoms Abdominal/Gastrointestinal: No Symptoms Genitourinary Symptoms: No Symptoms Musculoskeletal: Other (Left chest wall tenderness in the area of the Port-A-Cath) Skin: No Symptoms Neurological: No Symptoms Psychological: No Symptoms Endocrine: No Symptoms Hematologic/Lymphatic: No Symptoms Immunological/Allergic: No Symptoms All Other Systems: Reviewed and Negative - Past Medical History Pertinent Past Medical History: Yes Neurological History: Migraines, Peripheral Neuropathy, Other ENT History: Other Cardiac History: Other Respiratory History: Asthma Endocrine Medical History: Other Musculoskeletal History: Other GI Medical History: GERD, Gallbladder Disease History: No Pertinent History Psycho-Social History: No Pertinent History Female Reproductive Disorders: Menstrual Problems Other Medical History: Congenital Myathenic Syndrome , Hashimotos, Bariatric surgery, enlarged spleen, Peripherial neuropathy. Throat strictures. postural tachycardia. cms, arthritis, back surgery in 2011 for herniated disc. Bone spurs, arthritis in neck,MS,Fibromyalgia - Past Surgical History Past Surgical History: Yes Neuro Surgical History: No Pertinent History Cardiac: Cardiac Catheterization Respiratory: No Pertinent History Gastrointestinal: Other Genitourinary: No Pertinent History Musculoskeletal: Orthopedic Surgery Female Surgical History: Hysterectomy, Dilation & Curettage, Other Other Surgical History: uterine thermal ablation, back surgery 2011 ,L knee scope D & C , several cyst. removed. thyroid biopsy. bariatric surgery 10/23/18. ear tubes. throat stretched and port placed - Social History Smoking Status: Never smoker Exposure to second hand smoke: No Drug Use: none Patient Lives Alone: No - Nursing Vital Signs Nursing Vital Signs: Initial Vital Signs Temperature 97.0 F 12/20/21 15:49 Pulse Rate 93 H 12/20/21 15:49 Respiratory Rate 16 12/20/21 15:49 Blood Pressure 117/63 12/20/21 15:49 O2 Sat by Pulse Oximetry 97 12/20/21 15:49 Pain Scale Pain Intensity 7 - Physical Exam General Appearance: no apparent distress, alert, anxiety Eye Exam: PERRL/EOMI, eyes nml inspection Ears, Nose, Throat Exam: normal ENT inspection, moist mucous membranes Neck Exam: normal inspection, non-tender, supple, full range of motion Respiratory Exam: normal breath sounds, chest tenderness (Localized in the area of the left Port-A-Cath site), lungs clear, airway intact, No respiratory distress Cardiovascular Exam: regular rate/rhythm, normal heart sounds, normal peripheral pulses Gastrointestinal/Abdomen Exam: soft, normal bowel sounds, No tenderness Pelvic Exam: not done Rectal Exam: not done Back Exam: normal inspection, normal range of motion, No CVA tenderness, No vertebral tenderness Extremity Exam: normal inspection, normal range of motion, pelvis stable Neurologic Exam: alert, oriented x 3, cooperative, video operator II-XII nml as tested, normal mood/affect, nml cerebellar function, nml station & gait, sensation nml Skin Exam: normal color, warm, dry, other (Evidence of ecchymosis, hematoma or infection in the skin overlying the Port-A-Cath site.) Lymphatic Exam: No adenopathy SpO2 Interpretation: normal O2 Delivery: Room Air - Course Nursing assessment & vital signs reviewed: Yes Ordered Tests: Active Orders 24 hr Category Date Time Status CHEST 1 VIEW (PORTABLE) Stat Exams 12/20/21 16:54 Completed - Progress Progress: unchanged, re-examined Progress Note: 12/20/21 17:40 Chest x-ray shows the port on the left side in the appropriate position with the catheter intact and the tip of the catheter in the proximal SVC. Counseled pt/family regarding: diagnosis, need for follow-up, rad results - Departure Departure Disposition: Home Clinical Impression: Port-A-Cath in place Condition: Stable Critical Care Time: No Referrals: RIANNA CUELLAR [Primary Care Provider] - Follow up/PCP as directed Additional Instructions: Continue your Port-A-Cath care as instructed in the past. Follow-up with your general surgeon to determine the next step for your Port-A-Cath.
[2021-12-20 17:21] VITALS: BP 123/81; PULSE 89; O2SAT 98
--- NOTE | 2021-12-20 17:26 | XRAY ---
ONE VIEW CHEST: [AP portable upright - one view]. COMPARISON: AP upright portable chest film from 06/23/2021. INDICATION: Patient states nonfunctioning ebony catheter. REPORT: [The heart size and contour are normal. The kimberly and mideiastinal structures appear intact. I again see a left-sided ebony catheter with the tip pointing inferiorly within the mid SVC. The catheter does not appear to be broken. The lung rodriguez are well expanded and appear clear, except for a stable granulomatous calcification at the right lung base.. Pulmonary vascularity is normal. There is no pneumothorax or pleural effusion. The visualized bones appear grossly intact.] IMPRESSION: 1. No acute cardiopulmonary disease is seen. A stable granulomatous calcification is again seen at the right lung base. 2. Left-sided ebony catheter in position, as discussed above, representing no change from 06/23/2021.
== END 2021-12-20 18:18 | disposition home or self-care (01) ==
LOC: ED 15:16
DX: T82.848A Pain due to vascular prosthetic devices, implants and grafts, initial encounter (principal); Z79.899 Other long term (current) drug therapy
CPT/HCPCS: 71045; 99282

== ENCOUNTER 2022-04-04 12:29 | Day surgery (SDC) | payer OTHER ==
[2022-04-04] MEDS ORDERED: BUPIVACAINE 0.5% VIAL IJ ONE (12:30)
[2022-04-04] MEDS ORDERED: Decadron 4 MG INJ IV ONE (12:30)
[2022-04-04] MEDS ORDERED: LIDOCAINE HCL 1% 50 MG/5 ML VL PF IJ ONE (12:30)
[2022-04-04] MEDS ORDERED: DIPRIVAN 200 MG/20 ML IV ONE ×2 (14:42→14:55)
--- NOTE | 2022-04-04 16:59 | XRAY ---
Indication: Right C2-C4 RFA. Intraoperative fluoroscopy provided for 20 seconds. 3 digital spot images submitted for interpretation demonstrates posterior needle tips projecting over the expected right C2-C4 nerve roots. Correlate with intraoperative findings/report.
--- NOTE | 2022-04-04 17:04 | XRAY ---
20 seconds of fluoroscopy was used in surgery for a right C2-C4 RFA.
== END 2022-04-04 15:20 | disposition home or self-care (01) ==
LOC: SDC-PAIN 12:29
PROVIDERS: ATTEND Psychiatry & Neurology Pain Medicine
DX: M47.812 Spondylosis without myelopathy or radiculopathy, cervical region (principal); Z79.899 Other long term (current) drug therapy
CPT/HCPCS: 64633; 64634; 72040; 77002; J1100; J1642; J2001; J2704

== ENCOUNTER 2022-04-11 12:29 | Day surgery (SDC) | payer OTHER ==
[2022-04-11] MEDS ORDERED: Decadron 4 MG INJ IV ONE (12:30)
[2022-04-11] MEDS ORDERED: Marcaine Mpf 0.5% Vial 30 Ml IJ ONE (12:30)
[2022-04-11] MEDS ORDERED: DIPRIVAN 200 MG/20 ML IV ONE (15:08)
[2022-04-11] MEDS ORDERED: Lactated Ringers 1,000 ML IV ONE (15:21)
--- NOTE | 2022-04-11 16:42 | XRAY ---
Indication: Left C2-C4 RFA. Intraoperative fluoroscopy provided for 19 seconds. 3 digital spot image submitted for interpretation demonstrates posterior needle tips projecting over the expected left C2-C4 nerve roots. Correlate with intraoperative findings/report.
--- NOTE | 2022-04-11 16:49 | XRAY ---
19 seconds fluoroscopy time in surgery for left C2-C4 RFA.
== END 2022-04-11 15:33 | disposition home or self-care (01) ==
LOC: SDC-PAIN 12:29
PROVIDERS: ATTEND Psychiatry & Neurology Pain Medicine
DX: M47.812 Spondylosis without myelopathy or radiculopathy, cervical region (principal); Z79.899 Other long term (current) drug therapy
CPT/HCPCS: 64633; 64634; 72040; 77002; J1100; J1642; J2704

== ENCOUNTER 2023-12-22 17:23 | Emergency (ER) | payer OTHER ==
--- NOTE | 2023-12-22 17:28 | ERPHSYRPT ---
- History of Present Illness Time Seen by Provider: 12/22/23 17:28 Source: patient Exam Limitations: no limitations Physician History: This is a 43-year-old white female patient who was peeling onions prior to arrival and she accidentally lacerated the tip of her left fourth digit. Her tetanus status is not up-to-date. Patient has a history of migraine headache, asthma, hypothyroidism, gastroesophageal reflux disease and Bárbara's disease. Timing/Duration: today Quality: painful Severity: mild Location: hands (Left hand tip of fourth digit) Associated Symptoms: denies symptoms Allergies/Adverse Reactions: NSAIDS (Non-Steroidal Anti-Inflamma Adverse Reaction (Unknown, Verified 12/22/23 17:27) No NSAIDS due to bariatric surgery. Home Medications: Cyclobenzaprine HCl 10 mg [Cyclobenzaprine 10 MG] 10 mg PO TIDPRN 06/30/15 [History] Omeprazole [Prilosec] 40 mg PO DAILY 06/30/15 [History] Albuterol Common Canister [Ventolin Common Canister] 2 puff IH Q4H PRN 12/20/18 [History] Fluoxetine HCl 20 mg [Prozac 20 MG] 1 cap PO HS 12/20/18 [History] Fluticasone/Vilanterol [Breo Ellipta 100-25 Mcg Inhalr] 1 each IH DAILY 12/20/18 [History] Pedi Multivit No.25/Folic Acid [Flintstones Multivit Chew Tab] 2 tab PO DAILY 12/20/18 [History] Gabapentin 800 mg PO TID 01/29/20 [History] Montelukast Sodium [Singulair] 4 mg PO DAILY 01/29/20 [History] Tiotropium [place] [Spiriva Respimat] 4 gm IH DAILY 01/29/20 [History] Azelastine Nasal [Astelin Nasal] 1 spray INTRANASAL UD 03/25/20 [History] Diclofenac Sodium Gel [Voltaren GEL] 1 applic TOP UD PRN 03/25/20 [History] Estradiol 1 mg [Estrace 1 mg] 1 mg PO DAILY 03/25/20 [History] Ondansetron ODT 4 MG [Zofran Odt 4 mg] 4 mg PO Q4-6HPRN PRN 03/25/20 [History] Pyridostigmine [place] [Mestinon] 60 mg PO TID 03/25/20 [History] Topiramate [Topamax] 50 mg PO BID 03/25/20 [History] Trazodone HCl 150 mg PO HS 03/25/20 [History] Isomethept/Acetaminop/Dichlphn [Midrin Capsule] 10 mg PO TID 01/11/21 [History] Pramipexole Di-HCl 0.5 mg [Mirapex 0.5 MG Tablet] 1 ea DAILY 01/11/21 [History] Hydrocodone/APAP 5-325 Tab^^^ [Ault 5-325 Tablet^^^] 10 - 325 mg PO TID MDD 6 01/12/21 [History] Cyanocobalamin 1000 Mcg/ml [Cyanocobalamin B-12 1000 MCG/ML] 1,000 mcg SQ DIRECTIONS UNKNOWN 05/12/21 [History] Duloxetine HCl 30 mg [Cymbalta 30 MG Capsule] 60 mg PO DAILY 05/12/21 [History] Ergocalciferol (Vitamin D2) [Vitamin D2] 1 cap PO 2XW 05/12/21 [History] Pramipexole Di-HCl [Pramipexole Dihydrochloride] 1 tab PO DAILY 05/12/21 [History] Fluoxetine HCl 20 mg [Prozac 20 MG] 20 mg PO DAILY 05/16/21 [History] Hx Tetanus, Diphtheria Vaccination/Date Given: (unk) Hx Influenza Vaccination/Date Given: No Hx Pneumococcal Vaccination/Date Given: No Travel Risk - International Travel Have you traveled outside of the country in past 3 weeks: No - Emerging Infectious Disease Are you exhibiting symptoms associated with any current EIDs: No - Review of Systems Constitutional: No Symptoms Eyes: No Symptoms Ears, Nose, & Throat: No Symptoms Respiratory: No Symptoms Cardiac: No Symptoms Abdominal/Gastrointestinal: No Symptoms Genitourinary Symptoms: No Symptoms Musculoskeletal: No Symptoms Skin: No Symptoms Neurological: No Symptoms Psychological: No Symptoms Endocrine: No Symptoms Hematologic/Lymphatic: No Symptoms - Past Medical History Pertinent Past Medical History: Yes Neurological History: Migraines, Other ENT History: Other Cardiac History: Other Respiratory History: Asthma Endocrine Medical History: Hypothyroidism Musculoskeletal History: Osteoarthritis GI Medical History: GERD, Gallbladder Disease History: No Pertinent History Psycho-Social History: No Pertinent History Female Reproductive Disorders: Menstrual Problems Other Medical History: BÁRBARA'S. MS. POSTURAL ORTHOSTATIC TACHYCARDIA SYNDROME. PORT PLACEMENT IN R CHEST. - Past Surgical History Past Surgical History: Yes Neuro Surgical History: No Pertinent History Cardiac: Cardiac Catheterization Respiratory: No Pertinent History Gastrointestinal: Other Genitourinary: No Pertinent History Musculoskeletal: Orthopedic Surgery Female Surgical History: Hysterectomy, Dilation & Curettage, Other Other Surgical History: uterine thermal ablation, back surgery 2011 ,L knee scope D & C , several cyst. removed. thyroid biopsy. bariatric surgery 10/23/18. ear tubes. throat stretched and port placed - Social History Smoking Status: Never smoker Exposure to second hand smoke: No Drug Use: none Patient Lives Alone: No - Nursing Vital Signs Nursing Vital Signs: Initial Vital Signs Temperature 97.1 F 12/22/23 17:27 Pulse Rate 77 12/22/23 17:27 Respiratory Rate 18 12/22/23 17:27 Blood Pressure 126/82 12/22/23 17:27 O2 Sat by Pulse Oximetry 97 12/22/23 17:27 Pain Scale Pain Intensity 4 - Physical Exam General Appearance: no apparent distress, alert, anxiety Eye Exam: PERRL/EOMI, eyes nml inspection Ears, Nose, Throat Exam: normal ENT inspection, moist mucous membranes Neck Exam: normal inspection, non-tender, supple, full range of motion Respiratory Exam: airway intact, No chest tenderness, No respiratory distress Gastrointestinal/Abdomen Exam: No tenderness, No guarding Pelvic Exam: No not done Rectal Exam: No not done Extremity Exam: normal range of motion, pelvis stable Neurologic Exam: alert, oriented x 3, cooperative, herbologist II-XII nml as tested, normal mood/affect, nml cerebellar function, nml station & gait, sensation nml Skin Exam: other (1 cm flap laceration tip of palmar aspect fourth digit left hand. No active bleeding. Neurovascularly intact, tendons intact) Lymphatic Exam: No adenopathy SpO2 Interpretation: normal O2 Delivery: Room Air Procedures - Laceration/Wound Repair Left Distal Volar Finger Time of Procedure: 17:50 Wound Location: Left, hand (Distal, palmar aspect flap) Wound Length (cm): 1 Wound's Depth, Shape: superficial, flap Wound Explored: clean (Wound explored to the base. It is a clean wound. Wound was explored in a bloodless field. No foreign body present) Irrigated: Yes Hibiclens Prep: Yes Wound Repaired With: Steri-strips, Dermabond - Course Nursing assessment & vital signs reviewed: Yes Ordered Tests: Medication Summary Discontinued Medications Generic Name Dose Route Start Last Admin Trade Name Elizabeth PRN Reason Stop Dose Admin Diphtheria/Tetanus/Acell Pertussis 0.5 ml 12/22/23 17:37 12/22/23 17:51 Tdap --Diph,Pertuss(Acell),Tet Vac/Pf 0.5 Ml Vial IM 12/22/23 17:38 0.5 ml .ONCE ONE Administration Diphtheria/Tetanus/Acell Pertussis Confirm 12/22/23 17:50 Tdap --Diph,Pertuss(Acell),Tet Vac/Pf 0.5 Ml Vial Administered 12/22/23 17:51 Dose 0.5 ml IM .[facility] ONE - Progress Progress: improved, re-examined Progress Note: 12/22/23 18:04 My medical decision making and the assignment of low complexity to this patient's medical issue today is based on review of the patient's past medical history, review of the patient's medication list, review of patient drug allergy list, history present illness and physical findings on examination. No laboratory radiographic studies are necessary in this patient. Patient will receive Adacel injection. Counseled pt/family regarding: diagnosis, need for follow-up Medical Desision Making - Independent Historian Additional History obtained from: Spouse - Diagnostic Testing Diagnostic test were ordered, analyzed, and reviewed by me: No - Risk of complications Low Risk: Low risk of morbidity from additional dx testing or treatment - Departure Departure Disposition: Home Clinical Impression: Laceration of finger Condition: Stable Critical Care Time: No Referrals: RIANNA CUELLAR [Primary Care Provider] - Follow up/PCP as directed Additional Instructions: Keep pressure dressing in place until the evening of 12/23/2023. At that time you may remove the pressure dressing and leave the Steri-Strips in place until they fall off on their own. After removing the pressure dressing on 12/23/2023, they rinsed your hand off with soapy water. Blot dry use a chair inspector. Do not rub the laceration repair site. If there are no contraindications use Tylenol for pain control. Follow-up with your primary care provider for further evaluation management.
[2023-12-22 17:36] VITALS: BP 126/82; PULSE 77; RESP 18; TEMP 97.1; O2SAT 97
[2023-12-22] MEDS ORDERED: Adacel Vial IM ONE (17:50)
[2023-12-22] MEDS: Adacel Vial IM ONE (17:51)
== END 2023-12-22 18:12 | disposition home or self-care (01) ==
LOC: ED 17:23
DX: S61.215A Laceration without foreign body of left ring finger without damage to nail, initial encounter (principal); W26.0XXA Contact with knife, initial encounter; Y93.G1 Activity, food preparation and clean up; Z79.899 Other long term (current) drug therapy; Z23 Encounter for immunization
CPT/HCPCS: 12001; 90471; 90715; 99282